=== PATIENT | male | born 1955 | race Caucasian/White ===

== ENCOUNTER 2017-12-19 17:21 | Emergency (ER) | payer OTHER, SELFPAY ==
[2017-12-19 17:22] VITALS: BP 179/98; PULSE 68; RESP 16; TEMP 36.9; O2SAT 100; BMI 30.1
--- NOTE | 2017-12-19 17:49 | ED.VISSUMM ---
- ER Visit Summary Date of Service: 12/19/17 Chief Complaint: Right index finger laceration History of Present Illness: The patient is a 62 M hand dominant. Yesterday he had his right index finger lacerated between 2 pipes. Said it was not smashed it was more sheared. This is more than 24 hours old. His tetanus is up-to-date less than 1 year ago. He denies other injuries. Physical Examination: Well-appearing male. Vital signs are stable afebrile. HEENT exam normal. Neck normal. Lungs clear to auscultation bilaterally. Heart regular rate and rhythm. Abdomen soft nontender. Extremities moving all 4. Neurovascular intact. His right index finger at the tip along the nail there is a laceration on the radial side. Oozing of blood. No gross bony deformity. He has full flexion-extension. Neurovascularly intact with normal sensation. Test Results: Patient did not want an x-ray obtained. Emergency Department Course and Treatment: Discussed with patient given his 24+ hours old we will not close it. Wound will be cleaned and dressed. Treatment Plan: Wound care. Return if any signs of infection. Disposition: Discharge Impression: Acute right index finger laceration with delayed presentation of more than 24 hours. (No repair) This note was generated with [employer] dictation software. It may contain incorrect words, spelling, and punctuation that were not noted in review of the chart prior to signing ED Disposition - Plan for ED Patient: Chief Complaint: Laceration Referrals: Angelica Fierro [Primary Care Provider] -
--- NOTE | 2017-12-19 17:52 | ED.DCSUM_ITS ---
- ER Visit Summary Date of Service: 12/19/17 Chief Complaint: Right index finger laceration History of Present Illness: The patient is a 62 M hand dominant. Yesterday he had his right index finger lacerated between 2 pipes. Said it was not smashed it was more sheared. This is more than 24 hours old. His tetanus is up-to- date less than 1 year ago. He denies other injuries. Physical Examination: Well-appearing male. Vital signs are stable afebrile. HEENT exam normal. Neck normal. Lungs clear to auscultation bilaterally. Heart regular rate and rhythm. Abdomen soft nontender. Extremities moving all 4. Neurovascular intact. His right index finger at the tip along the nail there is a laceration on the radial side. Oozing of blood. No gross bony deformity. He has full flexion-extension. Neurovascularly intact with normal sensation. Test Results: Patient did not want an x-ray obtained. Emergency Department Course and Treatment: Discussed with patient given his 24+ hours old we will not close it. Wound will be cleaned and dressed. Treatment Plan: Wound care. Return if any signs of infection. Disposition: Discharge Impression: Acute right index finger laceration with delayed presentation of more than 24 hours. (No repair) This note was generated with [employer] dictation software. It may contain incorrect words, spelling, and punctuation that were not noted in review of the chart prior to signing ED Disposition - Plan for ED Patient: Chief Complaint: Laceration Referrals: Angelica Fierro [Primary Care Provider] -
--- NOTE | 2017-12-19 17:52 | ED.DEP ---
ED Disposition - Plan for ED Patient: Disposition: Home or Assisted Living Chief Complaint: Laceration Instructions: ED Laceration Hand Referrals: Angelica Fierro [Primary Care Provider] - As Needed Additional Instructions: Keep wound clean. May wash thoroughly but dry thoroughly also. Motrin for pain and Tylenol. Watch for any signs of infection such as swelling, redness, fever, streaks or pus. If seen return.
== END 2017-12-19 18:11 | disposition home or self-care (01) ==
PROVIDERS: Emergency Provider Emergency Medicine; Family Provider Family Medicine; PCP Family Medicine
DX: S61.210A Laceration without foreign body of right index finger without damage to nail, initial encounter (principal); W23.1XXA Caught, crushed, jammed, or pinched between stationary objects, initial encounter; Y93.9 Activity, unspecified; Y92.9 Unspecified place or not applicable; Y99.9 Unspecified external cause status; I10 Essential (primary) hypertension
CPT/HCPCS: 99283

== ENCOUNTER 2020-12-15 13:34 | Inpatient (IN) | payer OTHER, BC, SELFPAY ==
[2020-12-15] VITALS (18 sets, daily range): BP systolic 110–166; BP diastolic 65–97; PULSE 65–103; RESP 13–20; TEMP 36.6–37.1; O2SAT 93–100; BMI 29.7; BMI 28.3
--- NOTE | 2020-12-15 14:06 | CT_ITS ---
STUDY: CT BRAIN WITHOUT CONTRAST REASON FOR EXAM: Male, 65 years old. Hallucinations RADIATION DOSAGE (If Supplied By Facility): CTDIvol = ( 38.43 ) mGy, DLP = ( 770.33 ) mGycm TECHNIQUE: Transaxial CT imaging of the brain was performed without administration of intravenous contrast material. Individualized dose optimization techniques were used for this CT. COMPARISON: No relevant priors. FINDINGS: Normal soft tissue structures. Normal calvarium. There is mild cerebral atrophy with widening of the extra-axial spaces and ventricular dilatation. Normal white matter tracts of the cerebral hemispheres. Normal basal ganglia and thalami. Normal brainstem. Normal cerebellum. There is no intracranial hemorrhage. There are no findings of an acute ischemic infarction. Opacification of the maxillary sinus bilaterally. Partial opacification of the ethmoid sinuses bilaterally. There is evidence of a nondisplaced transverse fracture of the base of the odontoid as seen on limited assessment of the upper cervical spine. CT/Brain/Head without Contrast IMPRESSION: Chronic involutional changes of the brain. Bilateral maxillary and ethmoid sinusitis. There is a nondisplaced transverse fracture at the base of the odontoid as seen on limited assessment of the upper cervical spine Electronically Signed: Michelet Alvarez MD at 15:03 EDT , Service support ,
--- NOTE | 2020-12-15 14:06 | EKG12_ITS ---
Test Reason : Blood Pressure : / mmHG Vent. Rate : 071 BPM Atrial Rate : 284 BPM P-R Int : 000 ms QRS Dur : 122 ms QT Int : 432 ms P-R-T Axes : 001 -50 071 degrees QTc Int : 469 ms Atrial flutter with 4:1 A-V conduction Left anterior fascicular block Left ventricular hypertrophy with QRS widening Nonspecific ST and T wave abnormality Abnormal ECG Confirmed by TERI CABRERA, ISHMAEL ([id number]), editorial clerk MELISSA HUMPHREYS ([id number]) on 12/16/2020 12:04:01 PM Referred By: MJ Confirmed By:ISHMAEL WILLIAMSON MD
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
[2020-12-15 14:43] LABS: Absolute Lymphocyte Count 0.71 X10^3/uL (0.83-4.51); Absolute Neutrophil Count 4.1 X10^3/uL (2.0-7.7); Basophil# 0.01 X10^3/uL; Basophil% 0.2 % (0-1); Eosinophil# 0.04 X10^3/uL; Eosinophils% 0.7 % (0-5); Hematocrit 34.8 % (40-54); Hemoglobin 12.4 g/dL (13.0-16.5); Lymphocyte # 0.71 X10^3/ul (0.83-4.51); Lymphocyte % 12.4 % (19-41); Mean Corp Hgb Conc 35.6 g/dL (32-36); Mean Corpuscular Hgb 27.8 pg (27.0-32.0); Mean Platelet Vol. 9.6 fl (6.2-12.0); Monocyte# 0.82 X10^3/uL; Monocyte% 14.3 % (0-10); NRBC Flagged by Analyzer 0 % (0-5); Neutrophil # 4.09 X10^3/uL (2.7-7.7); Neutrophil % 71.4 % (47-70); Platelet Count 280 K/mm3 (150-450); RBC Distribution Width CV 14.3 % (11.6-14.6); RBC Distribution Width SD 40.1 fl (35.1-43.9); Red Blood Count 4.46 M/mm3 (4.6-6.2); White Blood Count 5.7 K/mm3 (4.4-11.0)
[2020-12-15] MEDS: 0.9% Normal Saline 1,000 ML 150 ML IV (15:01)
[2020-12-15 15:02] LABS: AST(SGOT) 121 U/L (15-37); Alanine Aminotransfer ALT/SGPT 70 U/L (16-61); Albumin, Serum 3.5 g/dL (3.2-5.0); Alkaline Phosphatase 164 U/L (45-117); Anion Gap 12 (5-15); BUN 8 mg/dL (7-18); BUN/Creat Ratio 14.3 RATIO (10-20); Calcium,Total 8.2 mg/dL (8.5-10.1); Chloride 71 mmol/L (98-107); Creatinine, Serum 0.56 mg/dL (0.70-1.30); EST Glomerular Filtration Rate 156 mL/min (>60); Est Glom Filt Rate - Afr Amer 189 mL/min (>60); Estimated Creatinine Clearance 133.26 ml/min; Globulin 3.6 g/dL (2.2-4.2); Glucose 95 mg/dL (74-106); Potassium 3.4 mmol/L (3.5-5.1); Protein, Total 7.1 g/dL (6.4-8.2); Sodium Level 108 mmol/L (136-145); Troponin-I HS 22.8 pg/mL (3.0-78.5)
[2020-12-15 15:26] LABS: Bacteria 0 SEEN /hpf (None Seen); Mucous, Urine 0 SEEN /hpf (<or=2+); Red Blood Cells-Urine 0 SEEN /hpf (0-5); Squamous Epithelial Cells - UA 0 SEEN /hpf (0-5); White Blood Cells 0 SEEN /hpf (0-5)
[2020-12-15 15:29] LABS: Color, Urine Yellow (Yellow); Glucose, Dipstick Normal (Normal); Ketone-Dipstick 5 mg/dl (Negative); Leukocyte Esterase-Dipstick Negative /ul (Negative); Nitrite-Dipstick Negative (Negative); Occult Blood-Urine Negative /ul (Negative); Protein-Dipstick 15 mg/dl (Negative); Specific Gravity, Urine 1.015 (1.002-1.030); Urine Bilirubin Dipstick Negative (Negative); Urine Clarity Clear (Clear); Urine Urobilinogen Normal (Normal)
[2020-12-15 15:40] LABS: Amphetamine Urine VISTA NEGATIVE (<1000 ng/mL); Barbiturate Urine VISTA NEGATIVE (< 200 ng/mL); Benzodiazepine Urine VISTA NEGATIVE (< 200 ng/mL); Cocaine Urine VISTA NEGATIVE (< 300 ng/mL); Ecstacy Urine VISTA NEGATIVE (< 500 ng/mL); Methadone Urine VISTA NEGATIVE (< 300 ng/mL); PCP Urine VISTA NEGATIVE (< 25 ng/mL); THC Urine VISTA NEGATIVE (< 50 ng/mL); Vista UDS pH Range 7
--- NOTE | 2020-12-15 16:25 | NURSING ---
[id number] TERELETSANGEL HYPONATREMIA, HALLUCINATIONS
[2020-12-15 18:15] LABS: Thyroid Stim Hormone (TSH) 1.67 uIU/mL (0.358-3.74)
--- NOTE | 2020-12-15 18:20 | ECHOCS_ITS ---
Reason For Study: A. flutter Procedure This was a 2D Doppler, Color Flow transthoracic echocardiogram. The study was technically difficult. Patient intubated, scanned supine. Exam performed portable in ICU/CCU. Left Ventricle Normal LV size. Moderate concentric left ventricular hypertrophy. Left ventricular systolic function is normal. The estimated ejection fraction is 60 %. No regional wall motion abnormalities noted. Right Ventricle Normal RV size. Normal systolic function. Atria Normal left atrium. Normal right atrium. Mitral Valve An annuloplasty ring is noted in the mitral position. Tricuspid Valve Normal tricuspid valve. Aortic Valve Trisinus/trileaflet aortic valve. Pulmonic Valve The pulmonic valve is not well visualized. Great Vessels Normal aortic root. The pulmonary artery is normal size. Normal inferior vena cava. Pericardium/Pleural No pericardial effusion. Medication Diluted definity 2ml given slow IV push to enhance endocardial definition. MMode/2D Measurements & Calculations LVIDd: 4.0 cm IVSd: 1.5 cm Ao root diam: 3.6 cm LVIDs: 2.4 cm LVPWd: 1.4 cm RVDd: 3.2 cm FS: 40.2 % LAV(MOD-bp): 59.4 ml LVAd ap4: 33.9 cm2 SV(MOD-sp4): 67.2 ml LAV(MOD-bp) Indexed: 29.4 ml/m2 LVLd ap4: 8.2 cm LAV(MOD-sp2): 62.4 ml EDV(MOD-sp4): 113.4 ml LAV(MOD-sp4): 54.8 ml EDV(sp4-el): 119.6 ml LVAs ap4: 20.1 cm2 LVLs ap4: 7.3 cm ESV(MOD-sp4): 46.2 ml ESV(sp4-el): 47.2 ml EF(MOD-sp4): 59.3 % EF(sp4-el): 60.5 % SV(sp4-el): 72.4 ml LA A4 area: 20.0 cm2 LA dimension(2D): 4.3 cm RA A4 area: 17.1 cm2 Doppler Measurements & Calculations MV E max connor: 142.8 cm/sec MV V2 max: 140.0 cm/sec MV P1/2t max connor: 124.7 cm/sec MV max P.8 mmHg MV P1/2t: 114.3 msec MV V2 mean: 67.0 cm/sec MV dec slope: 319.7 cm/sec2 MV mean P.4 mmHg MVA(P1/2t): 1.9 cm2 MV V2 VTI: 33.6 cm Ao V2 max: 102.1 cm/sec LV V1 max: 88.6 cm/sec PA V2 max: 95.2 cm/sec Ao max P.2 mmHg LV V1 max P.1 mmHg TR max connor: 230.7 cm/sec TR max P.4 mmHg ECHO/Echo Complete W/ Contrast Interpretation Summary Normal LV size. Left ventricular systolic function is normal. The estimated ejection fraction is 60 %. Moderate concentric left ventricular hypertrophy. An annuloplasty ring is noted in the mitral position. Contrast injection was performed. Ordering Physician: Jimenez Gallo Referring Physician: Douglas Kathleen Performed By: Radha Johnson RDCS
[2020-12-15 18:21] LABS: Osmolality, Serum 221 mOsm/KG (280-301)
[2020-12-15 18:31] LABS: Urine Sodium 52 mmol/L (Not Establ.)
[2020-12-15 18:39] LABS: Osmolality, Urine 280 mOsm/KG
--- NOTE | 2020-12-15 19:07 | PCM.HP.STD ---
HPI - General General Date of Admission: 12/15/20 Date of Service: 12/15/20 Chief Complaint: Altered mental status HPI Narrative SOFÍA KOEHLER, is a 65 M who presents to the emergency room at [facility] after being brought in by his after he complained of seeing things at home which appear to be hallucinations. Patient's past medical history includes a recent fracture of C1 and C2 as well as T6 after he fell from a truck while working. This happened approximately 2 weeks ago while he was working in [place]. Patient was also briefly hospitalized at a local [facility] 6 to 8 weeks ago with low sodium, according to the , the etiology of the low sodium was never ascertained. Work-up in the emergency room today included a CT of the brain which showed no acute process, patient had labs performed which showed a low sodium at 108, patient's chloride was also low at 71, his potassium was slightly low at 3.4. Patient's AST was elevated at 121, ALT was elevated at 70, and alkaline phosphatase was elevated at 164. Patient's EKG showed atrial flutter at a 4-1 conduction. On examination, patient appeared alert and he responded appropriately to simple questions. Patient will be admitted to ICU for hyponatremia-etiology unclear and new onset atrial flutter, he will be seen in consultation by nephrology who I talked with by phone today (Dr. Crockett), critical care will be consulted. Patient will have an echocardiogram performed, patient's rate is well controlled on his home metoprolol. ON LICENSE OF [facility] Medical History (Updated 12/15/20 @ 16:[address] Kaushik Martinez, ) Burst fracture of lumbar vertebra C1 cervical fracture HTN (hypertension) Lumbar compression fracture Non-smoker Thoracic compression fracture Home Medications metoprolol tartrate 50 mg PO BID 12/19/17 [History Last Taken 12/15/20] acetaminophen [Tylenol Extra Strength] 500 mg PO Q6H PRN 12/15/20 [History Last Taken 12/14/20] hydrochlorothiazide 25 mg PO DAILY 12/15/20 [History Last Taken 12/15/20] omega-3 fatty acids [Fish Oil] 1,000 mg PO DAILY 12/15/20 [History Last Taken 12/14/20] omeprazole 20 mg PO QHS 12/15/20 [History Last Taken 12/14/20] tizanidine 4 mg PO QHS 12/15/20 [History Last Taken 12/12/20] Allergy/AdvReac Type Severity Reaction Status Date / Time Penicillins Allergy Unknown Verified 12/15/20 13:40 ciprofloxacin [From Cipro] AdvReac Nausea/Vom/ Verified 12/15/20 13:40 Diarrhea Surgical History (Updated 12/15/20 @ 13:46 by Glenys Gee) Mitral valve replaced Social History Smoking Status: Never smoker ROS Constitutional Constitutional: Denies anorexia, change in weight, chills, fatigue, fever(s), night sweats or weakness Eyes Eyes: Denies blurry vision, change in vision, discharge from eye(s) or eye pain ENT HEENT: Denies abnormal hearing or dysphagia Cardiovascular Cardiovascular: Denies chest pain, claudication, dyspnea on exertion, edema, lightheadedness or palpitations Respiratory/Chest Respiratory/Chest: Denies cough, hemoptysis, shortness of breath at rest or shortness of breath with exertion Gastrointestinal Gastrointestinal: Denies abdominal pain, constipation, diarrhea, hematemesis, hematochezia, melena, nausea or vomiting Genitourinary Genitourinary: Denies dysuria, hematuria, urinary frequency, urinary hesitancy, urinary incontinence or urinary urgency Musculoskeletal Musculoskeletal: Denies back pain, joint pain, joint stiffness, joint swelling, myalgias or neck pain Neurologic Neurologic: Reports other Details: Patient's stated the patient was having hallucinations at home, patient could not tell me exactly what these were. ; Denies abnormal gait, abnormal speech, dizziness, focal weakness, headache(s), loss of vision, numbness, other visual disturbances, paresthesias, syncope or tingling Psychiatric Psychiatric: Denies anxiety, cognitive impairment, depression, irritability, mood swings or suicidal ideation Endocrine Endocrinology: Denies change in body appearance, cold intolerance, excessive sweating, heat intolerance, polydipsia or polyuria Hematologic/Lymphatic Hematologic/Lymphatic: Denies none, anemia, easy bleeding, easy bruising or lymphadenopathy Allergic/Immunologic Allergic/Immunologic: Denies rhinitis, urticaria, eczemia or asthma Vital Signs Vital Signs Vital Signs: 12/15/20 13:35 12/15/20 14:34 12/15/20 15:31 Temperature 98.1 F Temperature Source Temporal Pulse Rate 83 81 79 Respiratory Rate 16 16 16 Blood Pressure 144/88 H 140/70 H 136/75 H Blood Pressure [BP] Blood Pressure Mean 106 93 95 Blood Pressure Mean [BP] Blood Pressure Source Blood Pressure Source [BP] Blood Pressure Position Blood Pressure Position [BP] Blood Pressure Location Blood Pressure Location [BP] Pulse Ox 93 96 97 Oxygen Delivery Method Room Air Room Air Room Air 12/15/20 16:38 12/15/20 17:10 12/15/20 17:20 Temperature 97.8 F 98 F Temperature Source Temporal Oral Pulse Rate 72 70 70 Respiratory Rate 17 15 13 Blood Pressure 110/95 H 157/86 H Blood Pressure [BP] 157/86 H Blood Pressure Mean 100 109 Blood Pressure Mean [BP] 109 Blood Pressure Source Monitor Blood Pressure Source [BP] Monitor Blood Pressure Position Semi-Fowlers Blood Pressure Position [BP] Semi-Fowlers Blood Pressure Location Left Arm Blood Pressure Location [BP] Left Arm Pulse Ox 98 100 100 Oxygen Delivery Method Room Air Room Air Room Air 12/15/20 17:25 12/15/20 17:40 12/15/20 17:55 Temperature 97.8 F Temperature Source Temporal Pulse Rate 70 70 91 Respiratory Rate 15 13 16 Blood Pressure 157/86 H 166/88 H 132/97 H Blood Pressure [BP] Blood Pressure Mean 109 114 108 Blood Pressure Mean [BP] Blood Pressure Source Monitor Monitor Monitor Blood Pressure Source [BP] Blood Pressure Position Semi-Fowlers Semi-Fowlers Semi-Fowlers Blood Pressure Position [BP] Blood Pressure Location Right Arm Right Arm Left Arm Blood Pressure Location [BP] Pulse Ox 100 98 100 Oxygen Delivery Method Room Air Room Air Room Air 12/15/20 18:00 Temperature Temperature Source Pulse Rate 103 H Respiratory Rate 13 Blood Pressure Blood Pressure [BP] 164/94 H Blood Pressure Mean Blood Pressure Mean [BP] 117 Blood Pressure Source Blood Pressure Source [BP] Monitor Blood Pressure Position Blood Pressure Position [BP] Semi-Fowlers Blood Pressure Location Blood Pressure Location [BP] Right Arm Pulse Ox 100 Oxygen Delivery Method Room Air Weight Weight: 87.09 kg Body Mass Index (BMI) 28.3 Physical Exam Narrative Patient is wearing a rigid neck brace and a thoracic brace at the time of my examination Const alert, oriented x3, no apparent distress, average body habitus and healthy appearing General Appearance: cooperative, well kempt and well developed Orientation / Consciousness: awake, oriented to person, oriented to place and oriented to time HEENT normocephalic and moist oral mucous membranes Eyes PERRL, EOMs intact bilaterally and conjunctivae normal Neck nuchal rigidity, supple, no JVD, thyroid normal and no carotid bruits General: trachea midline Resp normal respiratory effort, no retractions, no use of accessory muscles and clear to auscultation bilaterally Auscultation: Negative for rales, rhonchi or wheezes Cardio regular rate, regular rhythm, S1 normal heart sound, S2 normal heart sound, no murmurs, no rub and no gallops GI normal to inspection, nondistended, normoactive bowel sounds, soft to palpation, non-tender and non-distended Extremity no clubbing, cyanosis or edema Skin no rashes or lesions noted General Skin Exam: no breakdown Neuro oriented x3, CN's II-XII intact bilaterally, no focal motor deficits and no sensory deficits noted Sensorium / Orientation: awake and alert Speech: speech normal Psych thought process normal and affect normal Results Lab / Micro Data Result Diagrams: 12/15/20 14:30 12/15/20 19:00 Labs: Laboratory Results - last 24 hr 12/15/20 14:30: WBC 5.7, RBC 4.46 L, Hgb 12.4 L, Hct 34.8 L, MCV 78.0 L, MCH 27.8, MCHC 35.6, RDW Std Deviation 40.1, RDW Coeff of [place] 14.3, Plt Count 280, MPV 9.6, Immature Gran % (Auto) 1.000 H, Neut % (Auto) 71.4 H, Lymph % (Auto) 12.4 L, [place] % (Auto) 14.3 H, Eos % (Auto) 0.7, Baso % (Auto) 0.2, Absolute Neuts (auto) 4.1, Absolute Lymphs (auto) 0.71 L, Nucleated RBC % 0 12/15/20 14:30: Sodium 108 L*, Potassium 3.4 L, Chloride 71 L*, Carbon Dioxide 25.0, Anion Gap 12, BUN 8, Creatinine 0.56 L, Estim Creat Clear Calc 133.26, Est GFR (MDRD) Af Amer 189, Est GFR (MDRD) Non-Af 156, BUN/Creatinine Ratio 14.3, Glucose 95, Calcium 8.2 L, Total Bilirubin 1.00, AST 121 H, ALT 70 H, Alkaline Phosphatase 164 H, Troponin I High Sens 22.8, Total Protein 7.1, Albumin 3.5, Globulin 3.6, Albumin/Globulin Ratio 1.0 12/15/20 14:30: Ethyl Alcohol 5.0 12/15/20 14:30: TSH 1.67 12/15/20 14:30: Cortisol 20.50 12/15/20 15:15: Urine Color Yellow, Urine Clarity Clear, Urine pH 8.0, Ur Specific [place] 1.015, Urine Protein 15 H, Urine Glucose (UA) Normal, Urine Ketones 5 H, Urine Occult Blood Negative, Urine Nitrite Negative, Urine Bilirubin Negative, Urine Urobilinogen Normal, Ur Leukocyte Esterase Negative, Urine RBC 0 SEEN, Urine WBC 0 SEEN, Ur Squamous Epith Cells 0 SEEN, Urine Bacteria 0 SEEN, Urine Mucus 0 SEEN 12/15/20 15:15: Urine Opiates Screen NEGATIVE, Urine Methadone Screen NEGATIVE, Ur Barbiturates Screen NEGATIVE, Ur Phencyclidine Scrn NEGATIVE, Ur Amphetamines Screen NEGATIVE, U Methamphetamin-MDMA NEGATIVE, U Benzodiazepines Scrn NEGATIVE, Urine Cocaine Screen NEGATIVE, U Cannabinoids Screen NEGATIVE, Ur Drug Screen Comment 12/15/20 17:30: Serum Osmolality 221 L 12/15/20 18:10: Urine Osmolality 280, Ur Random Sodium [address] 12/15/20 14:06 IMPRESSION: Chronic involutional changes of the brain. Bilateral maxillary and ethmoid sinusitis. There is a nondisplaced transverse fracture at the base of the odontoid as seen on limited assessment of the upper cervical spine Electronically Signed: Michelet Alvarez MD at 15:03 EDT , Service support , Assessment & Plan Assessment/Plan (1) Acute hyponatremia: PLAN: 1. Severe hyponatremia-etiology unclear at this time, patient will be admitted to ICU, nephrology will see the patient in consultation, patient will be given no IV fluids yet, additional labs were obtained on admission and are pending, results will be relayed to nephrology. #2 atrial flutter-with 4-1 conduction, new onset, patient does not have a history of flutter, I will order an echocardiogram, it may be necessary for cardiology to see the patient, at this time I do not feel the patient needs immediate anticoagulation at this time #3 elevated liver enzymes-etiology unclear, CMP will be repeated in the morning #4 Hypokalemia-patient will be given oral potassium #5 recent cervical fractures of C1 and C2-rigid collar will be maintained, patient saw Dr. Chisholm recently for consultation and according to the , it was instructed that he should have the collar in place at all times. #6 recent thoracic vertebrae fracture T6-according to the patient's , he may take the thoracic brace off at times for hygiene. #7 essential hypertension #8 metabolic encephalopathy-this appears to be mild at this time, patient is able to answer simple questions to this examiner, he is alert and does not appear to be in any distress. Charges/Coding Visit Charges Inpatient E&M: 98425 Init Hosp L3
[2020-12-15 19:23] LABS: Anion Gap 10 (5-15); BUN 8 mg/dL (7-18); BUN/Creat Ratio 15.8 RATIO (10-20); Calcium,Total 8.3 mg/dL (8.5-10.1); Chloride 74 mmol/L (98-107); EST Glomerular Filtration Rate 176 mL/min (>60); Est Glom Filt Rate - Afr Amer 213 mL/min (>60); Estimated Creatinine Clearance 149.26 ml/min; Glucose 99 mg/dL (74-106); Magnesium 1.6 mg/dL (1.6-2.6); Phosphorus 2.9 mg/dL (2.5-4.9); Potassium 3.2 mmol/L (3.5-5.1); Sodium Level 108 mmol/L (136-145)
[2020-12-15] MEDS: Potassium Chloride Oral Tablet 20 MEQ 40 MEQ PO (21:20)
[2020-12-15] MEDS: Metoprolol Tartrate 50 MG Tablet PO (21:21)
[2020-12-15] MEDS: Pantoprazole Sodium 20 MG Tablet PO (21:21)
[2020-12-15] MEDS: Heparin Injection (Vial) 5,000 UNIT/ML VIAL 5000 UNIT SC (21:21)
[2020-12-15] MEDS: tiZANidine HCl 2 MG Tablet 4 MG PO (21:22)
[2020-12-15] MEDS: Acetaminophen 325 MG Tablet 650 MG PO (21:24)
[2020-12-15] MEDS: QUEtiapine 25 MG Tablet 12.5 MG PO (22:07)
[2020-12-15] MEDS: Haloperidol Lactate 5 MG/ML Vial 2 MG IV (22:07)
[2020-12-15] MEDS: Haloperidol Lactate 5 MG/ML Vial 3 MG IV (23:37)
[2020-12-16] VITALS (76 sets, daily range): BP systolic 55–200; BP diastolic 26–151; PULSE 52–131; RESP 10–24; TEMP 36.2–37.1; O2SAT 93–100
[2020-12-16 00:09] LABS: Sodium Level 109 mmol/L (136-145)
--- NOTE | 2020-12-16 00:56 | RAD_ITS ---
STUDY: X-RAY CHEST REASON FOR EXAM: Male, 65 years old. SOB TECHNIQUE: Single AP portable view of the chest. COMPARISON: None. FINDINGS: Lungs are underexpanded otherwise clear. There is no demonstrated pleural abnormality. Normal size heart. Midline sternotomy wires noted. There is evidence of valve placement surgery. Normal mediastinum and surendra. Normal visualized pulmonary arteries. There is atherosclerotic calcification of the aortic arch with tortuosity. There are degenerative changes of the visualized thoracic spine. There is degenerative osteoarthritis of the bilateral shoulders. There is no demonstrated abnormality of the visualized soft tissue structures of the upper abdomen. RAD/Chest 1 View (Portable) IMPRESSION: No acute cardiopulmonary disease. Electronically Signed: Yoanna Flores MD at 2:14 EDT , Service support ,
[2020-12-16] MEDS: Furosemide 20 MG/2 ML VIAL IV (01:12)
--- NOTE | 2020-12-16 01:20 | PN_ITS ---
Progress Note Patient evaluated 12/16/2020 at 1:20 AM Called to bedside for patient assessment by Carly KLEIN due to concerns of change in neuro status and increased agitation. Per RN report patient has become more agitated and confused and is no longer able to be redirected. Upon assessment patient is alert to self only and is unable to be reoriented. Patient is currently in bed grabbing at things in the air that are not there with garbled speech, attempting to get out of bed and pulling at catheter and IV lines. Physical Exam Const General Appearance: uncooperative Orientation / Consciousness: awake, oriented to person, confused and disoriented HEENT Head and Scalp: laceration Laceration Details: Positive for linear Laceration Size: Intact and healing, no warmth, redness or swelling noted Eyes Eyes Narrative: No corneal reflex when touched with gauze General Eye: decreased light reflex Eyelid: eyelids normal Conjunctiva: conjunctiva normal Sclera: sclera normal Cornea: cornea normal Pupil: pinpoint Positive for bilateral Neck Neck Narrative: Unable to test patient currently in c-collar for C1 and C2 fracture General: trachea midline Chest inspection of chest normal Resp Resp Narrative: Sonorous respirations despite patient being awake with garbled speech Effort and Inspection: able to speak in complete sentences, symmetric chest movement, tachypneic and labored Cardio regular rate, regular rhythm, S1 normal heart sound, S2 normal heart sound and peripheral pulses 2+ throughout Rate: tachycardic GI normal to inspection, nondistended, normoactive bowel sounds, soft to palpation and non-tender Back/Spine Back/Spine Narrative: Unable to test range of motion, patient currently in back brace due to recent fall and subsequent spinal fractures Extremity normal to inspection, full ROM, normal capillary refill and no clubbing, cyanosis or edema Skin no rashes or lesions noted and skin turgor normal Wounds: wounds noted Wound Narrative: Laceration as noted above Neuro moves all extremities, no focal motor deficits and no sensory deficits noted Speech: speech abnormal Details: Positive for garbled (Worsening) Psych Attitude: agitated Activity / Motor Behavior: hyperactive and restless Speech: incoherent, rapid, slurred and other Thought Process: incoherent, disorganized and confused Thought Content: hallucination(s) Positive for visual Assessment & Plan Assessment/Plan (1) Altered mental status: QUALIFIERS: Altered mental status type: disorientation Qualified Code(s): R41.0 - Disorientation, unspecified PLAN: Remained at patient bedside and continued evaluations through work- up from 1:20 AM until [address] was completed. Discussed case with Dr. Salinas several times including initially at which time it was decided to obtain a chest x-ray and ABG. ABG and chest x-ray unremarkable and results were discussed with Dr. Salinas. Due to patient's concerning neuro status and neuro findings during my evaluations it was then determined after further discussion with Dr. Salinas that a brain CT would be repeated along with a repeat cervical spine CT. imaging results are pending, signout was given to Dr. Salinas.
--- NOTE | 2020-12-16 01:22 | CT_ITS ---
STUDY: CT BRAIN WITHOUT CONTRAST REASON FOR EXAM: Male, 65 years old. Bleed RADIATION DOSAGE (If Supplied By Facility): CTDIvol = ( 44.99 ) mGy, DLP = ( 947.97 ) mGycm TECHNIQUE: Transaxial CT imaging of the brain was performed without administration of intravenous contrast material. Individualized dose optimization techniques were used for this CT. COMPARISON: 12/15/2020. FINDINGS: Mild scalp swelling identified at the mid posterior vertex. Normal calvarium. There is mild cerebral atrophy with widening of the extra-axial spaces and ventricular dilatation. Normal white matter tracts of the cerebral hemispheres. Normal basal ganglia and thalami. Normal brainstem. Normal cerebellum. There is no intracranial hemorrhage. There are no findings of an acute ischemic infarction. Complete opacification of the bilateral maxillary sinus with partial opacification of the bilateral ethmoids consistent with sinusitis. Incidental note is made of fracture involving the odontoid base. Additional fracture identified at the anterior arch of C1 and posterior elements of C1. CT/Brain/Head without Contrast IMPRESSION: No acute intracranial process seen. Bilateral maxillary sinusitis. Fractures of the C1 and C2, please see accompanying CT of the cervical spine report. Electronically Signed: Yoanna Flores MD at 2:49 EDT , Service support ,
--- NOTE | 2020-12-16 01:26 | CT_ITS ---
We are attempting to reach an attending provider to discuss findings. An addendum with communication details will be sent when the communication is complete. STUDY: CT CERVICAL SPINE WITHOUT CONTRAST REASON FOR EXAM: Male, 65 years old. previous injury RADIATION DOSAGE (If Supplied By Facility): CTDIvol = ( 27.25 ) mGy, DLP = ( 1125.78 ) mGycm TECHNIQUE: High resolution transaxial imaging was performed without contrast material. Sagittal and coronal images were reconstructed. Individualized dose optimization techniques were used for this CT. COMPARISON: None FINDINGS: Normal craniovertebral junction. Fracture identified at the anterior C1 and bilateral posterolateral elements of C1. There is a fracture involving the odontoid base. There is fracture involving the spinous process of C2. There is reversal of the normal cervical lordosis. Diffuse osteopenia with multilevel disc degenerative disease, more severe at C5-C6 and C6-C7. Multilevel bilateral facet hypertrophy. C2-3: Degenerative disease. The right-sided facet hypertrophy. No central canal stenosis or neuroforaminal encroachment. C3-4: Degenerative disease with bilateral apophyseal hypertrophy. Moderate to severe right-sided neural foraminal encroachment. No central canal stenosis. Minimal anterior subluxation of C3 on C4, likely degenerative related. C4-5: Degenerative disease with bilateral facet hypertrophy worse on the right compared to the left. Moderate right-sided neural foraminal encroachment. No central canal stenosis. C5-6: Disc osteophyte complex with no central canal stenosis. Mild foraminal encroachment. C6-7: Disc osteophyte complex with no central canal stenosis. Mild foraminal encroachment. C7-T1: Mild spondylosis. Normal disc height and morphology. Normal central canal and intervertebral neuroforamina. Normal visualized soft tissue structures. CT/Spine Cervical without Contras IMPRESSION: Fractures of the base of the odontoid and spinous process of the odontoid. Fracture involving the anterior arch of C1 and posterolateral elements of C1. Electronically Signed: Yoanna Mischiu, MD at 2:54 EDT , Service support ,
[2020-12-16 01:30] LABS: Base Excess -6 mmol/L (-2 to +2); Bicarbonate 18.6 mmol/L (22-26); Blood Gas Specimen Type ART; FI02 21; O2 Delivery Device Room Air; PO2 83 mmHG (75-100); SITE L Radial; SO2 97 % (95-99); Total Carbon Dioxide 19 mmol/L; pCO2 27.1 mmHg (35-45); pH 7.45 (7.35-7.45)
[2020-12-16] MEDS: LORazepam 2 MG/ML Syringe 0.5 MG IV (01:55)
--- NOTE | 2020-12-16 02:08 | NURSING ---
0120- Nay Hussein CNP at bedside assessing patient. Chest x-ray and ABG are ordered. 0130- After assessing patient and getting results a Brain/Neck CT is ordered due to change in mental status 0150- CT is ready for patient and patient is transported to CT. 0155- Ativan 0.5mg IVP is given according to order on AUG due to agitation. CT is done and transporting patient back to room. 0200- Patient is back in room and settled. Awaiting CT results and any new orders at this time. Will continue to monitor patient.
[2020-12-16 02:56] LABS: Bedside Glucose 169 mg/dL (70-110)
[2020-12-16 04:16] LABS: Absolute Neutrophil Count 9.3 X10^3/uL (2.0-7.7); Basophil# 0.02 X10^3/uL; Basophil% 0.2 % (0-1); Eosinophil# 0.01 X10^3/uL; Eosinophils% 0.1 % (0-5); Hematocrit 35.3 % (40-54); Hemoglobin 12.6 g/dL (13.0-16.5); Lymphocyte % 4.7 % (19-41); Mean Corp Hgb Conc 35.7 g/dL (32-36); Mean Corpuscular Hgb 28.1 pg (27.0-32.0); Mean Corpuscular Volume 78.6 fL (80-94); Mean Platelet Vol. 9.7 fl (6.2-12.0); Monocyte# 0.79 X10^3/uL; Monocyte% 7.4 % (0-10); NRBC Flagged by Analyzer 0 % (0-5); Neutrophil # 9.29 X10^3/uL (2.7-7.7); Neutrophil % 86.9 % (47-70); POSITIVE DIFFERENTIAL YES; POSITIVE MORPHOLOGY YES; Platelet Count 292 K/mm3 (150-450); RBC Distribution Width CV 14.1 % (11.6-14.6); RBC Distribution Width SD 40.4 fl (35.1-43.9); Red Blood Count 4.49 M/mm3 (4.6-6.2); White Blood Count 10.7 K/mm3 (4.4-11.0)
[2020-12-16 04:20] LABS: Differential Indicated SCAN CRITERIA MET
[2020-12-16 04:38] LABS: ALB/GLOB Ratio 1.1 RATIO (0.9-2.4); AST(SGOT) 102 U/L (15-37); Alanine Aminotransfer ALT/SGPT 71 U/L (16-61); Albumin, Serum 3.9 g/dL (3.2-5.0); Alkaline Phosphatase 183 U/L (45-117); Anion Gap 12 (5-15); BUN 8 mg/dL (7-18); BUN/Creat Ratio 12.2 RATIO (10-20); Calcium,Total 8.2 mg/dL (8.5-10.1); Chloride 73 mmol/L (98-107); Creatinine, Serum 0.66 mg/dL (0.70-1.30); EST Glomerular Filtration Rate 130 mL/min (>60); Est Glom Filt Rate - Afr Amer 158 mL/min (>60); Estimated Creatinine Clearance 113.07 ml/min; Globulin 3.6 g/dL (2.2-4.2); Glucose 125 mg/dL (74-106); Potassium 3.5 mmol/L (3.5-5.1); Protein, Total 7.5 g/dL (6.4-8.2); Sodium Level 111 mmol/L (136-145)
--- NOTE | 2020-12-16 05:44 | EX.PCM.CONCC ---
Assessment & Plan Assessment/Plan (1) Acute hyponatremia: PLAN: RECOMMENDATIONS: 1. Place hypertonic saline on hold, pending next sodium level check. 2. Obtain and send sputum for culture. 3. Obtain arterial blood gas in 1 hour. 4. Minimize sedating medications. Goal to maintain a RASS of -1 to 1. 5. Continue appropriate ICU prophylaxis. 6. Plan for paired spontaneous awakening and breathing trials beginning tomorrow. IMPRESSIONS: 1. Severe hyponatremia Unclear chronicity. However, the patient's did confirm decreased p.o. intake and concurrent use of diuretics, likely contributing to his hyponatremia. Nephrology is currently following to assist with management. The patient was initially started on hypertonic saline this morning with improvement in his sodium to 116. Therefore, the hypertonic saline will be placed on hold. Recommend cautious correction of his sodium level to avoid osmotic demyelination. Continue to monitor sodium levels on a serial basis. Hold diuretics accordingly. 2. Acute respiratory failure The patient did require intubation this morning over concerns for airway protection, as the patient was quite stuporous with sonorous respirations. He will be continued on assist control mode of mechanical ventilation with a goal to wean FiO2 to maintain saturations at or above 90%. Plan to initiate paired spontaneous awakening and breathing trials beginning tomorrow. 3. Encephalopathy Likely multifactorial in etiology. I do suspect that the patient's hallucinations were likely related to his Zanaflex use at home. Undoubtedly, component of his altered mentation was likely the consequence of his hyponatremia. I do anticipate improvement in his mentation with correction of the above and by withholding sedating medications as tolerated. 4. Recent fall with cervical and thoracic spine injuries Continue current precautions. 5. Hypertension/GERD Complicates care, management, recovery and prognosis. Hold home antihypertensives for now. Continue PPI therapy. CODE status: Discussed CODE status at length including difference between FULL code, DNR-CCA and DNR-CC status. Following discussions about the differences in these status, patient's requested FULL CODE STATUS. TIME: 80 minutes of critical care time, inclusive of procedures, was spent addressing the patient's severe hyponatremia, acute respiratory failure, encephalopathy, review of all data and collaboration with care team. ([id number]) HPI Consult Data Date of Consult: 12/16/20 HPI Narrative Reason for Consultation: Hyponatremia HPI Narrative: The patient is a 65-year-old male, with a history as outlined below, who presented to the emergency department on December 15 with altered mentation and visual hallucinations. History pertinent to the patient's hospitalization was obtained primarily via chart review, as the patient was far too altered to answer any questions. 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 He was admitted to a local hospital for 3 days and followed up with a local orthopedic family reunification specialist 48 hours ago. It does appear that the patient was placed on tizanidine 5 to 6 days ago. The patient does have an apparent drinking history. However, the exact amount of his daily consumption is unknown. On presentation to the emergency department, the patient was noted to be afebrile and hemodynamically stable. He was maintaining appropriate oxygen saturations on room air. Initial laboratory evaluation revealed a normal white blood cell count. Chemistry profile was notable for a sodium of 108, potassium of 3.4, chloride of 71 and creatinine of 0.56. Serum osmolality was low at 221. AST and ALT were mildly increased to 121 and 70, respectively. TSH and random cortisol levels were within normal limits. Troponin was negative. Urine analysis was unremarkable. Urine osmolality was noted to be 280 with a random urine sodium of 52. Toxicology screen was negative. Arterial blood gas obtained on room air revealed a pH of 7.45 with a corresponding PCO2 of 27 and PO2 of 83. CT head revealed chronic involutional changes of the brain along with a nondisplaced transverse fracture at the base of the odontoid. Chest x-ray was unremarkable. The patient was initially placed on normal saline and admitted to the medical intensive care unit for further management. Overnight, the patient did receive Zanaflex and Seroquel. Accordingly, the patient became more encephalopathic and hypotensive. He received a one-time 500 cc bolus of normal saline overnight. According to nursing report, the patient developed further alteration in his mental status acutely overnight, for which a repeat CT head was obtained. However, there were no acute changes noted on the head imaging study. The patient presented with a sodium of 108, which increased to 111 upon my review of the patient this morning. Given his further neurologic decompensation overnight, orders were placed for hypertonic saline. Additionally, the patient's was updated and CODE STATUS clarified to be full code. On my examination of the patient this morning he was noted to be rather obtunded with sonorous respirations. Therefore, the decision was made to intubate for airway protection. Intubation Indication: Airway protection Consent was obtained from: Patient's The patient was placed in the appropriate sniffing position. Preoxygenated sedation via [id number] was provided for a minimum of 3 minutes. The patient had continuous cardiac as well as pulse oximetry monitoring during the procedure. Procedure sedation was provided by the administration of 4 mg of Versed, 20 mg of etomidate and 150 mg of propofol. Direct laryngoscopy was then performed using a number 4 MAC blade, which revealed a grade 1 view. A 7.5 mm endotracheal tube was visualized advancing between the cords to the level of 23 cm at the lip. The stylette was then removed and discarded. Tube placement was confirmed by fogging in the tube along with equal and bilateral breath sounds. Colorimetric change was visualized on the CO2 meter. The cuff was then inflated and the tube secured using a commercially available device. A good pulse oximetry waveform was seen on the monitor throughout the procedure. A portable chest x-ray has been ordered to confirm appropriate placement. The patient tolerated the procedure well. UPDATE: I did call and speak with the patient's this morning. She indicated to me that the patient has been experiencing a loss of appetite and decreased p.o. intake over the course of the last several weeks since his accident. Despite this, he has continued to take his hydrochlorothiazide. She also reported that last month sometime the patient was hospitalized at [facility] due to hyponatremia. His sodium apparently got down as low as 120. She did confirm that prior to his accident, the patient was drinking 4-5 beers per day, but has not had any alcohol since that time. [facility] Medical History (Updated 12/16/20 @ 07:[address] Tarik Olvera MD) Burst fracture of lumbar vertebra C1 cervical fracture HTN (hypertension) Lumbar compression fracture Non-smoker Thoracic compression fracture Home Medications metoprolol tartrate 50 mg PO BID 12/19/17 [History Last Taken 12/15/20] acetaminophen [Tylenol Extra Strength] 500 mg PO Q6H PRN 12/15/20 [History Last Taken 12/14/20] hydrochlorothiazide 25 mg PO DAILY 12/15/20 [History Last Taken 12/15/20] omega-3 fatty acids [Fish Oil] 1,000 mg PO DAILY 12/15/20 [History Last Taken 12/14/20] omeprazole 20 mg PO QHS 12/15/20 [History Last Taken 12/14/20] tizanidine 4 mg PO QHS 12/15/20 [History Last Taken 12/12/20] Allergy/AdvReac Type Severity Reaction Status Date / Time Penicillins Allergy Unknown Verified 12/15/20 13:40 ciprofloxacin [From Cipro] AdvReac Nausea/Vom/ Verified 12/15/20 13:40 Diarrhea Surgical History (Updated 12/15/20 @ 13:46 by Glenys Gee) Mitral valve replaced Social History Smoking Status: Never smoker ROS Review of Systems ROS Unobtainable: due to endotracheal tube and due to mental status Physical Exam Const Constitutional Narrative: Sonorous respirations noted. Orientation / Consciousness: obtunded HEENT normocephalic and head/scalp atraumatic Mouth: dry mucous membranes Eyes PERRL and conjunctivae normal Neck supple General: trachea midline Resp Effort and Inspection: tachypneic and grunting Cardio S1 normal heart sound and S2 normal heart sound Rate: tachycardic GI normal to inspection, nondistended, normoactive bowel sounds Extremity no clubbing, cyanosis or edema Skin no rashes or lesions noted Neuro moves all extremities Sensorium / Orientation: orientation impaired and obtunded Psych Activity / Motor Behavior: restless Lab / Micro Data Result Diagrams: 12/16/20 04:05 12/16/20 11:59 Labs: Laboratory Results - last 24 hr 12/15/20 14:30: WBC 5.7, RBC 4.46 L, Hgb 12.4 L, Hct 34.8 L, MCV 78.0 L, MCH 27.8, MCHC 35.6, RDW Std Deviation 40.1, RDW Coeff of Mejia 14.3, Plt Count 280, MPV 9.6, Immature Gran % (Auto) 1.000 H, Neut % (Auto) 71.4 H, Lymph % (Auto) 12.4 L, [place] % (Auto) 14.3 H, Eos % (Auto) 0.7, Baso % (Auto) 0.2, Absolute Neuts (auto) 4.1, Absolute Lymphs (auto) 0.71 L, Nucleated RBC % 0 12/15/20 14:30: Sodium 108 L*, Potassium 3.4 L, Chloride 71 L*, Carbon Dioxide 25.0, Anion Gap 12, BUN 8, Creatinine 0.56 L, Estim Creat Clear Calc 133.26, Est GFR (MDRD) Af Amer 189, Est GFR (MDRD) Non-Af 156, BUN/Creatinine Ratio 14.3, Glucose 95, Calcium 8.2 L, Total Bilirubin 1.00, AST 121 H, ALT 70 H, Alkaline Phosphatase 164 H, Troponin I High Sens 22.8, Total Protein 7.1, Albumin 3.5, Globulin 3.6, Albumin/Globulin Ratio 1.0 12/15/20 14:30: Ethyl Alcohol 5.0 12/15/20 14:30: TSH 1.67 12/15/20 14:30: Cortisol 20.50 12/15/20 15:15: Urine Color Yellow, Urine Clarity Clear, Urine pH 8.0, Ur Specific [place] 1.015, Urine Protein 15 H, Urine Glucose (UA) Normal, Urine Ketones 5 H, Urine Occult Blood Negative, Urine Nitrite Negative, Urine Bilirubin Negative, Urine Urobilinogen Normal, Ur Leukocyte Esterase Negative, Urine RBC 0 SEEN, Urine WBC 0 SEEN, Ur Squamous Epith Cells 0 SEEN, Urine Bacteria 0 SEEN, Urine Mucus 0 SEEN 12/15/20 15:15: Urine Opiates Screen NEGATIVE, Urine Methadone Screen NEGATIVE, Ur Barbiturates Screen NEGATIVE, Ur Phencyclidine Scrn NEGATIVE, Ur Amphetamines Screen NEGATIVE, U Methamphetamin-MDMA NEGATIVE, U Benzodiazepines Scrn NEGATIVE, Urine Cocaine Screen NEGATIVE, U Cannabinoids Screen NEGATIVE, Ur Drug Screen Comment 12/15/20 17:30: Serum Osmolality 221 L 12/15/20 18:10: Urine Osmolality 280, Ur Random Sodium 52 12/15/20 19:00: Sodium 108 L*, Potassium 3.2 L, Chloride 74 L*, Carbon Dioxide 24.0, Anion Gap 10, BUN 8, Creatinine 0.50 L, Estim Creat Clear Calc 149.26, Est GFR (MDRD) Af Amer 213, Est GFR (MDRD) Non-Af 176, BUN/Creatinine Ratio 15.8, Glucose 99, Calcium 8.3 L, Phosphorus 2.9, Magnesium 1.6 12/15/20 23:45: Sodium 109 L* 12/16/20 02:48: POC Glucose 169 H 12/16/20 04:05: Sodium 111 L*, Potassium 3.5, Chloride 73 L*, Carbon Dioxide 26.0, Anion Gap 12, BUN 8, Creatinine 0.66 L, Estim Creat Clear Calc 113.07, Est GFR (MDRD) Af Amer 158, Est GFR (MDRD) Non-Af 130, BUN/Creatinine Ratio 12.2, Glucose 125 H, Calcium 8.2 L, Total Bilirubin 1.10 H, AST 102 H, ALT 71 H, Alkaline Phosphatase 183 H, Total Protein 7.5, Albumin 3.9, Globulin 3.6, Albumin/Globulin Ratio 1.1 12/16/20 04:05: WBC 10.7, RBC 4.49 L, Hgb 12.6 L, Hct 35.3 L, MCV 78.6 L, MCH 28.1, MCHC 35.7, RDW Std Deviation 40.4, RDW Coeff of [place] 14.1, Plt Count 292, MPV 9.7, Immature Gran % (Auto) 0.700, Neut % (Auto) 86.9 H, Lymph % (Auto) 4.7 L, [place] % (Auto) 7.4, Eos % (Auto) 0.1, Baso % (Auto) 0.2, Absolute Neuts (auto) 9.3 H, Absolute Lymphs (auto) 0.50 L, Nucleated RBC % 0 ABG Data ABG results: ABG 12/16/20 01:23 Specimen Type ART Sample Site L Radial pH 7.45 Bicarbonate Actual 18.6 L Total CO2 19 Base Excess -6 L O2 Saturation 97 O2 % 21 ABG pCO2 27.1 L ABG pO2 83 Pasha Test N/A O2 Delivery Device Room Air Radiology Impression Brain CT 12/15/20 14:06 IMPRESSION: Chronic involutional changes of the brain. Bilateral maxillary and ethmoid sinusitis. There is a nondisplaced transverse fracture at the base of the odontoid as seen on limited assessment of the upper cervical spine Electronically Signed: Michelet Alvarez MD at 15:03 EDT , Service support , Chest X-Ray 12/16/20 00:56 IMPRESSION: No acute cardiopulmonary disease. Electronically Signed: Yoanna Flores MD at 2:14 EDT , Service support , Brain CT 12/16/20 01:22 IMPRESSION: No acute intracranial process seen. Bilateral maxillary sinusitis. Fractures of the C1 and C2, please see accompanying CT of the cervical spine report. Electronically Signed: Yoanna Flores MD at 2:49 EDT , Service support , Cervical Spine CT 12/16/20 01:26 IMPRESSION: Fractures of the base of the odontoid and spinous process of the odontoid. Fracture involving the anterior arch of C1 and posterolateral elements of C1. Electronically Signed: Yoanna Flores MD at 2:54 EDT , Service support , ADDENDUM: 12/16/20 0321 IMPRESSION: Fractures of the base of the odontoid and spinous process of the odontoid. Fracture involving the anterior arch of C1 and posterolateral elements of C1. N.B. : The above Results were Read Back by MD paul Valadez , AA, and understanding confirmed on 12/16/2020 03:14:28 (ET). Electronically Signed: Yoanna Flores MD at 2:54 EDT , Service support , ADDENDUM: 12/16/20 0348 IMPRESSION: Fractures of the base of the odontoid and spinous process of the odontoid. Fracture involving the anterior arch of C1 and posterolateral elements of C1. N.B. : The above Results were Read Back by Yoanna Flores MD to BOYD Bhatia, and understanding confirmed on 12/16/2020 03:41:37 (ET). Electronically Signed: Yoanna Flores MD at 2:54 EDT , Service support , Charges/Coding Procedures Hospitalists Procedures: 96986 Critial Care 1st Hr Multi [facility] Codes Hospitalists' Procedures Procedures: 59392 Critial Care Addl 30 Min
--- NOTE | 2020-12-16 06:45 | NURSING ---
0645- Spoke with patient's Susan in regards to patient's code status. No code status was on file for patient on admission. I spoke with Susan that the patient's mental status and respiratory status was at a decline and updated her about the events overnight. She stated that she absolutely wanted everything done. I clarified with her about the life support, ventilator, CPR, and ACLS meds. She stated yes she wants us to do everything for her . Dr. Rodriguez was updated on this conversation and is placing an order for patient to be FULL CODE.
--- NOTE | 2020-12-16 06:48 | PN.RENAL_ITS ---
Subjective Subjective The patient is a 65-year-old man with past history of hypertension, vertebral compression fractures, and recent cervical fracture after fall approximately 2 weeks ago. The patient presented to the emergency department yesterday with hallucination and serum sodium of 108 mmol/L. Baseline serum sodium is unknown as there is no prior laboratory data in [facility]. Work-up thus far revealed TSH and cortisol level. Urine sodium was 52 and urine osmolality was 280. The patient was initially answering questions appropriately on admission with stable hemodynamics. There was no headaches, nausea, or vomiting. He also has some risk factors for osmotic demyelination such as low presenting serum sodium as well as hypokalemia. Therefore, we elected to let the serum sodium rise on his own with fluid restriction and low-dose furosemide. However, the patient has become hypotensive this morning with further alteration in mental status change. The patient may need to be intubated per my discussion with Dr. Rodriguez. Objective Data Objective Data Vital Signs: Vital Signs Temp Pulse Resp BP Pulse Ox 97.5 F L 107 H 20 H 94/75 93 12/16/20 04:00 12/16/20 06:00 12/16/20 06:00 12/16/20 06:00 12/16/20 06:00 Oxygen Delivery Method Room Air Weight: 85.9 kg Body Mass Index (BMI) 28.3 Intake & Output: Intake and Output for Last 24 Hours 12/14/20 12/15/20 12/16/20 23:59 23:59 23:59 Intake Total 435 / 435 500 / 500 Output Total 200 / 450 2049 / 2049 Balance 235 / -15 -1550 / -1550 Lab / Micro Data Result Diagrams: 12/16/20 04:05 12/16/20 04:05 Labs: Laboratory Results - last 24 hr 12/15/20 14:30: WBC 5.7, RBC 4.46 L, Hgb 12.4 L, Hct 34.8 L, MCV 78.0 L, MCH 27.8, MCHC 35.6, RDW Std Deviation 40.1, RDW Coeff of Mej[place] 14.3, Plt Count 280, MPV 9.6, Immature Gran % (Auto) 1.000 H, Neut % (Auto) 71.4 H, Lymph % (Auto) 12.4 L, [place] % (Auto) 14.3 H, Eos % (Auto) 0.7, Baso % (Auto) 0.2, Absolute Neuts (auto) 4.1, Absolute Lymphs (auto) 0.71 L, Nucleated RBC % 0 12/15/20 14:30: Sodium 108 L*, Potassium 3.4 L, Chloride 71 L*, Carbon Dioxide 25.0, Anion Gap 12, BUN 8, Creatinine 0.56 L, Estim Creat Clear Calc 133.26, Est GFR (MDRD) Af Amer 189, Est GFR (MDRD) Non-Af 156, BUN/Creatinine Ratio 14.3, Glucose 95, Calcium 8.2 L, Total Bilirubin 1.00, AST 121 H, ALT 70 H, Alkaline Phosphatase 164 H, Troponin I High Sens 22.8, Total Protein 7.1, Albumin 3.5, Globulin 3.6, Albumin/Globulin Ratio 1.0 12/15/20 14:30: Ethyl Alcohol 5.0 12/15/20 14:30: TSH 1.67 12/15/20 14:30: Cortisol 20.50 12/15/20 15:15: Urine Color Yellow, Urine Clarity Clear, Urine pH 8.0, Ur Specific [place] 1.015, Urine Protein 15 H, Urine Glucose (UA) Normal, Urine Ketones 5 H, Urine Occult Blood Negative, Urine Nitrite Negative, Urine Bilirubin Negative, Urine Urobilinogen Normal, Ur Leukocyte Esterase Negative, Urine RBC 0 SEEN, Urine WBC 0 SEEN, Ur Squamous Epith Cells 0 SEEN, Urine Bacteria 0 SEEN, Urine Mucus 0 SEEN 12/15/20 15:15: Urine Opiates Screen NEGATIVE, Urine Methadone Screen NEGATIVE, Ur Barbiturates Screen NEGATIVE, Ur Phencyclidine Scrn NEGATIVE, Ur Amphetamines Screen NEGATIVE, U Methamphetamin-MDMA NEGATIVE, U Benzodiazepines Scrn NEGATIVE, Urine Cocaine Screen NEGATIVE, U Cannabinoids Screen NEGATIVE, Ur Drug Screen Comment 12/15/20 17:30: Serum Osmolality 221 L 12/15/20 18:10: Urine Osmolality 280, Ur Random Sodium 52 12/15/20 19:00: Sodium 108 L*, Potassium 3.2 L, Chloride 74 L*, Carbon Dioxide 24.0, Anion Gap 10, BUN 8, Creatinine 0.50 L, Estim Creat Clear Calc 149.26, Est GFR (MDRD) Af Amer 213, Est GFR (MDRD) Non-Af 176, BUN/Creatinine Ratio 15.8, Glucose 99, Calcium 8.3 L, Phosphorus 2.9, Magnesium 1.6 12/15/20 23:45: Sodium 109 L* 12/16/20 02:48: POC Glucose 169 H 12/16/20 04:05: Sodium 111 L*, Potassium 3.5, Chloride 73 L*, Carbon Dioxide 26.0, Anion Gap 12, BUN 8, Creatinine 0.66 L, Estim Creat Clear Calc 113.07, Est GFR (MDRD) Af Amer 158, Est GFR (MDRD) Non-Af 130, BUN/Creatinine Ratio 12.2, Glucose 125 H, Calcium 8.2 L, Total Bilirubin 1.10 H, AST 102 H, ALT 71 H, Alk ankit Phosphatase 183 H, Total Protein 7.5, Albumin 3.9, Globulin 3.6, Albumin/Globulin Ratio 1.1 12/16/20 04:05: WBC 10.7, RBC 4.49 L, Hgb 12.6 L, Hct 35.3 L, MCV 78.6 L, MCH 28.1, MCHC 35.7, RDW Std Deviation 40.4, RDW Coeff of [place] 14.1, Plt Count 292, MPV 9.7, Immature Gran % (Auto) 0.700, Neut % (Auto) 86.9 H, Lymph % (Auto) 4.7 L, [place] % (Auto) 7.4, Eos % (Auto) 0.1, Baso % (Auto) 0.2, Absolute Neuts (auto) 9.3 H, Absolute Lymphs (auto) 0.50 L, Nucleated RBC % 0 ABG Data ABG results: ABG 12/16/20 01:23 Specimen Type ART Sample Site L Radial pH 7.45 Bicarbonate Actual 18.6 L Total CO2 19 Base Excess -6 L O2 Saturation 97 O2 % 21 ABG pCO2 27.1 L ABG pO2 83 Pasha Test N/A O2 Delivery Device Room Air Radiography Diagnostic Testing: Radiology Impression Brain CT 12/15/20 14:06 IMPRESSION: Chronic involutional changes of the brain. Bilateral maxillary and ethmoid sinusitis. There is a nondisplaced transverse fracture at the base of the odontoid as seen on limited assessment of the upper cervical spine Electronically Signed: Michelet Alvarez MD at 15:03 EDT , Service support , Chest X-Ray 12/16/20 00:56 IMPRESSION: No acute cardiopulmonary disease. Electronically Signed: Yoanna Flores MD at 2:14 EDT , Service support , Brain CT 12/16/20 01:22 IMPRESSION: No acute intracranial process seen. Bilateral maxillary sinusitis. Fractures of the C1 and C2, please see accompanying CT of the cervical spine report. Electronically Signed: Yoanna Flores MD at 2:49 EDT , Service support , Cervical Spine CT 12/16/20 01:26 IMPRESSION: Fractures of the base of the odontoid and spinous process of the odontoid. Fracture involving the anterior arch of C1 and posterolateral elements of C1. Electronically Signed: Yoanna Flores MD at 2:54 EDT , Service support , ADDENDUM: 12/16/20 0321 IMPRESSION: Fractures of the base of the odontoid and spinous process of the odontoid. Fracture involving the anterior arch of C1 and posterolateral elements of C1. N.B. : The above Results were Read Back by Yoanna Flores MD to , AA, and understanding confirmed on 12/16/2020 03:14:28 (ET). Electronically Signed: Yoanna Flores MD at 2:54 EDT , Service support , ADDENDUM: 12/16/20 0348 IMPRESSION: Fractures of the base of the odontoid and spinous process of the odontoid. Fracture involving the anterior arch of C1 and posterolateral elements of C1. N.B. : The above Results were Read Back by Yoanna Flores MD to BOYD Bhatia, and understanding confirmed on 12/16/2020 03:41:37 (ET). Electronically Signed: Yoanna Flores MD at 2:54 EDT , Service support , Assessment & Plan Assessment/Plan (1) Hyponatremia: PLAN: The patient has normal TSH and cortisol level. Urine studies r evealed urine sodium of 52 and urine osmolality of 280. The patient does not appear to be volume overloaded or in heart failure. He does not appear to be volume depleted either. 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 We will try to obtain recent serum sodium from the hospital in [place] where he was initially treated for cervical fracture. Another possible cause of hyponatremia would be from chronic use of hydrochlorothiazide which has been stopped. Given the acute change in mental status this morning and hypotension, I agree with starting hypertonic saline. We will have to be careful with overcorrection in this patient because of some risk factor for osmotic demyelination (low presenting serum sodium and hypokalemia). I would recommend increasing sodium no more than 8 mmol/L/day. While the patient is on hypertonic saline, we should check serum sodium frequently (every 2 hours) to monitor for overly rapid correction. (2) Hypokalemia: PLAN: Prior hypokalemia may be secondary to diuretic which the patient was taking for hypertension prior to admission. Magnesium level was acceptable at 1.6 mg/dL. Potassium has been corrected. However, potassium correction could also contribute to increasing serum sodium. Therefore, we will monitor serum sodium closely as mentioned above. (3) HTN (hypertension): PLAN: BP was initially high. The patient has been appropriately taken off of hydrochlorothiazide due to hyponatremia. He is on metoprolol. However, blood pressures morning has declined. The patient's blood pressure will be monitored again the ICU closely.
[2020-12-16] MEDS: Sodium Chloride 3% 500 ML 50 ML IV (06:49)
--- NOTE | 2020-12-16 07:24 | NURSING ---
0720 Dr. Rodriguez present pt room, pt w/snoring respers. awaiting meds from pharmacy 0725 HR 126 R 20 BP 179/81 SpO2 91 RA 0728 versed 4mg IV push, 20mg Etomidate IV push per Dr Medina order pt being bagged per RT 0731 80mg propofol IV push per Dr. Rodriguez order HR 110, BP 200/151 0733 50mg Propofol IV push per order 0735 #7.5 OET 23cm center lip with good color change. 0736 PEEP valve added. SpO2 100 w/bagging 0738 fentanyl 100mcq/hr begun 0745 OG placed, to LIS draining green.
[2020-12-16] MEDS: Etomidate 20 MG/10 ML Vial IV (07:28)
[2020-12-16] MEDS: Propofol 200 MG/20 ML Vial 80 MG IV BOLUS (07:32)
[2020-12-16] MEDS: Propofol 200 MG/20 ML Vial 20 MG IV BOLUS (07:33)
[2020-12-16] MEDS: Propofol 200 MG/20 ML Vial 50 MG IV BOLUS ×2 (07:35→07:43)
[2020-12-16 07:39] LABS: Sodium Level 116 mmol/L (136-145)
--- NOTE | 2020-12-16 07:46 | RAD_ITS ---
HISTORY: ETT , OG tube placement. TECHNIQUE: XR Chest 1 View. EXAM TIME: 2020-12-16 07:44. # of images incl. paperwork: 2. COMPARISON:00:56. FINDINGS: LINES/DEVICES: Endotracheal tube tip at the level of the clavicular heads. Orogastric tube tip in the left upper quadrant in the region of the stomach. CARDIOMEDIASTINAL BORDERS: Stable with midline sternotomy and valve prosthesis. LUNGS: Low lung volumes with mild left basilar opacity. PLEURA: Trace left pleural effusion. RAD/Chest 1 View (Portable) IMPRESSION: Trace left pleural effusion with left basilar atelectasis or pneumonia. Endotracheal and orogastric tubes as above. at 0832 Reported and signed by: Isabella Del Valle MD Electronically Signed: Isabella Del Valle MD at 8:31 EDT Tel , Service support ,
[2020-12-16] MEDS: Phenylephrine 1 MG/10 ML SYRINGE 0.5 MG IV ×3 (07:51→08:10)
[2020-12-16] MEDS: 0.9% Saline Lock 10 ML Syringe IV ×14 (08:00→18:08)
[2020-12-16] MEDS: 0.9% Normal Saline 1,000 ML 125 ML IV (08:15)
[2020-12-16] MEDS: Midazolam 2 MG/2 ML Syringe 4 MG IV (08:24)
[2020-12-16 09:01] LABS: Allen Test Positive; Base Excess -6 mmol/L (-2 to +2); Blood Gas Specimen Type ART; FI02 40; Mode AC; O2 Delivery Device Adult Vent; PEEP 5; PO2 165 mmHG (75-100); RR 14; SITE L Radial; SO2 100 % (95-99); Total Carbon Dioxide 19 mmol/L; Vt 450; pCO2 27.7 mmHg (35-45); pH 7.42 (7.35-7.45)
[2020-12-16 09:45] LABS: Anion Gap 12 (5-15); BUN 10 mg/dL (7-18); BUN/Creat Ratio 13.5 RATIO (10-20); Calcium,Total 7.2 mg/dL (8.5-10.1); Chloride 82 mmol/L (98-107); Creatinine, Serum 0.74 mg/dL (0.70-1.30); EST Glomerular Filtration Rate 113 mL/min (>60); Est Glom Filt Rate - Afr Amer 137 mL/min (>60); Estimated Creatinine Clearance 100.85 ml/min; Glucose 123 mg/dL (74-106); Potassium 4.2 mmol/L (3.5-5.1); Sodium Level 115 mmol/L (136-145)
--- NOTE | 2020-12-16 10:15 | PCM.CONS.R ---
Assessment & Plan Assessment/Plan (1) Hyponatremia: PLAN: The patient has normal TSH and cortisol level. Urine studies revealed urine sodium of 52 and urine osmolality of 280. The patient does not appear to be volume overloaded or in heart failure. He does not appear to be volume depleted either. 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 Na 115 start D5W 75 ml/hr.DC IV NS. We will have to be careful with overcorrection in this patient because of some risk factor for osmotic demyelination (low presenting serum sodium and hypokalemia). I would recommend increasing sodium no more than 8 mmol/L/day. We should check serum sodium frequently (every 4 hours) to monitor for overly rapid correction. (2) Hypokalemia: PLAN: Prior hypokalemia may be secondary to diuretic which the patient was taking for hypertension prior to admission. Magnesium level was acceptable at 1.6 mg/dL. Potassium has been corrected. However, potassium correction could also contribute to increasing serum sodium. Therefore, we will monitor serum sodium closely as mentioned above. (3) HTN (hypertension): PLAN: BP was initially high. The patient has been appropriately taken off of hydrochlorothiazide due to hyponatremia. He is on metoprolol. However, blood pressures morning has declined. The patient's blood pressure will be monitored again the ICU closely. HPI Consult Data Date of Consult: 12/16/20 HPI Narrative HPI Narrative: SOFÍA KOEHLER, is a 65 M who has history of hyponatremia baseline 120-121 due to low osmolar secretion due to alcohol intake presented to the emergency department on December 15 with altered mentation and visual hallucinations with Na 108. antwon recently fell 2 weeks ago while in [place] and sustained cervical and thoracic spine injuries. He was admitted to a local hospital for 3 days and followed up with a local orthopedic production control specialist 48 hours ago. It does appear that the patient was placed on tizanidine 5 to 6 days ago. The patient does have an apparent drinking history. However, the exact amount of his daily consumption is unknown.he was given hypertonic saline Na 111 with peaked 116 and then became more encephalopathic and hypotensive. He received multiple bolus of normal saline overnight now intubated running NS 125ml/hr [facility] Medical History (Updated 12/16/20 @ 07:[address] Tarik Olvera MD) Burst fracture of lumbar vertebra C1 cervical fracture HTN (hypertension) Lumbar compression fracture Non-smoker Thoracic compression fracture Home Medications metoprolol tartrate 50 mg PO BID 12/19/17 [History Last Taken 12/15/20] acetaminophen [Tylenol Extra Strength] 500 mg PO Q6H PRN 12/15/20 [History Last Taken 12/14/20] hydrochlorothiazide 25 mg PO DAILY 12/15/20 [History Last Taken 12/15/20] omega-3 fatty acids [Fish Oil] 1,000 mg PO DAILY 12/15/20 [History Last Taken 12/14/20] omeprazole 20 mg PO QHS 12/15/20 [History Last Taken 12/14/20] tizanidine 4 mg PO QHS 12/15/20 [History Last Taken 12/12/20] Allergy/AdvReac Type Severity Reaction Status Date / Time Penicillins Allergy Unknown Verified 12/15/20 13:40 ciprofloxacin [From Cipro] AdvReac Nausea/Vom/ Verified 12/15/20 13:40 Diarrhea Surgical History (Updated 12/15/20 @ 13:46 by Glenys Gee) Mitral valve replaced Social History Smoking Status: Never smoker ROS Review of Systems ROS Unobtainable: due to endotracheal tube and due to mental status Constitutional Constitutional: Reports systems reviewed and no addt'l complaints, except as documented; Denies anorexia, body ache(s), change in weight, chills, fatigue, fever(s), night sweats or weakness Eyes Eyes: Denies acute decrease in peripheral vision, blurry vision, change in vision, discharge from eye(s), double vision, eye pain or loss of vision ENT HEENT: Reports none; Denies abnormal hearing, dysphagia, ear pain, lip swelling, loss taste/smell, neck pain, otalgia or sore throat Cardiovascular Cardiovascular: Reports none; Denies abdominal pain, chest pain, chest pain with activity, claudication, dyspnea on exertion, edema, leg edema, lightheadedness, palpitations, rapid heart rate or syncope Respiratory/Chest Respiratory/Chest: Reports none; Denies change in mental status, cough, dry cough, dyspnea, hemoptysis, shortness of breath at rest or shortness of breath with exertion Gastrointestinal Gastrointestinal: Reports none; Denies abdominal pain, change in stool character, constipation, diarrhea, hematemesis, hematochezia, melena, nausea, rectal bleeding or vomiting Genitourinary Genitourinary: Reports none; Denies abdominal discomfort, anuria, dysuria, genital pain, hematuria, polyuria, urinary frequency, urinary hesitancy, urinary incontinence or urinary urgency Musculoskeletal Musculoskeletal: Reports none; Denies arthralgias, back pain, difficulty walking, extremity pain, joint pain, joint stiffness, joint swelling, muscle weakness, myalgias or neck pain Integumentary Integumentary: Reports none; Denies rash Neurologic Neurologic: Reports none and other Details: Patient's stated the patient was having hallucinations at home, patient could not tell me exactly what these were. ; Denies abnormal gait, abnormal speech, confusion, dizziness, focal weakness, frequent falls, headache(s), loss of vision, numbness, other visual disturbances, paresthesias, radicular pain, syncope, tingling, vertigo or weakness Psychiatric Psychiatric: Reports systems reviewed and no addt'l complaints, except as documented and none; Denies anxiety, behavioral changes, cognitive impairment, confusion, depression, difficulty concentrating, hallucinations, irritability, mood swings, suicidal ideation, tactile hallucinations or visual hallucinations Endocrine Endocrinology: Denies none, change in body appearance, cold intolerance, excessive sweating, fatigue, heat intolerance, polydipsia or polyuria Hematologic/Lymphatic Hematologic/Lymphatic: Denies none, anemia, easy bleeding, easy bruising or lymphadenopathy Allergic/Immunologic Allergic/Immunologic: Denies as per HPI, none, lip swelling, rhinitis, throat swelling, tongue swelling, hives, urticaria, eczemia or asthma Lab / Micro Data Result Diagrams: 12/16/20 04:05 12/16/20 09:00 Labs: Laboratory Results - last 24 hr 12/15/20 14:30: WBC 5.7, RBC 4.46 L, Hgb 12.4 L, Hct 34.8 L, MCV 78.0 L, MCH 27.8, MCHC 35.6, RDW Std Deviation 40.1, RDW Coeff of Mejia 14.3, Plt Count 280, MPV 9.6, Immature Gran % (Auto) 1.000 H, Neut % (Auto) 71.4 H, Lymph % (Auto) 12.4 L, [place] % (Auto) 14.3 H, Eos % (Auto) 0.7, Baso % (Auto) 0.2, Absolute Neuts (auto) 4.1, Absolute Lymphs (auto) 0.71 L, Nucleated RBC % 0 12/15/20 14:30: Sodium 108 L*, Potassium 3.4 L, Chloride 71 L*, Carbon Dioxide 25.0, Anion Gap 12, BUN 8, Creatinine 0.56 L, Estim Creat Clear Calc 133.26, Est GFR (MDRD) Af Amer 189, Est GFR (MDRD) Non-Af 156, BUN/Creatinine Ratio 14.3, Glucose 95, Calcium 8.2 L, Total Bilirubin 1.00, AST 121 H, ALT 70 H, Alkaline Phosphatase 164 H, Troponin I High Sens 22.8, Total Protein 7.1, Albumin 3.5, Globulin 3.6, Albumin/Globulin Ratio 1.0 12/15/20 14:30: Ethyl Alcohol 5.0 12/15/20 14:30: TSH 1.67 12/15/20 14:30: Cortisol 20.50 12/15/20 15:15: Urine Color Yellow, Urine Clarity Clear, Urine pH 8.0, Ur Specific [place] 1.015, Urine Protein 15 H, Urine Glucose (UA) Normal, Urine Ketones 5 H, Urine Occult Blood Negative, Urine Nitrite Negative, Urine Bilirubin Negative, Urine Urobilinogen Normal, Ur Leukocyte Esterase Negative, Urine RBC 0 SEEN, Urine WBC 0 SEEN, Ur Squamous Epith Cells 0 SEEN, Urine Bacteria 0 SEEN, Urine Mucus 0 SEEN 12/15/20 15:15: Urine Opiates Screen NEGATIVE, Urine Methadone Screen NEGATIVE, Ur Barbiturates Screen NEGATIVE, Ur Phencyclidine Scrn NEGATIVE, Ur Amphetamines Screen NEGATIVE, U Methamphetamin-MDMA NEGATIVE, U Benzodiazepines Scrn NEGATIVE, Urine Cocaine Screen NEGATIVE, U Cannabinoids Screen NEGATIVE, Ur Drug Screen Comment 12/15/20 17:30: Serum Osmolality 221 L 12/15/20 18:10: Urine Osmolality 280, Ur Random Sodium 52 12/15/20 19:00: Sodium 108 L*, Potassium 3.2 L, Chloride 74 L*, Carbon Dioxide 24.0, Anion Gap 10, BUN 8, Creatinine 0.50 L, Estim Creat Clear Calc 149.26, Est GFR (MDRD) Af Amer 213, Est GFR (MDRD) Non-Af 176, BUN/Creatinine Ratio 15.8, Glucose 99, Calcium 8.3 L, Phosphorus 2.9, Magnesium 1.6 12/15/20 23:45: Sodium 109 L* 12/16/20 02:48: POC Glucose 169 H 12/16/20 04:05: Sodium 111 L*, Potassium 3.5, Chloride 73 L*, Carbon Dioxide 26.0, Anion Gap 12, BUN 8, Creatinine 0.66 L, Estim Creat Clear Calc 113.07, Est GFR (MDRD) Af Amer 158, Est GFR (MDRD) Non-Af 130, BUN/Creatinine Ratio 12.2, Glucose 125 H, Calcium 8.2 L, Total Bilirubin 1.10 H, AST 102 H, ALT 71 H, Alkaline Phosphatase 183 H, Total Protein 7.5, Albumin 3.9, Globulin 3.6, Albumin/Globulin Ratio 1.1 12/16/20 04:05: WBC 10.7, RBC 4.49 L, Hgb 12.6 L, Hct 35.3 L, MCV 78.6 L, MCH 28.1, MCHC 35.7, RDW Std Deviation 40.4, RDW Coeff of Mejia 14.1, Plt Count 292, MPV 9.7, Immature Gran % (Auto) 0.700, Neut % (Auto) 86.9 H, Lymph % (Auto) 4.7 L, [place] % (Auto) 7.4, Eos % (Auto) 0.1, Baso % (Auto) 0.2, Absolute Neuts (auto) 9.3 H, Absolute Lymphs (auto) 0.50 L, Nucleated RBC % 0 12/16/20 07:20: Sodium 116 L* 12/16/20 09:00: Sodium Cancelled 12/16/20 09:00: Sodium 115 L*, Potassium 4.2, Chloride 82 L, Carbon Dioxide 21.0, Anion Gap 12, BUN 10, Creatinine 0.74, Estim Creat Clear Calc 100.85, Est GFR (MDRD) Af Amer 137, Est GFR (MDRD) Non-Af 113, BUN/Creatinine Ratio 13.5, Glucose 123 H, Calcium 7.2 L ABG Data ABG results: ABG 12/16/20 12/16/20 01:23 08:53 Specimen Type ART ART Sample Site L Radial L Radial pH 7.45 7.42 Bicarbonate Actual 18.6 L 18.0 L Total CO2 19 19 Base Excess -6 L -6 L O2 Saturation 97 100 H O2 % 21 40 ABG pCO2 27.1 L 27.7 L ABG pO2 83 165 H Pasha Test N/A Positive Respiration Rate 14 O2 Delivery Device Room Air Adult Vent Vent Mode AC Tidal Volume 450 POC PEEP [address] 12/15/20 14:06 IMPRESSION: Chronic involutional changes of the brain. Bilateral maxillary and ethmoid sinusitis. There is a nondisplaced transverse fracture at the base of the odontoid as seen on limited assessment of the upper cervical spine Electronically Signed: Michelet Alvarez MD at 15:03 EDT , Service support , Chest X-Ray 12/16/20 00:56 IMPRESSION: No acute cardiopulmonary disease. Electronically Signed: Yoanna Flores MD at 2:14 EDT , Service support , Brain CT 12/16/20 01:22 IMPRESSION: No acute intracranial process seen. Bilateral maxillary sinusitis. Fractures of the C1 and C2, please see accompanying CT of the cervical spine report. Electronically Signed: Yoanna Flores MD at 2:49 EDT , Service support , Cervical Spine CT 12/16/20 01:26 IMPRESSION: Fractures of the base of the odontoid and spinous process of the odontoid. Fracture involving the anterior arch of C1 and posterolateral elements of C1. Electronically Signed: Yoanna Flores MD at 2:54 EDT , Service support , ADDENDUM: 12/16/20 0321 IMPRESSION: Fractures of the base of the odontoid and spinous process of the odontoid. Fracture involving the anterior arch of C1 and posterolateral elements of C1. N.B. : The above Results were Read Back by Yoanna Flores MD to , AA, and understanding confirmed on 12/16/2020 03:14:28 (ET). Electronically Signed: Yoanna Flores MD at 2:54 EDT , Service support , ADDENDUM: 12/16/20 0348 IMPRESSION: Fractures of the base of the odontoid and spinous process of the odontoid. Fracture involving the anterior arch of C1 and posterolateral elements of C1. N.B. : The above Results were Read Back by Yoanna Flores MD to BOYD Bhatia, and understanding confirmed on 12/16/2020 03:41:37 (ET). Electronically Signed: Yoanna Flores MD at 2:54 EDT , Service support , Chest X-Ray 12/16/20 07:46 IMPRESSION: Trace left pleural effusion with left basilar atelectasis or pneumonia. Endotracheal and orogastric tubes as above. at 0832 Reported and signed by: Isabella Del Valle MD Electronically Signed: Isabella Del Valle MD at 8:31 EDT Tel , Service support ,
--- NOTE | 2020-12-16 11:10 | RAD_ITS ---
STUDY: X-RAY CHEST REASON FOR EXAM: Male, 65 years old. PICC placement TECHNIQUE: Single AP portable view of the chest. COMPARISON: Comparison is made with prior examination done earlier today. FINDINGS: A right-sided PICC line catheter has been placed. The tip is at the junction of the superior vena cava and right atrium. The remainder of the examination is unchanged. RAD/CXR for Line Placement IMPRESSION: Status post right PICC line placement. The tip is at the junction of the superior vena cava and right atrium. Electronically Signed: Michelet Alvarez MD at 11:32 EDT , Service support ,
[2020-12-16 12:21] LABS: Sodium Level 113 mmol/L (136-145)
[2020-12-16] MEDS: Heparin Injection (Vial) 5,000 UNIT/ML VIAL 5000 UNIT SC ×2 (12:27→21:27)
--- NOTE | 2020-12-16 14:15 | CASEMGMT ---
RN CM Face to Face with patient's , Susan, for initial transition planning/care coordination assessment. Patient is currently intubated with Fio2 at 21%.RN CM introduced self and role at [facility]. Susan willing to participate in assessment and is able to answer all questions appropriately. Care providers, pharmacy, and demographics verified. Susan wishes for patient to discharge home will monitor for needs as patient progress with course of treatment and therapy. Susan states she has no further needs or concerns at this time. CM to follow for discharge planning needs that may arise. PCP: Frannie Specialists: none [facility]: yes Living Will/HPOA: none LNOK: Living Arrangements: Patient lives with in a 2 story home with bed and bath on first floor. 2 steps and railing to enter the home. Patient was independent at home. Transportation: Self/ DME/HHC: states they have shower chair at home. No previous HHC or SNF. Per up until 2 months ago patient was drinking 10-20 beers per week but has cut back and now drinking about 1 beer daily. denies smoking and other drug use. Disposition Plan: Patient to discharge home with family support and follow-up plans in place. Will monitor for needs at discharge. Jodi MOULTON, RN, CM
[2020-12-16] MEDS: TITRATION PARAMETER CHANGE 1 EACH IV ×2 (14:55→20:32)
--- NOTE | 2020-12-16 15:56 | CHAPLAIN ---
Type of Pastoral Visit ___ Initial Visit ___ Follow-up Visit ___ On-call Visit _x__ General Patient Visit ___ Spiritual Assessment ___ Family Conference ___ Bereavement ___ Rapid Response ___ Code Blue ___ Other (describe below) Pastoral Care Referral From ___ Patient ___ Family ___ Nurse ___ Physician ___ Lean Leader ___ Pilates Coordinator _x__ Other (describe below) Sacrament/Intervention ___ Active listening ___ Anointing ___ Taoist ___ Bereavement ___ Communion ___ [place] exploration ___ ___ Life review ___ Prayer ___ Reconciliation ___ Sacrament of Sick __x_ Supportive presence ___ Wedding ___ Other (describe below) Pastoral Comments patient was intubated this morning; unaware of who made referral to spiritual care; RN asks for availability of this policewoman for when spouse comes to hospital to see the patient; due to pt condition the RN believes spouse may need extra support; at the first visit policewoman enters room and offers brief silent prayer for patient; on second visit discovered no charge and that spouse had been in to see pt already and has left hospital
[2020-12-16 16:31] LABS: Sodium Level 114 mmol/L (136-145)
[2020-12-16] MEDS: Propofol 10MG/Ml 1,000 MG/100 ML Bottle 5.2 MG CONT INF (18:00)
--- NOTE | 2020-12-16 18:20 | NURSING ---
Precedex titration 1415 1.3mcq/kg/hr RASS -1 1430 1.3 RASS-1 1500 1.2 RASS-1 decreased for bradycardia 1515 1.2 RASS -1 1530 1.2 RASS -1 1545 1.2 RASS -1 1600 1.2 RASS -1 1645 1.1 RASS -1 decreased for bradycardia 1700 1.0 RASS -1 decreased for bradycardia 1745 0.9 RASS -1 decreased for bradycardia 1800 precedex DC
--- NOTE | 2020-12-16 18:23 | PCM.PN.HOSP ---
Subjective Subjective Patient was seen and examined today, earlier this morning he had to be intubated for airway protection, at the time of my examination, he is sedated and on the ventilator. Patient's sodium this afternoon was 114. Objective Data Objective Data Vital Signs: Vital Signs Temp Pulse Resp BP Pulse Ox 98.0 F 56 L 15 131/68 H 97 12/16/20 12:00 12/16/20 17:32 12/16/20 17:32 12/16/20 16:30 12/16/20 17:32 Oxygen Delivery Method Mechanical Ventilator Weight: 85.9 kg Body Mass Index (BMI) 28.3 Intake & Output: Intake and Output for Last 24 Hours 12/14/20 12/15/20 12/16/20 23:59 23:59 23:59 Intake Total 435 / 435 1456.29 / 1456.29 Output Total 200 / 450 3425 / 3425 Balance 235 / -15 -1967.71 / -1967.71 Lab / Micro Data Result Diagrams: 12/16/20 04:05 12/16/20 16:00 Labs: Laboratory Results - last 24 hr 12/15/20 18:10: Urine Osmolality 280, Ur Random Sodium 52 12/15/20 19:00: Sodium 108 L*, Potassium 3.2 L, Chloride 74 L*, Carbon Dioxide 24.0, Anion Gap 10, BUN 8, Creatinine 0.50 L, Estim Creat Clear Calc 149.26, Est GFR (MDRD) Af Amer 213, Est GFR (MDRD) Non-Af 176, BUN/Creatinine Ratio 15.8, Glucose 99, Calcium 8.3 L, Phosphorus 2.9, Magnesium 1.6 12/15/20 23:45: Sodium 109 L* 12/16/20 02:48: POC Glucose 169 H 12/16/20 04:05: Sodium 111 L*, Potassium 3.5, Chloride 73 L*, Carbon Dioxide 26.0, Anion Gap 12, BUN 8, Creatinine 0.66 L, Estim Creat Clear Calc 113.07, Est GFR (MDRD) Af Amer 158, Est GFR (MDRD) Non-Af 130, BUN/Creatinine Ratio 12.2, Glucose 125 H, Calcium 8.2 L, Total Bilirubin 1.10 H, AST 102 H, ALT 71 H, Alkaline Phosphatase 183 H, Total Protein 7.5, Albumin 3.9, Globulin 3.6, Albumin/Globulin Ratio 1.1 12/16/20 04:05: WBC 10.7, RBC 4.49 L, Hgb 12.6 L, Hct 35.3 L, MCV 78.6 L, MCH 28.1, MCHC 35.7, RDW Std Deviation 40.4, RDW Coeff of Mejia 14.1, Plt Count 292, MPV 9.7, Immature Gran % (Auto) 0.700, Neut % (Auto) 86.9 H, Lymph % (Auto) 4.7 L, [place] % (Auto) 7.4, Eos % (Auto) 0.1, Baso % (Auto) 0.2, Absolute Neuts (auto) 9.3 H, Absolute Lymphs (auto) 0.50 L, Nucleated RBC % 0 12/16/20 07:20: Sodium 116 L* 12/16/20 09:00: Sodium Cancelled 12/16/20 09:00: Sodium 115 L*, Potassium 4.2, Chloride 82 L, Carbon Dioxide 21.0, Anion Gap 12, BUN 10, Creatinine 0.74, Estim Creat Clear Calc 100.85, Est GFR (MDRD) Af Amer 137, Est GFR (MDRD) Non-Af 113, BUN/Creatinine Ratio 13.5, Glucose 123 H, Calcium 7.2 L 12/16/20 11:59: Sodium 113 L* 12/16/20 16:00: Sodium 114 L* Micro: Microbiology 12/16/20 07:50 Sputum, Expectorated/Coughed Gram Stain - Final ABG Data ABG results: ABG 12/16/20 12/16/20 01:23 08:53 Specimen Type ART ART Sample Site L Radial L Radial pH 7.45 7.42 Bicarbonate Actual 18.6 L 18.0 L Total CO2 19 19 Base Excess -6 L -6 L O2 Saturation 97 100 H O2 % 21 40 ABG pCO2 27.1 L 27.7 L ABG pO2 83 165 H Pasha Test N/A Positive Respiration Rate 14 O2 Delivery Device Room Air Adult Vent Vent Mode AC Tidal Volume 450 POC PEEP 5 Radiography Diagnostic Testing: Radiology Impression Echocardiogram 12/15/20 18:20 Interpretation Summary Normal LV size. Left ventricular systolic function is normal. The estimated ejection fraction is 60 %. Moderate concentric left ventricular hypertrophy. An annuloplasty ring is noted in the mitral position. Contrast injection was performed. Ordering Physician: Jimenez aGllo Referring Physician: Douglas Kathleen Performed By: Radha Johnson, RDISABEL Chest X-Ray 12/16/20 00:56 IMPRESSION: No acute cardiopulmonary disease. Electronically Signed: Yoanna Flores MD at 2:14 EDT , Service support , Brain CT 12/16/20 01:22 IMPRESSION: No acute intracranial process seen. Bilateral maxillary sinusitis. Fractures of the C1 and C2, please see accompanying CT of the cervical spine report. Electronically Signed: Yoanna Flores MD at 2:49 EDT , Service support , Cervical Spine CT 12/16/20 01:26 IMPRESSION: Fractures of the base of the odontoid and spinous process of the odontoid. Fracture involving the anterior arch of C1 and posterolateral elements of C1. Electronically Signed: Yoanna Flores MD at 2:54 EDT , Service support , ADDENDUM: 12/16/20 0321 IMPRESSION: Fractures of the base of the odontoid and spinous process of the odontoid. Fracture involving the anterior arch of C1 and posterolateral elements of C1. N.B. : The above Results were Read Back by Yoanna Flores MD to , AA, and understanding confirmed on 12/16/2020 03:14:28 (ET). Electronically Signed: Yoanna Flores MD at 2:54 EDT , Service support , ADDENDUM: 12/16/20 0348 IMPRESSION: Fractures of the base of the odontoid and spinous process of the odontoid. Fracture involving the anterior arch of C1 and posterolateral elements of C1. N.B. : The above Results were Read Back by Yoanna Flores MD to BOYD Bhatia, and understanding confirmed on 12/16/2020 03:41:37 (ET). Electronically Signed: Yoanna Flores MD at 2:54 EDT , Service support , Chest X-Ray 12/16/20 07:46 IMPRESSION: Trace left pleural effusion with left basilar atelectasis or pneumonia. Endotracheal and orogastric tubes as above. at 0832 Reported and signed by: Isabella Del Valle MD Electronically Signed: Isabella Del Valle MD at 8:31 EDT Tel , Service support , Chest X-Ray 12/16/20 11:10 IMPRESSION: Status post right PICC line placement. The tip is at the junction of the superior vena cava and right atrium. Electronically Signed: Michelet Alvarez MD at 11:32 EDT , Service support , Physical Exam Narrative On examination he was sedated and on the ventilator. Vital signs as documented. Skin warm and dry and without overt rashes. Neck without JVD, trachea midline, thyroid was normal. Lungs clear bilaterally, normal air movement was noted. Heart exam notable for regular rhythm-patient is in atrial flutter, normal sounds and absence of murmurs, rubs or gallops. Abdomen unremarkable and without evidence of organomegaly, masses, or abdominal aortic enlargement. Bowel sounds are present, abdomen is not distended. Extremities nonedematous, no cyanosis was noted, no clubbing was noted. Neuro: Patient is sedated and on the ventilator at this time. Psych: Patient is sedated on the ventilator at this time Assessment & Plan Assessment/Plan (1) Acute hyponatremia: PLAN: 1. Severe hyponatremia-etiology unclear at this time-nephrology is participating in his care #2 atrial flutter-with 4-1 conduction, new onset, patient does not have a history of flutter, I will order an echocardiogram, it may be necessary for cardiology to see the patient, at this time I do not feel the patient needs immediate anticoagulation at this time #3 elevated liver enzymes-etiology unclear, liver profile will be repeated tomorrow #4 acute respiratory failure-secondary to encephalopathy, probably metabolic in nature-critical care is managing ventilator #5 recent cervical fractures of C1 and C2-rigid collar will be maintained, patient saw Dr. Chisholm recently for consultation and according to the , it was instructed that he should have the collar in place at all times. #6 recent thoracic vertebrae fracture T6-according to the patient's , he may take the thoracic brace off at times for hygiene. #7 essential hypertension #8 metabolic encephalopathy-patient is currently sedated on the ventilator, the patient's encephalopathy may be multifactorial but may be in part due to his hyponatremia. Other reasons for the patient's encephalopathy include medication. Charges/Coding Visit Charges Inpatient E&M: 52188 Subs Hosp L2
--- NOTE | 2020-12-16 18:29 | NURSING ---
Addendum entered by Cara Wilson 12/16/20 19:34: 1845 increased to 22.5mcq/min MAP 61 1900 22.5 MAP 80 Original Note: levophed titration 1500 17.5 mcq/min MAP 87 1515 17.5 MAP 84 1530 17.5 MAP 89 1545 17.5 MAP 89 1600 17.5 MAP 88 1700 17.5 MAP 90 1800 17.5 MAP 75 1830 increased to 20mcq/min MAP 54
--- NOTE | 2020-12-16 19:06 | NURSING ---
ed re chronic illness deferred till acute illness resolving
--- NOTE | 2020-12-16 19:37 | NURSING ---
propofol titration 1800 10 mcq/kg/min RASS-1 1815 10 RASS -1 1830 10 RASS -1 1845 10 RASS -1 1900 10 RASS 0
[2020-12-16 20:09] LABS: CPK Total, Creatine Kinase 674 U/L (39-308)
[2020-12-16 20:34] LABS: Sodium Level 114 mmol/L (136-145); Triglycerides 83 mg/dL
[2020-12-16] MEDS: Chlorhexidine 15 ML PO (21:28)
[2020-12-17] VITALS (54 sets, daily range): BP systolic 82–173; BP diastolic 49–100; PULSE 79–152; RESP 13–25; TEMP 36.4–37.1; O2SAT 14–100
[2020-12-17 00:31] LABS: Sodium Level 115 mmol/L (136-145)
[2020-12-17 04:11] LABS: Absolute Lymphocyte Count 0.73 X10^3/uL (0.83-4.51); Absolute Neutrophil Count 8.5 X10^3/uL (2.0-7.7); Basophil# 0.01 X10^3/uL; Basophil% 0.1 % (0-1); Differential Indicated SCAN CRITERIA MET; Eosinophil# 0.01 X10^3/uL; Eosinophils% 0.1 % (0-5); Hematocrit 32.7 % (40-54); Hemoglobin 11.4 g/dL (13.0-16.5); Lymphocyte # 0.73 X10^3/ul (0.83-4.51); Lymphocyte % 7.1 % (19-41); Mean Corp Hgb Conc 34.9 g/dL (32-36); Mean Corpuscular Hgb 28.1 pg (27.0-32.0); Mean Corpuscular Volume 80.5 fL (80-94); Mean Platelet Vol. 9.6 fl (6.2-12.0); Monocyte% 8.8 % (0-10); NRBC Flagged by Analyzer 0 % (0-5); Neutrophil # 8.48 X10^3/uL (2.7-7.7); Neutrophil % 83.1 % (47-70); POSITIVE COUNT YES; RBC Distribution Width CV 14.6 % (11.6-14.6); Red Blood Count 4.06 M/mm3 (4.6-6.2); White Blood Count 10.2 K/mm3 (4.4-11.0)
[2020-12-17 04:34] LABS: Platelet Estimate ADEQUATE (ADEQ)
[2020-12-17 04:50] LABS: ALB/GLOB Ratio 0.9 RATIO (0.9-2.4); AST(SGOT) 42 U/L (15-37); Alanine Aminotransfer ALT/SGPT 46 U/L (16-61); Alkaline Phosphatase 155 U/L (45-117); Anion Gap 13 (5-15); BUN 15 mg/dL (7-18); Calcium,Total 8.1 mg/dL (8.5-10.1); Chloride 81 mmol/L (98-107); EST Glomerular Filtration Rate 80 mL/min (>60); Est Glom Filt Rate - Afr Amer 97 mL/min (>60); Estimated Creatinine Clearance 74.63 ml/min; Globulin 3.4 g/dL (2.2-4.2); Glucose 125 mg/dL (74-106); Potassium 2.9 mmol/L (3.5-5.1); Protein, Total 6.4 g/dL (6.4-8.2); Sodium Level 117 mmol/L (136-145)
--- NOTE | 2020-12-17 05:45 | PN.CC_ITS ---
Assessment & Plan Assessment/Plan (1) Acute hyponatremia: PLAN: RECOMMENDATIONS: 1. Proceed with a trial of extubation this morning. 2. Once extubated, wean supplemental oxygen to maintain saturations at or above 90%. 3. Perform swallow evaluation and advance diet accordingly. 4. Ongoing sodium correction per nephrology recommendations. 5. Continue to hold all sedating medications. 6. Start amiodarone infusion. 7. Potassium repletion as ordered. Check magnesium level as well. IMPRESSIONS: 1. Severe hyponatremia Unclear chronicity. However, the patient's did confirm decreased p.o. intake and concurrent use of diuretics, likely contributing to his hyponatremia. Nephrology is currently following to assist with management. Continue to monitor sodium levels on a serial basis. Hold diuretics accordingly. 2. Acute respiratory failure Although the patient was initially intubated for airway protection as he was noted to be stuporous with sonorous respirations, he has passed his spontaneous breathing trial this morning and is more alert and appropriately interactive. Therefore, we will proceed with a trial of extubation. Once extubated, wean supplemental oxygen to maintain saturations at or above 90%. 3. Encephalopathy Likely multifactorial in etiology. I do suspect that the patient's hallucinations were likely related to his Zanaflex use at home. Undoubtedly, a component of his altered mentation was likely the consequence of his hyponatremia. I do anticipate improvement in his mentation with correction of the above and by withholding sedating medications as tolerated. 4. Atrial fibrillation with RVR The patient did develop what appeared to be atrial fibrillation this morning with a rapid ventricular rate. This will be managed medically with amiodarone as ordered. Continue to monitor clinically. 5. Hypokalemia Electrolyte repletion as ordered. Check magnesium level and replete as needed. 6. Recent fall with cervical and thoracic spine injuries Continue current precautions. 7. Hypertension/GERD Complicates care, management, recovery and prognosis. Hold home antihypertensives for now. Continue PPI therapy. CODE status: Discussed CODE status at length including difference between FULL code, DNR-CCA and DNR-CC status. Following discussions about the differences in these status, patient's requested FULL CODE STATUS. TIME: 38 minutes of critical care time, independent of procedures, was spent addressing the patient's severe hyponatremia, acute respiratory failure, encephalopathy, atrial fibrillation, hypokalemia, review of all data and collaboration with care team. ([id number]) Subjective Subjective The patient was seen and examined at the bedside this morning. Events from the last 24 hours have been reviewed. The patient is currently afebrile, hemodynamically stable and maintaining appropriate oxygen saturations on assist control mode of mechanical ventilation with an FiO2 requirement of 21%. The patient is currently documented to be overall net -1.4 L for the hospital admission. Sodium has improved this morning to 117 with a potassium of 2.9 and chloride of 81. The patient was able to be weaned off of Levophed completely this morning. He did pass his spontaneous breathing trial and appears to be more alert and appropriately interactive. The patient is not currently on any maintenance fluids. Nephrology is following to assist with medical management of his hyponatremia. Objective Data Objective Data The patient's most recent lab work, culture data and imaging studies have all been personally reviewed. Sputum culture is pending. Vital Signs: Vital Signs Temp Pulse Resp BP Pulse Ox 97.5 F L 98 19 H 135/68 H 96 12/17/20 04:30 12/17/20 05:15 12/17/20 05:15 12/17/20 05:15 12/17/20 05:15 Oxygen Flow Rate (L/min) 21 Oxygen Delivery Method Mechanical Ventilator Weight: 186 lb 11.2 oz Body Mass Index (BMI) 28.3 Intake & Output: Intake and Output for Last 24 Hours 12/15/20 12/16/20 12/17/20 23:59 23:59 23:59 Intake Total 435 / 435 2024.34 / 2042.04 240.85 / 240.85 Output Total 200 / 450 3725 / 3725 200 / 200 Balance 235 / -15 -1700.66 / -1682.96 40.85 / 40.85 Lab / Micro Data Attestation: I reviewed the patient's lab results. Result Diagrams: 12/17/20 04:00 12/17/20 04:00 Labs: Laboratory Results - last 24 hr 12/16/20 07:20: Sodium 116 L* 12/16/20 09:00: Sodium Cancelled 12/16/20 09:00: Sodium 115 L*, Potassium 4.2, Chloride 82 L, Carbon Dioxide 21.0, Anion Gap 12, BUN 10, Creatinine 0.74, Estim Creat Clear Calc 100.85, Est GFR (MDRD) Af Amer 137, Est GFR (MDRD) Non-Af 113, BUN/Creatinine Ratio 13.5, Glucose 123 H, Calcium 7.2 L 12/16/20 09:00: Total Creatine Kinase 674 H 12/16/20 11:59: Sodium 113 L* 12/16/20 16:00: Sodium 114 L* 12/16/20 19:45: Sodium 114 L*, Triglycerides 83 12/16/20 23:50: Sodium 115 L* 12/17/20 04:00: WBC 10.2, RBC 4.06 L, Hgb 11.4 L, Hct 32.7 L, MCV 80.5, MCH 28.1, MCHC 34.9, RDW Std Deviation 43.0, RDW Coeff of Mejia 14.6, Plt Count TNP, MPV 9.6, Immature Gran % (Auto) 0.800, Neut % (Auto) 83.1 H, Lymph % (Auto) 7.1 L, [place] % (Auto) 8.8, Eos % (Auto) 0.1, Baso % (Auto) 0.1, Absolute Neuts (auto) 8.5 H, Absolute Lymphs (auto) 0.73 L, Nucleated RBC % 0, Platelet Estimate ADEQUATE 12/17/20 04:00: Sodium 117 L*, Potassium 2.9 L, Chloride 81 L, Carbon Dioxide 23.0, Anion Gap 13, BUN 15, Creatinine 1.00, Estim Creat Clear Calc 74.63, Est GFR (MDRD) Af Amer 97, Est GFR (MDRD) Non-Af 80, BUN/Creatinine Ratio 15.0, Glucose 125 H, Calcium 8.1 L, Total Bilirubin 0.80, AST 42 H, ALT 46, Alkaline Phosphatase 155 H, Total Protein 6.4, Albumin 3.0 L, Globulin 3.4, Albumin/Globulin Ratio 0.9 Micro: Microbiology 12/16/20 07:50 Sputum, Expectorated/Coughed Gram Stain - Final ABG Data ABG results: ABG 12/16/20 08:53 Specimen Type ART Sample Site L Radial pH 7.42 Bicarbonate Actual 18.0 L Total CO2 19 Base Excess -6 L O2 Saturation 100 H O2 % 40 ABG pCO2 27.7 L ABG pO2 165 H Pasha Test Positive Respiration Rate 14 O2 Delivery Device Adult Vent Vent Mode AC Tidal Volume 450 POC PEEP 5 Radiography Diagnostic Testing: Radiology Impression Echocardiogram 12/15/20 18:20 Interpretation Summary Normal LV size. Left ventricular systolic function is normal. The estimated ejection fraction is 60 %. Moderate concentric left ventricular hypertrophy. An annuloplasty ring is noted in the mitral position. Contrast injection was performed. Ordering Physician: Jimenez Gallo Referring Physician: Douglas Kathleen Performed By: Radha Johnson, SANDIP Chest X-Ray 12/16/20 07:46 IMPRESSION: Trace left pleural effusion with left basilar atelectasis or pneumonia. Endotracheal and orogastric tubes as above. at 0832 Reported and signed by: Isabella Del Valle MD Electronically Signed: Isabella Del Valle MD at 8:31 EDT Tel , Service support , Chest X-Ray 12/16/20 11:10 IMPRESSION: Status post right PICC line placement. The tip is at the junction of the superior vena cava and right atrium. Electronically Signed: Michelet Alvarez MD at 11:32 EDT , Service support , Physical Exam Const alert and no apparent distress General Appearance: intubated and patient mechanically ventilated HEENT normocephalic and head/scalp atraumatic Mouth: endotracheal tube in place and OG tube in place Eyes PERRL, EOMs intact bilaterally and conjunctivae normal Neck supple General: trachea midline Resp normal respiratory effort Auscultation: Negative for rales, rhonchi or wheezes Cardio S1 normal heart sound and S2 normal heart sound Rate: tachycardic Heart Sounds: Negative for murmur GI normal to inspection, nondistended, normoactive bowel sounds Extremity no clubbing, cyanosis or edema Skin no rashes or lesions noted Neuro no focal motor deficits Charges/Coding Procedures Hospitalists Procedures: 38579 Critial Care 1st Hr
[2020-12-17] MEDS: Metoprolol Tartrate 5 MG/5 ML Vial IV (07:30)
--- NOTE | 2020-12-17 07:31 | EKG12_ITS ---
Test Reason : ARRTHYMIA Blood Pressure : / mmHG Vent. Rate : 103 BPM Atrial Rate : 082 BPM P-R Int : 000 ms QRS Dur : 110 ms QT Int : 354 ms P-R-T Axes : 000 -50 019 degrees QTc Int : 463 ms Atrial fibrillation Left anterior fascicular block Abnormal ECG When compared with ECG of 15-DEC-2020 14:25, Atrial fibrillation has replaced Atrial flutter Nonspecific T wave abnormality no longer evident in Lateral leads Confirmed by ALEKSEY CABRERA, ALEXANDER ([id number]), publication editor MELISSA HUMPHREYS ([id number]) on 12/18/2020 9:34:13 AM Referred By: Eva ABERNATHY Confirmed By:VIKA RYDER MD
[2020-12-17] MEDS: Amiodarone 360 MG in Dextrose 5% Viaflo Bag 192.8 ML 33.3 MG CONT INF (09:38)
[2020-12-17] MEDS: levoFLOXacin IV 500 MG/100 ML BAG 100 MG IV (11:02)
[2020-12-17 11:16] LABS: Magnesium 1.8 mg/dL (1.6-2.6)
[2020-12-17] MEDS: Chlorhexidine 15 ML PO (12:19)
[2020-12-17] MEDS: Heparin Injection (Vial) 5,000 UNIT/ML VIAL 5000 UNIT SC ×2 (12:24→21:27)
--- NOTE | 2020-12-17 15:42 | CHAPLAIN ---
Type of Pastoral Visit _x__ Initial Visit ___ Follow-up Visit ___ On-call Visit ___ General Patient Visit ___ Spiritual Assessment ___ Family Conference ___ Bereavement ___ Rapid Response ___ Code Blue ___ Other (describe below) Pastoral Care Referral From _x__ Patient ___ Family ___ Nurse ___ Physician ___ Multimedia Programmer ___ Yardage Caller ___ Other (describe below) Sacrament/Intervention _x__ Active listening ___ Anointing ___ Confucianist ___ Bereavement ___ Communion ___ [place] exploration ___ ___ Life review _x__ Prayer ___ Reconciliation ___ Sacrament of Sick _x__ Supportive presence ___ Wedding ___ Other (describe below) Pastoral Comments found patient to be alert and oriented; pt is aware that he had difficult couple of days; pt describes his head injury of last month; pt concern is for his who has to handle everything right now and is doing a great job; pt accepts a prayer and expresses appreciation for the visit; pt goal is to get home soon
[2020-12-17] MEDS: Amiodarone 360 MG in Dextrose 5% Viaflo Bag 192.8 ML 16.7 MG CONT INF (16:17)
--- NOTE | 2020-12-17 19:06 | PCM.PN.HOSP ---
Subjective Subjective Patient was seen and examined today, he was extubated earlier this morning and is currently on nasal cannula oxygen. Patient does not appear to be in respiratory distress, I talked briefly with nephrology about his care, his sodium is improved however yesterday. Objective Data Objective Data Vital Signs: Vital Signs Temp Pulse Resp BP Pulse Ox 98.3 F 104 H 24 H 128/68 H 100 12/17/20 12:00 12/17/20 18:00 12/17/20 18:00 12/17/20 18:00 12/17/20 18:00 Oxygen Flow Rate (L/min) 4 Oxygen Delivery Method Nasal Cannula Weight: 84.686 kg Body Mass Index (BMI) 28.3 Intake & Output: Intake and Output for Last 24 Hours 12/15/20 12/16/20 12/17/20 23:59 23:59 23:59 Intake Total 435 / 435 2024.34 / 2042.04 998.81 / 998.81 Output Total 200 / 450 3725 / 3725 1660 / 1660 Balance 235 / -15 -1700.66 / -1682.96 -661.19 / -661.19 Lab / Micro Data Result Diagrams: 12/17/20 04:00 12/17/20 04:00 Labs: Laboratory Results - last 24 hr 12/16/20 09:00: Total Creatine Kinase 674 H 12/16/20 19:45: Sodium 114 L*, Triglycerides 83 12/16/20 23:50: Sodium 115 L* 12/17/20 04:00: WBC 10.2, RBC 4.06 L, Hgb 11.4 L, Hct 32.7 L, MCV 80.5, MCH 28.1, MCHC 34.9, RDW Std Deviation 43.0, RDW Coeff of Mejia 14.6, Plt Count TNP, MPV 9.6, Immature Gran % (Auto) 0.800, Neut % (Auto) 83.1 H, Lymph % (Auto) 7.1 L, [place] % (Auto) 8.8, Eos % (Auto) 0.1, Baso % (Auto) 0.1, Absolute Neuts (auto) 8.5 H, Absolute Lymphs (auto) 0.73 L, Nucleated RBC % 0, Platelet Estimate ADEQUATE 12/17/20 04:00: Sodium 117 L*, Potassium 2.9 L, Chloride 81 L, Carbon Dioxide 23.0, Anion Gap 13, BUN 15, Creatinine 1.00, Estim Creat Clear Calc 74.63, Est GFR (MDRD) Af Amer 97, Est GFR (MDRD) Non-Af 80, BUN/Creatinine Ratio 15.0, Glucose 125 H, Calcium 8.1 L, Total Bilirubin 0.80, AST 42 H, ALT 46, Alkaline Phosphatase 155 H, Total Protein 6.4, Albumin 3.0 L, Globulin 3.4, Albumin/Globulin Ratio 0.9 12/17/20 04:00: Magnesium 1.8 Micro: Microbiology 12/16/20 07:50 Sputum, Expectorated/Coughed Gram Stain - Final Physical Exam Const alert, oriented x3 and well nourished Constitutional Narrative: Patient exhibits mild confusion HEENT head/scalp atraumatic Head and Scalp: normocephalic Eyes PERRL, EOMs intact bilaterally and conjunctivae normal Resp normal respiratory effort, no retractions, no use of accessory muscles and clear to auscultation bilaterally Cardio Cardio Narrative: Heart rate and rhythm is irregular GI normal to inspection, nondistended, normoactive bowel sounds, soft to palpation and non-tender Extremity normal to inspection and no clubbing, cyanosis or edema Skin no rashes or lesions noted Neuro CN's II-XII intact bilaterally and no focal motor deficits Sensorium / Orientation: awake and alert Psych Psych Narrative: Patient exhibits mild confusion Assessment & Plan Assessment/Plan (1) Hyponatremia: PLAN: (1) Acute hyponatremia: PLAN: 1. Severe hyponatremia-etiology unclear at this time-nephrology is participating in his care #2 atrial flutter/fibrillation-patient's echocardiogram shows a normal LV function with evidence of annuloplasty ring noted in the mitral position, critical care placed the patient on amiodarone today #3 elevated liver enzymes-etiology unclear, liver enzymes are trending downward #4 acute respiratory failure-secondary to encephalopathy, probably metabolic in nature, patient was extubated this morning and is currently on nasal cannula O2 #5 recent cervical fractures of C1 and C2-rigid collar will be maintained, patient saw Dr. Chisholm recently for consultation and according to the , it was instructed that he should have the collar in place at all times. #6 recent thoracic vertebrae burst fracture T6-according to the patient's , he may take the thoracic brace off at times for hygiene. #7 essential hypertension Charges/Coding Visit Charges Inpatient E&M: 63655 Subs Hosp L2
--- NOTE | 2020-12-17 21:14 | PN.RENAL_ITS ---
Subjective Subjective Following for hyponatremia. Pt is extubated. Alert. No headache or nausea. Still with some confusion but re directable. Objective Data Objective Data Vital Signs: Vital Signs Temp Pulse Resp BP Pulse Ox 98.3 F 104 H 24 H 128/68 H 100 12/17/20 12:00 12/17/20 18:00 12/17/20 18:00 12/17/20 18:00 12/17/20 18:00 Oxygen Flow Rate (L/min) 4 Oxygen Delivery Method Nasal Cannula Weight: 84.686 kg Body Mass Index (BMI) 28.3 Intake & Output: Intake and Output for Last 24 Hours 12/15/20 12/16/20 12/17/20 23:59 23:59 23:59 Intake Total 435 / 435 2024.34 / 2042.04 998.81 / 998.81 Output Total 200 / 450 3725 / 3725 1660 / 1660 Balance 235 / -15 -1700.66 / -1682.96 -661.19 / -661.19 Lab / Micro Data Result Diagrams: 12/17/20 04:00 12/17/20 04:00 Labs: Laboratory Results - last 24 hr 12/16/20 23:50: Sodium 115 L* 12/17/20 04:00: WBC 10.2, RBC 4.06 L, Hgb 11.4 L, Hct 32.7 L, MCV 80.5, MCH 28.1, MCHC 34.9, RDW Std Deviation 43.0, RDW Coeff of Mejia 14.6, Plt Count TNP, MPV 9.6, Immature Gran % (Auto) 0.800, Neut % (Auto) 83.1 H, Lymph % (Auto) 7.1 L, [place] % (Auto) 8.8, Eos % (Auto) 0.1, Baso % (Auto) 0.1, Absolute Neuts (auto) 8.5 H, Absolute Lymphs (auto) 0.73 L, Nucleated RBC % 0, Platelet Estimate ADEQUATE 12/17/20 04:00: Sodium 117 L*, Potassium 2.9 L, Chloride 81 L, Carbon Dioxide 23.0, Anion Gap 13, BUN 15, Creatinine 1.00, Estim Creat Clear Calc 74.63, Est GFR (MDRD) Af Amer 97, Est GFR (MDRD) Non-Af 80, BUN/Creatinine Ratio 15.0, Glucose 125 H, Calcium 8.1 L, Total Bilirubin 0.80, AST 42 H, ALT 46, Alkaline Phosphatase 155 H, Total Protein 6.4, Albumin 3.0 L, Globulin 3.4, Albumin/Globulin Ratio 0.9 12/17/20 04:00: Magnesium 1.8 Micro: Microbiology 12/16/20 07:50 Sputum, Expectorated/Coughed Gram Stain - Final Physical Exam Narrative General: Alert, oriented x3 HEENT: Normocephalic, atraumatic. Mucous membranes moist. Heart: Normal S1, S2. No rubs or murmurs. Lungs: Clear to auscultation anteriorly. Abdomen: Normal bowel sound, soft, nontender, no guarding or rebound. Extremity: No edema. 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 Another possible cause of hyponatremia would be from use of hydrochlorothiazide which has been stopped. The patient does have risk factor for osmotic demyelination (low presenting serum sodium and hypokalemia). Therefore, serum sodium was relowered yesterday by D5W. Sodium level has increased in the last 24 hours at a safe rate. Therefore, D5W was stopped. I will check serum sodium again later tonight. Aim for serum sodium around 123 to 125 mmol/L tonight. (2) Hypokalemia: PLAN: Hypokalemia was initially secondary to diuretic which the patient was taking for hypertension prior to admission. Persistent hypokalemia today is due to polyuria (patient made more than 3 L of urine in the last 24 hours). Magnesium level is acceptable at 1.8 mg/dL today. Potassium has been repleted today. We will recheck potassium level again tonight. As mentioned before, potassium correction could also contribute to increasing serum sodium. Therefore, we will monitor serum sodium closely as mentioned above. (3) HTN (hypertension): PLAN: BP was initially high. The patient has been appropriately taken off of hydrochlorothiazide due to hyponatremia. He is on metoprolol. Blood pressure is currently acceptable. The patient's blood pressure will be monitored again the ICU closely.
[2020-12-17] MEDS: 0.9% Saline Lock 10 ML Syringe IV (21:32)
[2020-12-17] MEDS: Metoprolol Tartrate 50 MG Tablet GT (21:32)
[2020-12-17 21:57] LABS: Anion Gap 10 (5-15); BUN 19 mg/dL (7-18); BUN/Creat Ratio 24.9 RATIO (10-20); Calcium,Total 8.5 mg/dL (8.5-10.1); Chloride 88 mmol/L (98-107); Creatinine, Serum 0.76 mg/dL (0.70-1.30); EST Glomerular Filtration Rate 109 mL/min (>60); Est Glom Filt Rate - Afr Amer 132 mL/min (>60); Estimated Creatinine Clearance 98.19 ml/min; Glucose 182 mg/dL (74-106); Potassium 3.9 mmol/L (3.5-5.1); Sodium Level 121 mmol/L (136-145)
[2020-12-18] VITALS (25 sets, daily range): BP systolic 94–169; BP diastolic 50–97; PULSE 75–125; RESP 15–22; TEMP 36.4–37.1; O2SAT 90–99
[2020-12-18] MEDS: Amiodarone 360 MG in Dextrose 5% Viaflo Bag 192.8 ML 16.7 MG CONT INF (04:16)
[2020-12-18 04:35] LABS: Albumin, Serum 2.8 g/dL (3.2-5.0); BUN 19 mg/dL (7-18); BUN/Creat Ratio 25.9 RATIO (10-20); Calcium,Total 8.7 mg/dL (8.5-10.1); Chloride 88 mmol/L (98-107); Creatinine, Serum 0.74 mg/dL (0.70-1.30); EST Glomerular Filtration Rate 114 mL/min (>60); Est Glom Filt Rate - Afr Amer 138 mL/min (>60); Estimated Creatinine Clearance 100.85 ml/min; Glucose 184 mg/dL (74-106); Phosphorus 1.8 mg/dL (2.5-4.9); Potassium 3.8 mmol/L (3.5-5.1); Sodium Level 122 mmol/L (136-145)
--- NOTE | 2020-12-18 05:37 | PN.CC_ITS ---
Assessment & Plan Assessment/Plan (1) Acute hyponatremia: PLAN: RECOMMENDATIONS: 1. Ongoing sodium correction per nephrology recommendations. 2. Continue to hold all sedating medications. 3. Okay to discontinue amiodarone infusion and continue beta-moy regimen. 4. Continue PPI therapy. 5. Continue Levaquin to complete 7-day treatment course for sinusitis. 6. Phosphate repletion as ordered. 7. The patient is medically stable for transfer out of the intensive care unit. IMPRESSIONS: 1. Severe hyponatremia Improving. The patient's did confirm decreased p.o. intake and concurrent use of diuretics, likely contributing to his hyponatremia. Nephrology is currently following to assist with management. Continue to monitor sodium levels on a serial basis. Hold diuretics accordingly. 2. Acute respiratory failure Although the patient was initially intubated for airway protection as he was n oted to be stuporous with sonorous respirations, he was able to be successfully extubated a short time later on December 17. Supplemental oxygen was weaned and the patient is now maintaining appropriate oxygen saturations on room air. Continue to encourage incentive spirometer use and mobilize patient as tolerated. 3. Encephalopathy Likely multifactorial in etiology. I do suspect that the patient's hallucinations were likely related to his Zanaflex use at home. Undoubtedly, a component of his altered mentation was likely the consequence of his hyponatremia. I do anticipate improvement in his mentation with correction of the above and by withholding sedating medications as tolerated. 4. Atrial fibrillation with RVR The patient did develop atrial fibrillation with RVR during his hospitalization. This was initially treated with amiodarone. At this time, the amiodarone infusion can be discontinued. The patient will be continued on his baseline beta-moy regimen. 5. Hypophosphatemia Electrolyte repletion as ordered. Recheck levels in the morning. 6. Recent fall with cervical and thoracic spine injuries Continue current precautions. 7. Hypertension/GERD Complicates care, management, recovery and prognosis. Continue PPI therapy. CODE status: Discussed CODE status at length including difference between FULL code, DNR-CCA and DNR-CC status. Following discussions about the differences in these status, patient's requested FULL CODE STATUS. Subjective Subjective The patient was seen and examined at the bedside this morning. Events from the last 24 hours have been reviewed. The patient is currently afebrile, hemodynamically stable and maintaining appropriate oxygen saturations on 4 L/min via nasal cannula. The patient is currently documented to be overall net -1.8 L for the hospital admission. Sodium has increased to 122 this morning. Phosphor us is low at 1.8. The patient remains in rate controlled atrial fibrillation on amiodarone. The patient did pass a swallow evaluation yesterday and was able to receive p.o. medications. He has remained confused overnight per nursing report. Objective Data Objective Data The patient's most recent lab work, culture data and imaging studies have all been personally reviewed. Sputum culture has not demonstrated any growth to date. Vital Signs: Vital Signs Temp Pulse Resp BP Pulse Ox 98.7 F 84 20 H 117/69 100 12/17/20 22:00 12/18/20 04:16 12/17/20 22:00 12/18/20 04:16 12/17/20 22:00 Oxygen Flow Rate (L/min) 4 Oxygen Delivery Method Nasal Cannula Weight: 82.1 kg Body Mass Index (BMI) 28.3 Intake & Output: Intake and Output for Last 24 Hours 12/16/20 12/17/20 12/18/20 23:59 23:59 23:59 Intake Total 2024.34 / 2042.04 1160.88 / 1160.88 137.93 / 137.93 Output Total 3725 / 3725 1660 / 1660 Balance -1700.66 / -1682.96 -499.12 / -499.12 137.93 / 137.93 Lab / Micro Data Attestation: I reviewed the patient's lab results. Result Diagrams: 12/17/20 04:00 12/18/20 04:00 Labs: Laboratory Results - last 24 hr 12/17/20 04:00: Magnesium 1.8 12/17/20 21:25: Sodium 121 L, Potassium 3.9, Chloride 88 L, Carbon Dioxide 23.0, Anion Gap 10, BUN 19 H, Creatinine 0.76, Estim Creat Clear Calc 98.19, Est GFR (MDRD) Af Amer 132, Est GFR (MDRD) Non-Af 109, BUN/Creatinine Ratio 24.9 H, Glucose 182 H, Calcium 8.5 12/18/20 04:00: Sodium 122 L, Potassium 3.8, Chloride 88 L, Carbon Dioxide 23.0, BUN 19 H, Creatinine 0.74, Estim Creat Clear Calc 100.85, Est GFR (MDRD) Af Amer 138, Est GFR (MDRD) Non-Af 114, BUN/Creatinine Ratio 25.9 H, Glucose 184 H, Calcium 8.7, Phosphorus 1.8 L, Albumin 2.8 L Micro: Microbiology 12/16/20 07:50 Sputum, Expectorated/Coughed Gram Stain - Final Physical Exam Const alert and no apparent distress General Appearance: cooperative Orientation / Consciousness: confused HEENT normocephalic, head/scalp atraumatic and moist oral mucous membranes Eyes PERRL, EOMs intact bilaterally and conjunctivae normal Neck supple General: trachea midline Resp normal respiratory effort Auscultation: Negative for rales, rhonchi or wheezes Cardio regular rate, regular rhythm, S1 normal heart sound and S2 normal heart sound Heart Sounds: Negative for murmur GI normal to inspection, nondistended, normoactive bowel sounds Extremity no clubbing, cyanosis or edema Skin no rashes or lesions noted Neuro CN's II-XII intact bilaterally, moves all extremities and no focal motor deficits Psych cooperative and affect normal Charges/Coding Visit Charges Inpatient E&M: 51541 Subs Hosp L3
--- NOTE | 2020-12-18 10:38 | CASEMGMT ---
Addendum entered by Trudy Cannon 12/18/20 14:29: Social Work Return call from [facility] and they do accept [facility]. [facility] is no longer open. Jamila from [facility] states that they can accept pt into [facility] once pt NA+ is greater than 130. Dr. Gallo updated and states pt will be here through the weekend. Phone call placed to Susan, pt and updated on SNFs that are able to accept [facility] and that [facility] is able to accept pt. Susan states she would like to see how pt does over the weekend before she makes final decision. SW will follow up with pt and on Monday. ROBE Mena Original Note: Social Work SW met with OT and RN and discussed pt care needs. Recommendations are for continued rehab after acute hospital stay as pt is weak, unsteady and displaying cognitive deficits. Phone call to pt and discussed discharge plans. Pt would like to take pt home if possible but is realistic that if pt needs short term rehab prior to return home she would be agreeable to this. SW review list of SNF and Rehab providers with . Pt is open to [facility] Re[facility] unit and SNF's in [facility] and [facility]. SW will call facilities to determine if they would consider Workers Comp claims. requesting medical update. Pt nurse updated and will call pt . [facility] - referral made and will be reviewed. TCU - do not accept [facility] - would consider and have beds available [facility] - would consider and have beds available [facility] - would consider and have beds available [facility] - would consider and have beds available [facility] - do not accept [facility] - voicemail left [facility] - voicemail left [facility] - no answer SW will follow up with pt after information obtained from out standing facilities and discuss discharge options. ROBE Mena
[2020-12-18] MEDS: levoFLOXacin IV 500 MG/100 ML BAG 100 MG IV (11:12)
[2020-12-18] MEDS: Heparin Injection (Vial) 5,000 UNIT/ML VIAL 5000 UNIT SC ×2 (11:13→20:41)
[2020-12-18] MEDS: Metoprolol Tartrate 50 MG Tablet GT (11:13)
--- NOTE | 2020-12-18 11:25 | PN.RENAL_ITS ---
Subjective Subjective The patient remains in rate controlled atrial fibrillation on amiodarone. Na stable Objective Data Objective Data Vital Signs: Vital Signs Temp Pulse Resp BP Pulse Ox 97.6 F L 97 21 H 161/83 H 96 12/18/20 08:00 12/18/20 11:13 12/18/20 10:00 12/18/20 11:13 12/18/20 10:00 Oxygen Flow Rate (L/min) 4 Oxygen Delivery Method Room Air Weight: 82.1 kg Body Mass Index (BMI) 28.3 Intake & Output: Intake and Output for Last 24 Hours 12/16/20 12/17/20 12/18/20 23:59 23:59 23:59 Intake Total 2024.34 / 2042.04 1160.88 / 1160.88 288.85 / 288.85 Output Total 3725 / 3725 1660 / 1660 200 / 200 Balance -1700.66 / -1682.96 -499.12 / -499.12 88.85 / 88.85 Lab / Micro Data Result Diagrams: 12/17/20 04:00 12/18/20 04:00 Labs: Laboratory Results - last 24 hr 12/17/20 21:25: Sodium 121 L, Potassium 3.9, Chloride 88 L, Carbon Dioxide 23.0, Anion Gap 10, BUN 19 H, Creatinine 0.76, Estim Creat Clear Calc 98.19, Est GFR (MDRD) Af Amer 132, Est GFR (MDRD) Non-Af 109, BUN/Creatinine Ratio 24.9 H, Glu cose 182 H, Calcium 8.5 12/18/20 04:00: Sodium 122 L, Potassium 3.8, Chloride 88 L, Carbon Dioxide 23.0, BUN 19 H, Creatinine 0.74, Estim Creat Clear Calc 100.85, Est GFR (MDRD) Af Amer 138, Est GFR (MDRD) Non-Af 114, BUN/Creatinine Ratio 25.9 H, Glucose 184 H, Calcium 8.7, Phosphorus 1.8 L, Albumin 2.8 L Micro: Microbiology 12/16/20 07:50 Sputum, Expectorated/Coughed Gram Stain - Final 12/16/20 07:50 Sputum, Expectorated/Coughed Respiratory Culture - Preliminary Appears to be normal respiratory ana. Further studies to follow. Physical Exam Narrative General: Alert, oriented x3 HEENT: Normocephalic, atraumatic. Mucous membranes moist. Heart: Normal S1, S2. No rubs or murmurs. Lungs: Clear to auscultation anteriorly. Abdomen: Normal bowel sound, soft, nontender, no guarding or rebound. Extremity: No edema. 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 Another possible cause of hyponatremia would be from use of hydrochlorothiazide which has been stopped. The patient does have risk factor for osmotic demyelination (low presenting serum sodium and hypokalemia). Therefore, serum sodium was relowered yesterday by D5W. Sodium level has increased in the last 24 hours at a safe rate. Therefore, D5W was stopped. Sodium 122 I will check serum sodium again later tonight. Aim for serum sodium around 123 to 125 mmol/L tonight. (2) Hypokalemia: PLAN: Hypokalemia was initially secondary to diuretic which the patient was taking for hypertension prior to admission. Persistent hypokalemia today is due to polyuria (patient made more than 3 L of urine in the last 24 hours) today 3.8 . Magnesium level is acceptable at 1.8 mg/dL today. We will recheck potassium level again tomorrow no need to replete. As mentioned before, potassium correction could also contribute to increasing serum sodium. Therefore, we will monitor serum sodium closely as mentioned above. (3) HTN (hypertension): PLAN: BP was initially high. The patient has been appropriately taken off of hydrochlorothiazide due to hyponatremia. He is on metoprolol. Blood pressure is currently acceptable. The patient's blood pressure will be monitored again the ICU closely.
--- NOTE | 2020-12-18 15:38 | NURSING ---
report called to [facility] for transfer to room 101, transferred per bed with belongings , Susan informed
--- NOTE | 2020-12-18 19:02 | PN.HOSP_ITS ---
Subjective Subjective Patient was seen and examined today, I briefly discussed his care with critical care today, patient appears stable for transfer from the ICU to PCU and he was transferred out today. Patient still has some confusion although he does know he is in the hospital. Patient's sodium today was 122, due to the patient's s tability, he will more than likely have to be transferred to an extended care facility for short-term rehab when he is stable to be discharged in the hospital. Objective Data Objective Data Vital Signs: Vital Signs Temp Pulse Resp BP Pulse Ox 98.8 F 97 20 H 148/88 H 97 12/18/20 16:03 12/18/20 16:03 12/18/20 16:03 12/18/20 16:03 12/18/20 16:03 Oxygen Flow Rate (L/min) 2 Oxygen Delivery Method Room Air Weight: 82.1 kg Body Mass Index (BMI) 28.3 Intake & Output: Intake and Output for Last 24 Hours 12/16/20 12/17/20 12/18/20 23:59 23:59 23:59 Intake Total 2024.34 / 2042.04 1160.88 / 1160.88 648.85 / 648.85 Output Total 3725 / 3725 1660 / 1660 930 / 930 Balance -1700.66 / -1682.96 -499.12 / -499.12 -281.15 / -281.15 Lab / Micro Data Result Diagrams: 12/17/20 04:00 12/18/20 04:00 Labs: Laboratory Results - last 24 hr 12/17/20 21:25: Sodium 121 L, Potassium 3.9, Chloride 88 L, Carbon Dioxide 23.0, Anion Gap 10, BUN 19 H, Creatinine 0.76, Estim Creat Clear Calc 98.19, Est GFR (MDRD) Af Amer 132, Est GFR (MDRD) Non-Af 109, BUN/Creatinine Ratio 24.9 H, Glucose 182 H, Calcium 8.5 12/18/20 04:00: Sodium 122 L, Potassium 3.8, Chloride 88 L, Carbon Dioxide 23.0, BUN 19 H, Creatinine 0.74, Estim Creat Clear Calc 100.85, Est GFR (MDRD) Af Amer 138, Est GFR (MDRD) Non-Af 114, BUN/Creatinine Ratio 25.9 H, Glucose 184 H, Calcium 8.7, Phosphorus 1.8 L, Albumin 2.8 L Micro: Microbiology 12/16/20 07:50 Sputum, Expectorated/Coughed Gram Stain - Final 12/16/20 07:50 Sputum, Expectorated/Coughed Respiratory Culture - Preliminary Appears to be normal respiratory ana. Further studies to follow. Physical Exam Const alert and healthy appearing Constitutional Narrative: Patient is oriented to self and place General Appearance: cooperative, well kempt and well developed Orientation / Consciousness: awake, oriented to person, oriented to place and oriented to time HEENT normocephalic, head/scalp atraumatic and moist oral mucous membranes Head and Scalp: normocephalic Eyes PERRL, EOMs intact bilaterally and conjunctivae normal Neck nuchal rigidity, supple, no JVD, thyroid normal and no carotid bruits General: trachea midline Resp normal respiratory effort, no retractions, no use of accessory muscles and clear to auscultation bilaterally Resp Narrative: Scattered expiratory rhonchi are noted bilaterally Auscultation: rhonchi; Negative for rales or wheezes Cardio no murmurs, no rub and no gallops Cardio Narrative: Heart rate and rhythm is irregular GI normal to inspection, nondistended, normoactive bowel sounds, soft to palpation, non-tender and non-distended Extremity normal to inspection and no clubbing, cyanosis or edema Skin no rashes or lesions noted General Skin Exam: no breakdown Neuro CN's II-XII intact bilaterally, no focal motor deficits and no sensory deficits noted Sensorium / Orientation: awake and alert Speech: speech normal Psych thought process normal and affect normal Assessment & Plan Assessment/Plan (1) Hyponatremia: PLAN: (1) Hyponatremia: PLAN: (1) Acute hyponatremia: PLAN: 1. Severe hyponatremia-etiology unclear at this time-nephrology is participating in his care, sodium is improved #2 atrial flutter/fibrillation-patient is currently on metoprolol, I will make a decision whether or not to place the patient on full anticoagulation in the near future #3 elevated liver enzymes-etiology unclear #4 acute respiratory failure-secondary to encephalopathy, probably metabolic in nature, patient is currently on room air #5 recent cervical fractures of C1 and C2-rigid collar will be maintained, patient saw Dr. Chisholm recently for consultation and according to the , it was instructed that he should have the collar in place at all times. #6 recent thoracic vertebrae burst fracture T6-according to the patient's , he may take the thoracic brace off at times for hygiene. #7 essential hypertension #8 sinusitis-patient is currently on IV Levaquin, I will change him to oral Levaquin Charges/Coding Visit Charges Inpatient E&M: 63465 Subs Hosp L2
[2020-12-18] MEDS: Metoprolol Tartrate 50 MG Tablet PO (20:41)
[2020-12-19] VITALS (14 sets, daily range): BP systolic 79–143; BP diastolic 60–96; PULSE 109–155; RESP 14–26; TEMP 36.1–36.7; O2SAT 96–100
[2020-12-19 04:30] LABS: Absolute Lymphocyte Count 0.65 X10^3/uL (0.83-4.51); Absolute Neutrophil Count 6.1 X10^3/uL (2.0-7.7); Basophil# 0.01 X10^3/uL; Basophil% 0.1 % (0-1); Eosinophil# 0.01 X10^3/uL; Eosinophils% 0.1 % (0-5); Hematocrit 33.2 % (40-54); Hemoglobin 11.1 g/dL (13.0-16.5); Lymphocyte # 0.65 X10^3/ul (0.83-4.51); Lymphocyte % 8.6 % (19-41); Mean Corp Hgb Conc 33.4 g/dL (32-36); Mean Corpuscular Hgb 27.7 pg (27.0-32.0); Mean Corpuscular Volume 82.8 fL (80-94); Mean Platelet Vol. 9.3 fl (6.2-12.0); Monocyte# 0.74 X10^3/uL; Monocyte% 9.8 % (0-10); NRBC Flagged by Analyzer 0 % (0-5); Neutrophil # 6.11 X10^3/uL (2.7-7.7); Neutrophil % 80.6 % (47-70); Platelet Count 264 K/mm3 (150-450); RBC Distribution Width CV 15.6 % (11.6-14.6); RBC Distribution Width SD 46.9 fl (35.1-43.9); Red Blood Count 4.01 M/mm3 (4.6-6.2); White Blood Count 7.6 K/mm3 (4.4-11.0)
[2020-12-19 04:51] LABS: ALB/GLOB Ratio 0.7 RATIO (0.9-2.4); AST(SGOT) 29 U/L (15-37); Alanine Aminotransfer ALT/SGPT 40 U/L (16-61); Albumin, Serum 2.9 g/dL (3.2-5.0); Alkaline Phosphatase 135 U/L (45-117); Anion Gap 12 (5-15); BUN 22 mg/dL (7-18); Calcium,Total 8.9 mg/dL (8.5-10.1); Chloride 94 mmol/L (98-107); Creatinine, Serum 0.63 mg/dL (0.70-1.30); EST Glomerular Filtration Rate 136 mL/min (>60); Est Glom Filt Rate - Afr Amer 165 mL/min (>60); Estimated Creatinine Clearance 118.46 ml/min; Globulin 3.9 g/dL (2.2-4.2); Glucose 122 mg/dL (74-106); Potassium 4.1 mmol/L (3.5-5.1); Protein, Total 6.8 g/dL (6.4-8.2); Sodium Level 129 mmol/L (136-145)
[2020-12-19] MEDS: levoFLOXacin 500 MG Tablet PO (04:53)
--- NOTE | 2020-12-19 05:39 | PCM.PN.INT ---
Assessment & Plan Assessment/Plan (1) Acute hyponatremia: PLAN: RECOMMENDATIONS: 1. Obtain stat CT head. Transfer patient back to ICU setting. 2. Obtain chest x-ray to confirm endotracheal tube placement. 3. Arterial blood gas now. 4. Obtain repeat EKG. 5. Amiodarone bolus and drip. 6. Check TSH, ammonia and troponin. 7. Given our limited neurological capabilities here and inability to obtain MRI, recommend transfer to a tertiary care facility. IMPRESSIONS: 1. Severe hyponatremia Improving. The patient's did confirm decreased p.o. intake and concurrent use of diuretics, likely contributing to his hyponatremia. Nephrology is currently following to assist with management. Continue to monitor sodium levels on a serial basis. Hold diuretics accordingly. 2. Acute respiratory failure The patient was emergently reintubated on the morning of December 19 after he became acutely nonresponsive. Unclear precipitating etiology. Will obtain repeat sputum culture. We will continue antimicrobials. Arterial blood gas will be obtained. Chest x-ray to confirm appropriate endotracheal tube placement. Wean FiO2 as tolerated. 3. Encephalopathy The patient became acutely nonresponsive on the morning of December 19 and was obtunded with sonorous respirations. Unclear etiology for his acute decompensation. Stat CT head has been ordered. Arterial blood gas will be obtained. Will check TSH and ammonia as well. However, given her limited neurologic capabilities here and inability to obtain MRI, I recommend that he be transferred to a tertiary care facility. 4. Atrial fibrillation with RVR The patient remains in atrial fibrillation this morning. He will receive an amiodarone bolus and be restarted on continuous infusion. Continue beta-moy as ordered. Troponin is pending. 5. Recent fall with cervical and thoracic spine injuries Continue current precautions. 6. Hypertension/GERD Complicates care, management, recovery and prognosis. Continue PPI therapy. CODE status: Discussed CODE status at length including difference between FULL code, DNR-CCA and DNR-CC status. Following discussions about the differences in these status, patient's requested FULL CODE STATUS. TIME: 45 minutes of critical care time, inclusive of procedures, was spent addressing the patient's acute encephalopathy, acute respiratory failure, hyponatremia, atrial fibrillation with RVR, review of all data and collaboration with the care team. ([id number]) Subjective Subjective The patient was seen and examined at the bedside this morning. Events from the last 24 hours have been reviewed. I did respond earlier this morning to a rapid response team. Per nursing report, the patient had been hallucinating overnight and remained in atrial fibrillation with a rapid ventricular rate. He developed an acute change in his mental status this morning. On my examination, the patient was obtunded with sonorous respirations. Therefore, he was emergently intubated. A stat CT head was ordered. Prior to this, the patient had been maintaining appropriate oxygen saturations on room air. He is currently documented to be overall net -2 L for the hospital admission. His sodium has increased to 129 this morning. Intubation Indication: Respiratory failure Consent was obtained from: Completed emergently The patient was placed in the appropriate sniffing position. Preoxygenated sedation via [id number] was provided for a minimum of 3 minutes. The patient had continuous cardiac as well as pulse oximetry monitoring during the procedure. Procedure sedation was provided by the administration of 20 mg of etomidate. Direct laryngoscopy was then performed using a number 4 MAC blade, which revealed a grade 1 view. A 7.5 mm endotracheal tube was visualized advancing between the cords to the level of 23 cm at the lip. The stylette was then removed and discarded. Tube placement was confirmed by fogging in the tube along with equal and bilateral breath sounds. Colorimetric change was visualized on the CO2 meter. The cuff was then inflated and the tube secured using a commercially available device. A good pulse oximetry waveform was seen on the monitor throughout the procedure. The patient tolerated the procedure well. Objective Data Objective Data The patient's most recent lab work, culture data and imaging studies have all been personally reviewed. Sputum culture has not demonstrated any growth to date. Vital Signs: Vital Signs Temp Pulse Resp BP Pulse Ox 98.1 F 122 H 18 128/89 H 98 12/19/20 04:00 12/19/20 04:00 12/19/20 04:00 12/19/20 04:00 12/19/20 04:00 Oxygen Flow Rate (L/min) 2 Oxygen Delivery Method Room Air Weight: 82.1 kg Body Mass Index (BMI) 28.3 Intake & Output: Intake and Output for Last 24 Hours 12/17/20 12/18/20 12/19/20 23:59 23:59 23:59 Intake Total 1160.88 / 1160.88 708.85 / 708.85 Output Total 1660 / 1660 930 / 930 Balance -499.12 / -499.12 -221.15 / -221.15 Lab / Micro Data Attestation: I reviewed the patient's lab results. Result Diagrams: 12/19/20 04:20 12/19/20 04:20 Labs: Laboratory Results - last 24 hr 12/19/20 04:20: WBC 7.6, RBC 4.01 L, Hgb 11.1 L, Hct 33.2 L, MCV 82.8, MCH 27.7, MCHC 33.4, RDW Std Deviation 46.9 H, RDW Coeff of Mejia 15.6 H, Plt Count 264, MPV 9.3, Immature Gran % (Auto) 0.800, Neut % (Auto) 80.6 H, Lymph % (Auto) 8.6 L, [place] % (Auto) 9.8, Eos % (Auto) 0.1, Baso % (Auto) 0.1, Absolute Neuts (auto) 6.1, Absolute Lymphs (auto) 0.65 L, Nucleated RBC % 0 12/19/20 04:20: Sodium 129 L, Potassium 4.1, Chloride 94 L, Carbon Dioxide 23.0, Anion Gap 12, BUN 22 H, Creatinine 0.63 L, Estim Creat Clear Calc 118.46, Est GFR (MDRD) Af Amer 165, Est GFR (MDRD) Non-Af 136, BUN/Creatinine Ratio 35.0 H, Glucose 122 H, Calcium 8.9, Total Bilirubin 0.90, AST 29, ALT 40, Alkaline Phosphatase 135 H, Total Protein 6.8, Albumin 2.9 L, Globulin 3.9, Albumin/Globulin Ratio 0.7 L Micro: Microbiology 12/16/20 07:50 Sputum, Expectorated/Coughed Gram Stain - Final 12/16/20 07:50 Sputum, Expectorated/Coughed Respiratory Culture - Preliminary Appears to be normal respiratory ana. Further studies to follow. Physical Exam Const Constitutional Narrative: Examination during rapid response revealed an obtunded patient nonresponsive to painful or tactile stimulation. Sonorous respirations present. Mottled lower extremities. The patient was in atrial fibrillation with RVR. HEENT normocephalic and head/scalp atraumatic Eyes PERRL and conjunctivae normal Neck supple General: trachea midline Resp Effort and Inspection: abnormal respiratory pattern and labored Auscultation: rhonchi and diminished lung sounds; Negative for rales or wheezes Cardio S1 normal heart sound and S2 normal heart sound Rate: tachycardic Rhythm: abnormal rhythm Heart Sounds: Negative for murmur GI normal to inspection, nondistended, normoactive bowel sounds Extremity no clubbing, cyanosis or edema Skin no rashes or lesions noted Neuro Neuro Narrative: Obtunded. Unable to perform neurological examination. Charges/Coding Procedures Hospitalists Procedures: [id number] Critial Care 1st Hr
--- NOTE | 2020-12-19 06:39 | CT_ITS ---
We are attempting to reach an attending provider to discuss findings. An addendum with communication details will be sent when the communication is complete. STUDY: CT BRAIN WITHOUT CONTRAST REASON FOR EXAM: Male, 65 years old. stroke RADIATION DOSAGE (If Supplied By Facility): CTDIvol = ( 44.99 ) mGy, DLP = ( 829.85 ) mGycm TECHNIQUE: Transaxial CT imaging of the brain was performed without administration of intravenous contrast material. Individualized dose optimization techniques were used for this CT. COMPARISON: 12/16/2020 FINDINGS: Normal soft tissue structures. Normal calvarium. Normal size ventricles and extra-axial spaces for the patient''s age. Normal white matter tracts of the cerebral hemispheres. Normal basal ganglia and thalami. Normal brainstem. Normal cerebellum. There is no intracranial hemorrhage. There are no findings of an acute ischemic infarction. There is bilateral maxillary, sphenoid and ethmoid sinus disease. Irregularity is noted in the C1 vertebral body partially visualized possibly representing fractures as previously reported. CT/Brain/Head without Contrast IMPRESSION: Irregularity is noted in the C1 vertebral body partially visualized possibly representing fractures as previously reported. Paranasal sinus disease. Endotracheal tube. Otherwise unremarkable CT brain without significant interval change. Electronically Signed: Nick Madden MD at 7:40 EDT Tel , Service support ,
--- NOTE | 2020-12-19 06:44 | RAD_ITS ---
STUDY: X-RAY CHEST REASON FOR EXAM: Male, 65 years old. TUBE PLACEMENT TECHNIQUE: Single frontal view of the chest COMPARISON: 12/16/2020 FINDINGS: An endotracheal tube is noted with tip above the brenda. A right-sided central venous catheter is noted with tip projecting over the SVC. There is questionable airspace disease at the right lung base, not as well noted on the prior study. Remainder of the lungs are clear. There is no demonstrated pleural abnormality. Normal size heart. Normal mediastinum and surendra. Normal visualized pulmonary arteries. Normal visualized aortic arch and descending thoracic aorta. Normal visualized thoracic spine. Normal visualized ribs, clavicles, and shoulders. There is no demonstrated abnormality of the visualized soft tissue structures of the upper abdomen. RAD/Chest 1 View IMPRESSION: Questionable airspace disease at the right lung base. Tubes and lines as described. Electronically Signed: Nick Madden MD at 8:24 EDT Tel , Service support ,
--- NOTE | 2020-12-19 06:52 | NURSING ---
CALLED TO UPDATE ABOUT STATUS
[2020-12-19 06:55] LABS: Bedside Glucose 141 mg/dL (70-110)
--- NOTE | 2020-12-19 07:23 | RAD_ITS ---
HISTORY: OG placement. TECHNIQUE: XR Abdomen 1 View. # of images incl. paperwork: 1. COMPARISON: None. FINDINGS: LINES/TUBES: Orogastric tube tip in the left mid abdomen. Endotracheal tube noted in the trachea. Right central venous catheter tip in the region of the superior vena cava. BOWEL GAS PATTERN: No dilated bowel loops. FREE AIR: Not assessed on supine view. LUNG BASES: Midline sternotomy and valve prosthesis. RAD/Abdomen Single View IMPRESSION: Orogastric tube tip in the left midabdomen. at [id number] Reported and signed by: Isabella Del Valle MD Electronically Signed: Isabella Del Valle MD at 9:07 EDT Tel , Service support ,
--- NOTE | 2020-12-19 07:37 | EKG12_ITS ---
Test Reason : ARRYTHMIA Blood Pressure : / mmHG Vent. Rate : 143 BPM Atrial Rate : 286 BPM P-R Int : 000 ms QRS Dur : 100 ms QT Int : 320 ms P-R-T Axes : 000 -51 003 degrees QTc Int : 493 ms Atrial flutter Left axis deviation Poor R wave progression Abnormal ECG Confirmed by SATHYA CABRERA, ROCAEL ([id number]), news video editor MELISSA HUMPHREYS ([id number]) on 12/23/2020 12:47:56 PM Referred By: JOSEMANUEL Confirmed By:ROCAEL MCDONNELL MD
[2020-12-19 07:56] LABS: Allen Test Positive; Base Excess -8 mmol/L (-2 to +2); Bicarbonate 16.6 mmol/L (22-26); Blood Gas Specimen Type ART; FI02 40; Mode AC; O2 Delivery Device Adult Vent; PEEP 5; PO2 88 mmHG (75-100); RR 14; SITE R Radial; SO2 97 % (95-99); Total Carbon Dioxide 17 mmol/L; Vt 450; pCO2 25.2 mmHg (35-45); pH 7.43 (7.35-7.45)
--- NOTE | 2020-12-19 08:02 | NURSING ---
0630- I was getting ready to walk into room to assess patient and give ordered Lopressor 5mg IV due to tachycardia, HR 140s-150s. I saw patient's HR drop from 150s to 50s on the central monitor and ran in to assess. Patient was unresponsive, diaphoretic, and agonally breathing. HR was 70s-90s, BP 114/54, sats mid 70s. 0635- MOVE COORDINATOR was called. Patient connected to stepdown monitor. Dr. Rodriguez, RT, and ICU RNs at bedside preparing to intubate patient. 0640- Etomidate 20mg IVP given, patient successfully intubated. ETT 7.5, 23cm @lip, bilateral breath sounds. Patient then prepared for transport for STAT Brain CT. 0655- Patient done with Brain CT and receiving Chest x-ray to confirm ETT placement. Preparing to transport to ICU 2. 0710- Patient being set up in ICU 2, bedside report given.
[2020-12-19] MEDS: Amiodarone 360 MG in Dextrose 5% Viaflo Bag 192.8 ML 33.3 MG CONT INF (08:25)
[2020-12-19 09:17] LABS: Thyroid Stim Hormone (TSH) 2.02 uIU/mL (0.358-3.74); Troponin-I HS 33.8 pg/mL (3.0-78.5)
[2020-12-19] MEDS: Alteplase 2 MG/2 ML Vial IV (10:02)
--- NOTE | 2020-12-19 10:04 | PCM.PN.REN ---
Subjective Subjective Patient was transferred to PCU yesterday. [employer] team was called this am. patient was hypoxic and tachycardic. Patient was reintubated this am. On amiodarone drip Cannot for ROS Objective Data Objective Data Vital Signs: Vital Signs Temp Pulse Resp BP Pulse Ox 98.1 F 111 H 15 84/61 L 100 12/19/20 04:00 12/19/20 08:25 12/19/20 08:25 12/19/20 08:25 12/19/20 08:25 Oxygen Flow Rate (L/min) 40 Oxygen Delivery Method Mechanical Ventilator Weight: 82.1 kg Body Mass Index (BMI) 28.3 Intake & Output: Intake and Output for Last 24 Hours 12/17/20 12/18/20 12/19/20 23:59 23:59 23:59 Intake Total 1160.88 / 1160.88 708.85 / 708.85 130 / 130 Output Total 1660 / 1660 930 / 930 Balance -499.12 / -499.12 -221.15 / -221.15 130 / 130 Lab / Micro Data Result Diagrams: 12/19/20 04:20 12/19/20 04:20 Labs: Laboratory Results - last 24 hr 12/19/20 04:20: WBC 7.6, RBC 4.01 L, Hgb 11.1 L, Hct 33.2 L, MCV 82.8, MCH 27.7, MCHC 33.4, RDW Std Deviation 46.9 H, RDW Coeff of Mejia 15.6 H, Plt Count 264, MPV 9.3, Immature Gran % (Auto) 0.800, Neut % (Auto) 80.6 H, Lymph % (Auto) 8.6 L, Hardeman % (Auto) 9.8, Eos % (Auto) 0.1, Baso % (Auto) 0.1, Absolute Neuts (auto) 6.1, Absolute Lymphs (auto) 0.65 L, Nucleated RBC % 0 12/19/20 04:20: Sodium 129 L, Potassium 4.1, Chloride 94 L, Carbon Dioxide 23.0, Anion Gap 12, BUN 22 H, Creatinine 0.63 L, Estim Creat Clear Calc 118.46, Est GFR (MDRD) Af Amer 165, Est GFR (MDRD) Non-Af 136, BUN/Creatinine Ratio 35.0 H, Glucose 122 H, Calcium 8.9, Total Bilirubin 0.90, AST 29, ALT 40, Alkaline Phosphatase 135 H, Total Protein 6.8, Albumin 2.9 L, Globulin 3.9, Albumin/Globulin Ratio 0.7 L 12/19/20 06:38: POC Glucose 141 H 12/19/20 08:30: Troponin I High Sens 33.8, TSH 2.02 12/19/20 08:30: Ammonia 46.0 H Micro: Microbiology 12/16/20 07:50 Sputum, Expectorated/Coughed Gram Stain - Final 12/16/20 07:50 Sputum, Expectorated/Coughed Respiratory Culture - Final ABG Data ABG results: ABG 12/19/20 07:50 Specimen Type ART Sample Site R Radial pH 7.43 Bicarbonate Actual 16.6 L Total CO2 17 Base Excess -8 L O2 Saturation 97 O2 % 40 ABG pCO2 25.2 L ABG pO2 88 Pasha Test Positive Respiration Rate 14 O2 Delivery Device Adult Vent Vent Mode AC Tidal Volume 450 POC PEEP 5 Radiography Diagnostic Testing: Radiology Impression Brain CT 12/19/20 06:39 IMPRESSION: Irregularity is noted in the C1 vertebral body partially visualized possibly representing fractures as previously reported. Paranasal sinus disease. Endotracheal tube. Otherwise unremarkable CT brain without significant interval change. Electronically Signed: Nick Madden MD at 7:40 EDT Tel , Service support , ADDENDUM: 12/19/20 0752 IMPRESSION: Irregularity is noted in the C1 vertebral body partially visualized possibly representing fractures as previously reported. Paranasal sinus disease. Endotracheal tube. Otherwise unremarkable CT brain without significant interval change. N.B. : The above Results were Read Back by Nick Madden MD to Rob [id number], DO, and understanding confirmed on 12/19/2020 07:45:42 (ET). Electronically Signed: Nick Madden MD at 7:40 EDT Tel , Service support , Chest X-Ray 12/19/20 06:44 IMPRESSION: Questionable airspace disease at the right lung base. Tubes and lines as described. Electronically Signed: Nick Madden MD at 8:24 EDT Tel , Service support , KUB X-Ray 12/19/20 07:23 IMPRESSION: Orogastric tube tip in the left midabdomen. at 0908 Reported and signed by: Isabella Del Valle MD Electronically Signed: Isabella Del Valle MD at 9:07 EDT Tel , Service support , Physical Exam Narrative General: intubated HEENT: Normocephalic, atraumatic. Mucous membranes moist. Heart: Normal S1, S2. tachy Lungs: Clear to auscultation anteriorly.on vent support Abdomen: Normal bowel sound, soft, nontender, no guarding or rebound. Extremity: No edema. rivera cath in place. No rash Assessment & Plan Assessment/Plan (1) Hyponatremia: PLAN: Hyponatremia is likely due to SIADH. Another possible cause of hyponatremia would be from use of hydrochlorothiazide which has been stopped. last 24 hrs Na correction rate is appropriate Patient Na today is 129 mmol/L Continue to monitor Na level daily. (2) Hypokalemia: PLAN: Hypokalemia was initially secondary to diuretic which the patient was taking for hypertension prior to admission. K level corrected with replacement Continue to monitor K level (3) HTN (hypertension): PLAN: BP was initially high. now low Only metoprolol. The patient's blood pressure will be monitored in ICU closely.
[2020-12-19] MEDS: Chlorhexidine 15 ML PO (10:26)
--- NOTE | 2020-12-19 11:39 | NURSING ---
Susan informed [facility] room #1050, consent given, called [facility] report given, awaiting transport
--- NOTE | 2020-12-19 12:39 | NURSING ---
informed transport here will be enroute to [facility]
--- NOTE | 2020-12-19 12:45 | DS.PCM_ITS ---
Providers Date of Admission: 12/15/20 Date of Discharge: 12/19/20 Primary Care Physician: Dr. Douglas Kathleen MD Consultations 12/15/20 18:20 Consult: Keeper Helper / Pulmonary Medicine Routine Consulting Provider: [facility] [place] Reason for Consult: hyponatremia EMERGENT Consult: No Notified: Yes Date Notified: 12/15/20 Time Notified: 16:58 Method of Notification: Text Consult: Nephrology Routine Consulting Provider: Tarik Olvera Reason for Consult: hyponatremia EMERGENT Consult: No Notified: Yes Date Notified: 12/15/20 Time Notified: 16:57 Method of Notification: Verbal Reason For Visit: HYPONATREMIA Diagnosis Discharge Diagnosis (1) Hyponatremia: Status: Acute Code(s): E87.1 - Hypo-osmolality and hyponatremia (2) Hypokalemia: Status: Acute Code(s): E87.6 - Hypokalemia (3) HTN (hypertension): Status: Chronic Code(s): I10 - Essential (primary) hypertension Plan: 1. Severe hyponatremia-etiology unclear #2 atrial flutter/fibrillation-new onset #3 elevated liver enzymes-etiology unclear #4 acute hypoxic respiratory failure-secondary to encephalopathy #5 recent cervical fractures of C1 and C2 #6 recent thoracic vertebrae burst fracture T6 #7 essential hypertension #8 sinusitis-present on admission #9 acute encephalopathy-etiology unclear Medications at Discharge Home Medications metoprolol tartrate 50 mg PO BID 12/19/17 acetaminophen [Tylenol Extra Strength] 500 mg PO Q6H PRN 12/15/20 hydrochlorothiazide 25 mg PO DAILY 12/15/20 omega-3 fatty acids [Fish Oil] 1,000 mg PO DAILY 12/15/20 omeprazole 20 mg PO QHS 12/15/20 tizanidine 4 mg PO QHS 12/15/20 Hospital Course Operations None Procedures 2-D Echocardiogram and Intubation Summary of Care Provided Minutes Spent on Discharge: 32 Hospital Course: This 65-year-old white male was seen in the emergency room at [facility] after being brought in by his due to the patient experiencing hallucinations at home, patient had been involved in a work-related accident 2 weeks prior and fell 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 Work-up in the emergency room revealed the patient's sodium to be extremely low at 108, patient was alert at the time of the examination and was appropriate and answered questions appropriately. Patient's EKG revealed him to be in atrial flutter with a 4 to 1 conduction. Patient was admitted to ICU, he was seen in consultation by nephrology and critical care, and ultimately was given hypertonic saline for sodium correction. During his time in the ICU, patient was found unresponsive early in the morning and was unable to be aroused, it was felt for airway protection he needed intubation who was intubated for a brief period of time over the next 24 hours. Patient was then extubated and was alert but had some mild confusion, sodium improved during his hospital stay and he was transferred to PCU for further care. Early on the morning of 12/19/2020, patient was again found unresponsive and was intubated emergently and transferred to the ICU. CT of the brain did not show any acute abnormality and it was recommended that the patient be transferred to tertiary care facility where in-house neurological consultation was available. I talked with the patient's about his medical care and the plan to transfer him, it was decided he would be transferred to [facility]. On 12/19/2020, patient was seen and examined:on examination he was sedated and on the ventilator. Vital signs as documented. Skin warm and dry and without overt rashes. Neck without JVD, trachea midline, thyroid was normal. Lungs clear bilaterally, normal air movement was noted. Heart exam notable for irregular rhythm-patient is in atrial fibrillation, normal sounds and absence of murmurs, rubs or gallops. Abdomen unremarkable and without evidence of organomegaly, masses, or abdominal aortic enlargement. Bowel sounds are present, abdomen is not distended. Extremities nonedematous, no cyanosis was noted, no clubbing was noted. Neuro: Patient is sedated and on the ventilator at this time. Psych: Patient is sedated on the ventilator at this time Patient was transferred to [facility] in stable condition on 12/19/2020. Weight / BMI Weight Weight: 82.1 kg Body Mass Index (BMI) 28.3 ABG / Lab / Microbiology Data Result Diagrams: 12/19/20 04:20 12/19/20 04:20 Laboratory: Laboratory Results - last 24 hr 12/19/20 04:20: WBC 7.6, RBC 4.01 L, Hgb 11.1 L, Hct 33.2 L, MCV 82.8, MCH 27.7, MCHC 33.4, RDW Std Deviation 46.9 H, RDW Coeff of Mejia 15.6 H, Plt Count 264, MPV 9.3, Immature Gran % (Auto) 0.800, Neut % (Auto) 80.6 H, Lymph % (Auto) 8.6 L, Peach % (Auto) 9.8, Eos % (Auto) 0.1, Baso % (Auto) 0.1, Absolute Neuts (auto) 6.1, Absolute Lymphs (auto) 0.65 L, Nucleated RBC % 0 12/19/20 04:20: Sodium 129 L, Potassium 4.1, Chloride 94 L, Carbon Dioxide 23.0, Anion Gap 12, BUN 22 H, Creatinine 0.63 L, Estim Creat Clear Calc 118.46, Est GFR (MDRD) Af Amer 165, Est GFR (MDRD) Non-Af 136, BUN/Creatinine Ratio 35.0 H, Glucose 122 H, Calcium 8.9, Total Bilirubin 0.90, AST 29, ALT 40, Alkaline Phosphatase 135 H, Total Protein 6.8, Albumin 2.9 L, Globulin 3.9, Albumin/Globulin Ratio 0.7 L 12/19/20 06:38: POC Glucose 141 H 12/19/20 08:30: Troponin I High Sens 33.8, TSH 2.02 12/19/20 08:30: Ammonia 46.0 H Microbiology: Microbiology 12/19/20 07:15 Sputum, Induced/Lukens Gram Stain - Final 12/16/20 07:50 Sputum, Expectorated/Coughed Gram Stain - Final 12/16/20 07:50 Sputum, Expectorated/Coughed Respiratory Culture - Final ABG: ABG 12/19/20 07:50 Specimen Type ART Sample Site R Radial pH 7.43 Bicarbonate Actual 16.6 L Total CO2 17 Base Excess -8 L O2 Saturation 97 O2 % 40 ABG pCO2 25.2 L ABG pO2 88 Pasha Test Positive Respiration Rate 14 O2 Delivery Device Adult Vent Vent Mode AC Tidal Volume 450 POC PEEP 5 Radiography Diagnostic Testing: Radiology Impression Brain CT 12/19/20 06:39 IMPRESSION: Irregularity is noted in the C1 vertebral body partially visualized possibly representing fractures as previously reported. Paranasal sinus disease. Endotracheal tube. Otherwise unremarkable CT brain without significant interval change. Electronically Signed: Nick Madden MD at 7:40 EDT Tel , Service support , ADDENDUM: 12/19/20 0752 IMPRESSION: Irregularity is noted in the C1 vertebral body partially visualized possibly representing fractures as previously reported. Paranasal sinus disease. Endotracheal tube. Otherwise unremarkable CT brain without significant interval change. N.B. : The above Results were Read Back by Nick Madden MD to Rob [id number], DO, and understanding confirmed on 12/19/2020 07:45:42 (ET). Electronically Signed: Nick Madden MD at 7:40 EDT Tel , Service support , Chest X-Ray 12/19/20 06:44 IMPRESSION: Questionable airspace disease at the right lung base. Tubes and lines as described. Electronically Signed: Nick Madden MD at 8:24 EDT Tel , Service support , KUB X-Ray 12/19/20 07:23 IMPRESSION: Orogastric tube tip in the left midabdomen. at 0908 Reported and signed by: Isabella Del Valle MD Electronically Signed: Isabella Del Valle MD at 9:07 EDT Tel , Service support , Meaningful Use Info Meaningful Use Diagnoses (Choose all that apply): None applicable Discharge Plan Admission Admit Date/Time: 12/15/20 17:00 Attending Provider: Jimenez Gallo Primary Care Provider: Douglas Kathleen Consulting Providers: Yuniel Alatorre ; Rob Rdoriguez ; Marisol Singh NP ; Tarik Olvera Discharge Orders/Prescriptions Prescriptions: No Action metoprolol tartrate 50 MG tablet 50 mg PO BID RF: 0 tizanidine 4 mg tablet 4 mg PO QHS RF: 0 hydrochlorothiazide 25 mg tablet 25 mg PO DAILY RF: 0 omeprazole 20 mg capsule,delayed release(DR/EC) 20 mg PO QHS RF: 0 acetaminophen [Tylenol Extra Strength] 500 mg Capsule 500 mg PO Q6H PRN (Reason: Pain) RF: 0 Fish Oil Capsule 1,000 mg PO DAILY RF: 0 Referrals / Follow Up: Douglas Kathleen MD [Primary Care Provider] - Disposition Discharge Orders: Discharge Patient (Routine); Ordered 12/19/20 Ordered By: Dr. Jimenez Gallo Charges/Coding Visit Charges Inpatient E&M: 89939 Disch Hosp
== END 2020-12-19 13:40 | disposition other institution (70) | DRG 640 ==
LOC: ED 16:05 → ICU 17:10 → PCU 12-18 15:47 → ICU 12-19 11:28
PROVIDERS: Internal Medicine Critical Care Medicine; Internal Medicine Nephrology; Pediatrics Pediatric Nephrology; Admitting Provider Internal Medicine; Emergency Provider Emergency Medicine; PCP Family Medicine; Visit Provider Internal Medicine
DX: E87.1 Hypo-osmolality and hyponatremia (principal); J96.01 Acute respiratory failure with hypoxia; S12.001A Unspecified nondisplaced fracture of first cervical vertebra, initial encounter for closed fracture; S12.101A Unspecified nondisplaced fracture of second cervical vertebra, initial encounter for closed fracture; S22.051A Stable burst fracture of T5-T6 vertebra, initial encounter for closed fracture; I48.92 Unspecified atrial flutter; G93.40 Encephalopathy, unspecified; W17.89XA Other fall from one level to another, initial encounter; Y99.0 Civilian activity done for income or pay; I48.91 Unspecified atrial fibrillation; R94.5 Abnormal results of liver function studies; I10 Essential (primary) hypertension; J32.0 Chronic maxillary sinusitis; J32.2 Chronic ethmoidal sinusitis; E87.6 Hypokalemia; I95.9 Hypotension, unspecified; K21.9 Gastro-esophageal reflux disease without esophagitis; Z95.2 Presence of prosthetic heart valve; Z79.899 Other long term (current) drug therapy
CPT/HCPCS: 31500; 31720; 36569; 36600; 51702; 70450; 71045; 72125; 74018; 80048; 80053; 80069; 80307; 81001; 82077; 82140; 82533; 82550; 82803; 82962; 83735; 83930; 83935; 84100; 84295; 84300; 84443; 84478; 84484; 85025; 87070; 87077; 87205; 92523; 93005; 93306; 94002; 94003; 97110; 97162; 97163; 97167; 97530; 97535; 97802; 99251; 99285; J2997; J7030; J7040; J7050; Q9957; A4216; C8929; G0463; J1940; J3010; J3490

== ENCOUNTER → 2021-02-19 13:43 | Outpatient (CLI) | payer OTHER, SELFPAY ==
--- NOTE | 2021-02-19 13:47 | CT_ITS ---
We are attempting to reach an attending provider to discuss findings. An addendum with communication details will be sent when the communication is complete. STUDY: CT CERVICAL SPINE WITHOUT CONTRAST REASON FOR EXAM: Male, 65 years old. FX CERV CERTEBRA/TYPE II TRAUM SPONDYLOLYSIS OF 2ND VERT RADIATION DOSAGE (If Supplied By Facility): CTDIvol = ( 23.12 ) mGy, DLP = ( 544.34 ) mGycm TECHNIQUE: High resolution transaxial imaging was performed without contrast material. Sagittal and coronal images were reconstructed. Individualized dose optimization techniques were used for this CT. COMPARISON: 12/16/2020 FINDINGS: Normal craniovertebral junction. Normal anterior atlantoaxial articulation. Increased distraction and lordosis of the type II dens fracture. Normal cervical lordosis. No change in the distracted oblique fracture of the anterior ring of the C1 vertebral body. Interval cortication of the ununited fractures of the lamina of the C1 vertebra. Findings are consistent with a Gianluca fracture. Interval distraction and cortication of the fracture through the spinous process of C2. Chronic corticated clement shoulders fracture of the C7 spinous process. C2-3: Mild right facet hypertrophy and uncovertebral hypertrophy produces mild right neural foraminal stenosis. No central spinal stenosis. C3-4: Moderate bilateral facet hypertrophy produces mild bilateral neural foraminal stenosis. 2 mm of anterolisthesis of C3 on C4. No central spinal stenosis. C4-5: Moderate right facet hypertrophy produces mild right neural foraminal stenosis. 2 mm of anterolisthesis of C4 on C5 with no central spinal stenosis. C5-6: Focal kyphosis but no spinal stenosis or neural foraminal stenosis. C6-7: Mild broad disc osteophyte complex and bilateral uncovertebral hypertrophy produces mild spinal stenosis and mild bilateral neural foraminal stenosis. C7-T1: Normal endplates. Normal disc height and morphology. Normal central canal and intervertebral neuroforamina. Normal visualized soft tissue structures. CT/Spine Cervical without Contras IMPRESSION: Increased distraction and lordosis of the type II dens fracture. Electronically Signed: Pérez Brambila MD at 15:16 EDT Tel , Service support ,
--- NOTE | 2021-02-19 13:47 | CT_ITS ---
STUDY: CT THORACIC SPINE WITHOUT CONTRAST REASON FOR EXAM: Male, 65 years old. WED COMPRESSION FX T5-T6/T9-10 RADIATION DOSAGE (If Supplied By Facility): CTDIvol = ( 36.07 ) mGy, DLP = ( 1362.41 ) mGycm TECHNIQUE: The patient was scanned in a multi detector CT scanner. High resolution imaging was performed. Images were obtained from C7 to L1. Sagittal and coronal images were reconstructed. Individualized dose optimization techniques were used for this CT. COMPARISON: CT of the cervical spine 12/16/2020 FINDINGS: Normal visualized cervical spine. Normal kyphosis of the thoracic spine. There is no substantial scoliosis. No change in the subacute mild compression fractures of the superior endplate of T1 and T3 without retropulsion into the spinal canal. Subacute moderate compression fracture of T5 with 2 mm retropulsion of the mid body into the spinal canal producing mild spinal stenosis. Subacute severe compression fracture of T6 with 2 mm retropulsion of the inferior endplate of the spinal canal producing mild spinal stenosis. Subacute moderate compression fracture of T10 without retropulsion into the spinal canal. Subacute mild compression fracture of T11 without retropulsion into the spinal canal. Normal disc spaces heights. The soft tissue structures are unremarkable. CT/Spine Thoracic without Contras IMPRESSION: Multiple subacute compression fractures of the thoracic spine as described above. Mild focal kyphosis and spinal stenosis at T6. Electronically Signed: Pérez Brambila MD at 16:30 EDT Tel , Service support ,
== END ==
PROVIDERS: PCP Family Medicine; Visit Provider Orthopaedic Surgery
DX: S12.000A Unspecified displaced fracture of first cervical vertebra, initial encounter for closed fracture (principal); S12.14XA Type III traumatic spondylolisthesis of second cervical vertebra, initial encounter for closed fracture; S22.050A Wedge compression fracture of T5-T6 vertebra, initial encounter for closed fracture; S22.070A Wedge compression fracture of T9-T10 vertebra, initial encounter for closed fracture; S32.048A Other fracture of fourth lumbar vertebra, initial encounter for closed fracture; X58.XXXA Exposure to other specified factors, initial encounter
CPT/HCPCS: 72125; 72128

== ENCOUNTER → 2021-03-11 06:24 | Outpatient (CLI) | payer BC, SELFPAY ==
--- NOTE | 2021-03-11 08:52 | STRESSREP ---
Stress Test Report Date: 03-11-2021 Procedure: Pharmacologic stress nuclear imaging study Indications: Atrial fibrillation; status post mitral valve repair; preoperative cardiovascular assessment Consent: Per the patient Procedure: The patient underwent pharmacologic (Regadenoson 0.4mg ) evaluation with a peak heart rate of 60 beats per minute (38%predicted maximal heart rate) and a peak blood pressure of 148/78 mmHg. The baseline ECG demonstrated sinus bradycardia. The peak pharmacologic ECG demonstrated no obvious ECG changes. There were no cardiac dysrhythmias pretest, during pharmacologic infusion, or recovery. There was no complaint of chest discomfort during pharmacologic infusion or recovery. The examination was discontinued secondary to completion of protocol. Impression: 1. Pharmacologic (Regadenoson) evaluation 2. Peak pharmacologic ECG with no obvious ECG changes. 3. There were no cardiac dysrhythmias pretest, during pharmacologic infusion, or recovery. 4. Nuclear images pending Myocardial perfusion imaging study: Technique: The patient was injected with 11.9 millicuries of technetium 99m Cardiolite and subsequently rest SPECT Cardiolite nuclear imaging was obtained in the horizontal long, vertical long, and short axis views. The patient underwent pharmacologic (Regadenoson) evaluation with a peak heart rate of 60 beats per minute (38% percent predicted maximal heart rate) and a peak blood pressure of 148/78 mmHg. The patient was injected with 33.7 millicuries of technetium 99m Cardiolite and subsequently stress SPECT Cardiolite nuclear imaging was obtained in the horizontal long, vertical long, and short axis views. A gated Cardiolite study at peak stress was obtained. Interpretation: Rest and stress SPECT Cardiolite nuclear imaging status post realignment, normalization, and attenuation correction demonstrate the appearance of body motion during image acquisition and otherwise the appearance of relative uniform tracer uptake and myocardial perfusion appearing within normal limits. There is end systolic thickening and brightening. The gated Cardiolite study demonstrates myocardial thickening and inward wall motion. The reported LVEF is 68%. Impression: 1. Rest and stress SPECT cardiac nuclear imaging demonstrate the appearance of body motion during image acquisition and otherwise, status post attenuation correction, the appearance of relative uniform tracer uptake and myocardial perfusion appearing within normal limits. 2. The gated Cardiolite study reports an LVEF of 68%. This note was generated with [employer] for [employer] software. It may contain incorrect words, spelling, and punctuation that were not noted in checking the note before signing.
== END ==
PROVIDERS: PCP Family Medicine; Referring Provider Internal Medicine Cardiovascular Disease; Visit Provider Internal Medicine Cardiovascular Disease
DX: Z01.810 Encounter for preprocedural cardiovascular examination (principal); I48.91 Unspecified atrial fibrillation; I48.92 Unspecified atrial flutter; I10 Essential (primary) hypertension
CPT/HCPCS: 78452; 93017; A9500; A4216; J2785

== ENCOUNTER 2021-04-27 13:49 | Inpatient (IN) | payer BC, SELFPAY ==
[2021-04-27 13:50] VITALS: BP 165/85; PULSE 62; RESP 18; TEMP 36.6; O2SAT 100; BMI 28.0
--- NOTE | 2021-04-27 14:22 | CT_ITS ---
We are attempting to reach an attending provider to discuss findings. An addendum with communication details will be sent when the communication is complete. STUDY: CT BRAIN WITHOUT CONTRAST REASON FOR EXAM: Male, 65 years old. confusion RADIATION DOSAGE (If Supplied By Facility): CTDIvol = ( ) mGy, DLP = ( ) mGycm TECHNIQUE: Transaxial CT imaging of the brain was performed without administration of intravenous contrast material. Individualized dose optimization techniques were used for this CT. COMPARISON: 12/19/2020 FINDINGS: There is cerebral atrophy with widening of the extra-axial spaces and ventricular dilatation. There are areas of decreased attenuation within the white matter tracts of the supratentorial brain, consistent with microvascular disease changes. There is a new hypodensity involving the medial temporal lobe/body of the hippocampus (axial image #16 series 2) There is no intracranial hemorrhage. There is severe paranasal sinus disease. CT/Brain/Head without Contrast IMPRESSION: New right temporal hypodensity . Differential considerations include acute/subacute infarction and underlying lesions. Further evaluation with contrast-enhanced MRI is recommended. Electronically Signed: Ramu Padron MD at 15:11 EST Tel , Service support ,
--- NOTE | 2021-04-27 14:22 | EKG12_ITS ---
Test Reason : NEURO Blood Pressure : / mmHG Vent. Rate : 059 BPM Atrial Rate : 059 BPM P-R Int : 202 ms QRS Dur : 096 ms QT Int : 446 ms P-R-T Axes : 030 -41 030 degrees QTc Int : 441 ms Sinus bradycardia Left axis deviation Left ventricular hypertrophy Abnormal ECG Confirmed by TERI CABRERA, ISHMAEL ([id number]), editor in chief newspaper MELISSA HUMPHREYS ([id number]) on 04/30/2021 7:10:50 AM Referred By: GHASSAN Confirmed By:ISHMAEL WILLIAMSON MD
--- NOTE | 2021-04-27 14:24 | EX.ED.DYSGE1 ---
HPI History of Present Illness Chief Complaint: Confusion Informant: patient and spouse/S.O. Onset/Context/Timing Onset: Today Narrative Narrative: Patient present secondary to increased confusion today. He has a history of similar with low sodium levels this past summer. This occurred after a trauma with multiple fractures in his back. Patient did have his sodium checked last Monday and it was 130. states this is about where he normally runs. This morning he was more confused about why he was not at work and what day it was. She states this is the first time he has had problems with confusion and just wanted to ensure that his electrolytes were not abnormal again. Patient denies fever or chills. No headache or chest pain. He does report a pinched nerve around his left hip that is been ongoing for the last 2 days. No recent medication changes. [facility] Medical History Burst fracture of lumbar vertebra C1 cervical fracture Essential hypertension Lumbar compression fracture Non-smoker Thoracic compression fracture Home Medications diltiazem HCl 240 mg capsule,extended release 24 hr 240 mg PO DAILY 03/02/21 [History Last Taken Unknown] folic acid 1 mg tablet 1 mg PO DAILY 03/02/21 [History Last Taken Unknown] multivitamin 1 tab PO DAILY 03/02/21 [History Last Taken Unknown] thiamine HCl (vitamin B1) 100 mg tablet 100 mg PO DAILY 03/02/21 [History Last Taken Unknown] ferrous sulfate 325 mg (65 mg iron) tablet 325 mg PO DAILY 03/04/21 [History Last Taken Unknown] omeprazole 20 mg capsule,delayed release 20 mg PO DAILY 03/04/21 [History Last Taken Unknown] vit C,E,zinc,copper-[id number] 250 mg-lutein 5 mg-zeaxanthin 1 mg capsule 1 cap PO DAILY 03/04/21 [History Last Taken Unknown] metoprolol tartrate 100 mg tablet 100 mg PO BID #60 tab 03/26/21 [Rx Last Taken Unknown] Allergy/AdvReac Type Severity Reaction Status Date / Time Penicillins Allergy Unknown Verified 04/27/21 13:53 ciprofloxacin [From Cipro] AdvReac Nausea/Vom/ Verified 04/27/21 13:53 Diarrhea Family History Father Valvular heart disease Surgical History History of mitral valve repair (~11/06/96) Social History Smoking Status: Never smoker Smokeless tobacco user: chewing tobacco alcohol intake: current substance use type: does not use caffeine: Yes Type: coffee Number of servings: 2 ROS ROS ED Constitutional Constitutional ED: Denies chills or fever(s) Eyes Eyes: Denies change in vision ENT ENT ED: Denies sore throat Cardiovascular Cardiovascular: Denies chest pain Respiratory/Chest Respiratory/Chest: Denies cough or dyspnea Gastrointestinal Gastrointestinal: Denies abdominal pain, diarrhea, nausea or vomiting Genitourinary Genitourinary ED: Denies dysuria Musculoskeletal Musculoskeletal: Reports other Details: Pinched nerve Integumentary Denies rash Neurologic Neurologic: Denies headache(s) or weakness Psychiatric Psychiatric: Denies anxiety or depression Allergic/Immunologic Allergic/Immunologic ED: Denies urticaria EXAM Physical Exam Const Vital Signs: 04/27/21 13:50 Temperature 97.9 F Temperature Source Temporal Pulse Rate 62 Respiratory Rate 18 Blood Pressure 165/85 H Blood Pressure Mean 111 Pulse Ox 100 Oxygen Delivery Method Room Air Positive well nourished and well developed General Appearance ED: well developed HEENT Reports normocephalic and head/scalp atraumatic Eyes PERRL and EOMs intact bilaterally Neck supple Chest Wall inspection of chest normal and palpation of chest normal Resp normal respiratory effort and clear to auscultation bilaterally Cardio regular rate and regular rhythm GI normal to inspection, nondistended, normoactive bowel sounds and non-tender Palpation: soft Back/Spine no CVA tenderness Extremity normal to inspection Neuro oriented x3 and no sensory deficits noted Sensorium / Orientation: alert Motor Exam: strength 5/5 throughout Psych mental status grossly normal Skin no rashes or lesions noted MDM MDM MDM Narrative Medical decision making narrative: Lab work ordered along with CT scan of the head. EKG obtained. Lab Data Attestation: I reviewed the patient's lab results. Labs: Laboratory Results - last 24 hr 04/27/21 04/27/21 04/27/21 14:35 14:35 14:35 WBC 6.8 RBC 4.70 Hgb 13.0 Hct 39.7 L MCV 84.5 MCH 27.7 MCHC 32.7 RDW Std Deviation 52.9 H RDW Coeff of Mejia 17.1 H Plt Count 247 MPV 9.4 Immature Gran % (Auto) 0.300 Neut % (Auto) 73.2 H Lymph % (Auto) 17.2 L [place] % (Auto) 8.4 Eos % (Auto) 0.6 Baso % (Auto) 0.3 Absolute Neuts (auto) 5.0 Absolute Lymphs (auto) 1.16 Nucleated RBC % 0 Sodium 131 L Potassium 4.2 Chloride 96 L Carbon Dioxide 26.0 Anion Gap 9 BUN 16 Creatinine 0.80 Estim Creat Clear Calc 93.28 Est GFR (MDRD) Af Amer 125 Est GFR (MDRD) Non-Af 103 BUN/Creatinine Ratio 20.0 Glucose 122 H Calcium 9.1 Magnesium 2.0 Total Bilirubin 0.50 Direct Bilirubin 0.16 AST 19 ALT 26 Alkaline Phosphatase 139 H Ammonia 22.0 Total Protein 8.1 Albumin 3.7 Globulin 4.4 H Urine Color Urine Clarity Urine pH Ur Specific [place] Urine Protein Urine Glucose (UA) Urine Ketones Urine Occult Blood Urine Nitrite Urine Bilirubin Urine Urobilinogen Ur Leukocyte Esterase Urine RBC Urine WBC Ur Squamous Epith Cells Urine Bacteria Urine Mucus 04/27/21 14:45 WBC RBC Hgb Hct MCV MCH MCHC RDW Std Deviation RDW Coeff of Mejia Plt Count MPV Immature Gran % (Auto) Neut % (Auto) Lymph % (Auto) [place] % (Auto) Eos % (Auto) Baso % (Auto) Absolute Neuts (auto) Absolute Lymphs (auto) Nucleated RBC % Sodium Potassium Chloride Carbon Dioxide Anion Gap BUN Creatinine Estim Creat Clear Calc Est GFR (MDRD) Af Amer Est GFR (MDRD) Non-Af BUN/Creatinine Ratio Glucose Calcium Magnesium Total Bilirubin Direct Bilirubin AST ALT Alkaline Phosphatase Ammonia Total Protein Albumin Globulin Urine Color Yellow Urine Clarity Sl. Cloudy Urine pH 7.0 Ur Specific [place] 1.010 Urine Protein Negative Urine Glucose (UA) Normal Urine Ketones Negative Urine Occult Blood Negative Urine Nitrite Negative Urine Bilirubin Negative Urine Urobilinogen Normal Ur Leukocyte Esterase Negative Urine RBC 0 SEEN Urine WBC 0 SEEN Ur Squamous Epith Cells 0-5 SEEN Urine Bacteria 0 SEEN Urine Mucus 0 SEEN Radiography Diagnostic Testing: Clinical Impression(s) from Imaging Studies Brain CT 04/27/21 14:22 IMPRESSION: New right temporal hypodensity . Differential considerations include acute/subacute infarction and underlying lesions. Further evaluation with contrast-enhanced MRI is recommended. Electronically Signed: Ramu Padron MD at 15:11 EST Tel , Service support , ADDENDUM: 04/27/21 1523 IMPRESSION: New right temporal hypodensity . Differential considerations include acute/subacute infarction and underlying lesions. Further evaluation with contrast-enhanced MRI is recommended. N.B. : The above Results were Read Back by Ramu Padron MD to Dr. Laney Payne MD, and understanding confirmed on 04/27/2021 15:16:47 (ET). Electronically Signed: Ramu Padron MD at 15:11 EST Tel , Service support , EKG Initial EKG: Attestation: I personally reviewed and interpreted this EKG as follows: Interpretation: Sinus Bradycardia (Sinus bradycardia at 59 bpm. No acute ischemia.) Treatment and Re-Evaluation Comments:: Lab work largely unremarkable. Sodium is 131 which is near the patient's baseline. Other electrolytes unremarkable. No sign of urinary infection. CT scan does reveal hypodensity in the right temporal region concerning for acute/subacute stroke. Test results discussed with patient and at bedside. I will speak with hospitalist regarding observation for full stroke work-up. Discharge Plan Triage Chief Complaint: Confusion ED Provider: Laney Payne Dx/Rx/DC Orders Clinical Impression: CVA (cerebral vascular accident) Prescriptions: No Action Ocuvite Adult 50 Plus 250-5-1 mg capsule 1 cap PO DAILY RF: 0 ferrous sulfate [FeroSul] 325 mg (65 mg iron) tablet 325 mg PO DAILY RF: 0 omeprazole 20 mg capsule,delayed release(DR/EC) 20 mg PO DAILY RF: 0 diltiazem HCl 240 mg capsule,extended release 24hr 240 mg PO DAILY RF: 0 folic acid 1 mg tablet 1 mg PO DAILY RF: 0 multivitamin Tablet 1 tab PO DAILY RF: 0 thiamine HCl (vitamin B1) 100 mg tablet 100 mg PO DAILY RF: 0 metoprolol tartrate 100 mg tablet 100 mg PO BID Qty: 60 RF: 11 Primary Care Provider: Douglas Kathleen Referrals: Douglas Kathleen MD [Primary Care Provider] - Disposition Disposition: Acute Care Hospital [facility]
[2021-04-27 14:54] LABS: Absolute Lymphocyte Count 1.16 X10^3/uL (0.83-4.51); Basophil# 0.02 X10^3/uL; Basophil% 0.3 % (0-1); Eosinophil# 0.04 X10^3/uL; Eosinophils% 0.6 % (0-5); Hematocrit 39.7 % (40-54); Lymphocyte # 1.16 X10^3/ul (0.83-4.51); Lymphocyte % 17.2 % (19-41); Mean Corp Hgb Conc 32.7 g/dL (32-36); Mean Corpuscular Hgb 27.7 pg (27.0-32.0); Mean Corpuscular Volume 84.5 fL (80-94); Mean Platelet Vol. 9.4 fl (6.2-12.0); Monocyte# 0.57 X10^3/uL; Monocyte% 8.4 % (0-10); NRBC Flagged by Analyzer 0 % (0-5); Neutrophil # 4.95 X10^3/uL (2.7-7.7); Neutrophil % 73.2 % (47-70); Platelet Count 247 K/mm3 (150-450); RBC Distribution Width CV 17.1 % (11.6-14.6); RBC Distribution Width SD 52.9 fl (35.1-43.9); White Blood Count 6.8 K/mm3 (4.4-11.0)
[2021-04-27 15:04] LABS: Bacteria 0 SEEN /hpf (None Seen); Mucous, Urine 0 SEEN /hpf (<or=2+); Red Blood Cells-Urine 0 SEEN /hpf (0-5); White Blood Cells 0 SEEN /hpf (0-5)
[2021-04-27 15:07] LABS: Color, Urine Yellow (Yellow); Glucose, Dipstick Normal (Normal); Ketone-Dipstick Negative (Negative); Leukocyte Esterase-Dipstick Negative /ul (Negative); Nitrite-Dipstick Negative (Negative); Occult Blood-Urine Negative /ul (Negative); Protein-Dipstick Negative (Negative); Urine Bilirubin Dipstick Negative (Negative); Urine Clarity Sl. Cloudy (Clear); Urine Urobilinogen Normal (Normal)
[2021-04-27 15:13] LABS: AST(SGOT) 19 U/L (15-37); Alanine Aminotransfer ALT/SGPT 26 U/L (16-61); Albumin, Serum 3.7 g/dL (3.2-5.0); Alkaline Phosphatase 139 U/L (45-117); Anion Gap 9 (5-15); BUN 16 mg/dL (7-18); Bilirubin, Direct 0.16 mg/dL (0.00-0.30); Calcium,Total 9.1 mg/dL (8.5-10.1); Chloride 96 mmol/L (98-107); EST Glomerular Filtration Rate 103 mL/min (>60); Est Glom Filt Rate - Afr Amer 125 mL/min (>60); Estimated Creatinine Clearance 93.28 ml/min; Globulin 4.4 g/dL (2.2-4.2); Glucose 122 mg/dL (74-106); Potassium 4.2 mmol/L (3.5-5.1); Protein, Total 8.1 g/dL (6.4-8.2); Sodium Level 131 mmol/L (136-145)
[2021-04-27 15:19] LABS: Squamous Epithelial Cells - UA 0-5 SEEN /hpf (0-5)
--- NOTE | 2021-04-27 15:37 | PCM.HP.STD ---
HPI - General General Date of Admission: 04/27/21 Date of Service: 04/27/21 Chief Complaint: Increased confusion. HPI Narrative The patient is a 65 y/o M w/ PMHx: Chew Tobacco, HTN, HLD, Chronic back pain, PAF, Valvular Heart Disease s/p MVR, Hx CVA, Chronic anemia/Fe deficiency, GERD who presents to the [facility] ED on 04/27/21 with history of onset of left primarily lower extremity paresthesias with no specific focal weakness over the last probable 72 hours with onset on day of presentation mild confusion primarily having difficulty answering some questions intermittently eventually prompting family to bring patient to the ED for evaluation. In the ED patient notes his left lower extremity paresthesias are mild a still able to function and do activities for himself. Work-up in the ED included T 97.9, heart rate 62, BP 165/85, respiratory rate 18, 100% on room air, CBC with WC 6.8, hemoglobin 13, platelet 247 without marked shift, CMP with sodium 131, chloride 96, glucose 122, magnesium 2.0, unremarkable hepatic profile aside alk phos 139, urinalysis unremarkable with no evidence of any infection, CT brain with new right temporal hypodensity possibly an acute versus subacute infarction or underlying lesion, EKG with sinus bradycardia with no acute evidence of ischemia. [facility] Medical History (Updated 04/27/21 @ 17:[address] Josy Armstrong MD) Burst fracture of lumbar vertebra C1 cervical fracture Essential hypertension Lumbar compression fracture Non-smoker Thoracic compression fracture Home Medications diltiazem HCl 240 mg capsule,extended release 24 hr 240 mg PO DAILY 03/02/21 [History Last Taken 04/27/21] folic acid 1 mg tablet 1 mg PO DAILY 03/02/21 [History Last Taken 04/27/21] multivitamin 1 tab PO DAILY 03/02/21 [History Last Taken 04/27/21] thiamine HCl (vitamin B1) 100 mg tablet 100 mg PO DAILY 03/02/21 [History Last Taken 04/27/21] ferrous sulfate 325 mg (65 mg iron) tablet 325 mg PO DAILY 03/04/21 [History Last Taken 04/27/21] omeprazole 20 mg capsule,delayed release 20 mg PO DAILY 03/04/21 [History Last Taken 04/26/21] vit C,E,zinc,copper-[id number] 250 mg-lutein 5 mg-zeaxanthin 1 mg capsule 1 cap PO DAILY 03/04/21 [History Last Taken 04/27/21] metoprolol tartrate 100 mg tablet 100 mg PO BID #60 tab 03/26/21 [Rx Last Taken 04/27/21] Allergy/AdvReac Type Severity Reaction Status Date / Time Penicillins Allergy Unknown Verified 04/27/21 13:53 ciprofloxacin [From Cipro] AdvReac Nausea/Vom/ Verified 04/27/21 13:53 Diarrhea Family History (Updated 04/27/21 @ 17:[address] Josy Armstrong MD) Father Valvular heart disease Heart disease Mother Heart disease Surgical History (Updated 04/27/21 @ 17:[address] Josy Armstrong MD) History of back surgery History of mitral valve repair (~11/06/96) Social History (Updated 04/27/21 @ 17:[address] Josy Armstrong MD) household members: spouse Smoking Status: Never smoker Smokeless tobacco user: chewing tobacco alcohol intake: current alcohol intake frequency: a few times a week substance use type: does not use caffeine: Yes Type: coffee Number of servings: 2 ROS ROS Narrative Admission Review of Systems: CONSTITUTIONAL: No weight loss, fever, chills, + weakness or fatigue. HEENT: Eyes: No visual loss, blurred vision, double vision or yellow sclerae. Ears, Nose, Throat: No hearing loss, sneezing, congestion, runny nose or sore throat. SKIN: No rash or itching, lesions, wounds. CARDIOVASCULAR: No chest pain, chest pressure or chest discomfort, palpitations, edema, orthopnea, syncopal events. RESPIRATORY: No shortness of breath, cough or sputum, wheezing, hemoptysis. GASTROINTESTINAL: No anorexia, nausea, vomiting or diarrhea, abdominal pain, melena, BRBPR. GENITOURINARY: No dysuria, frequency, urgency or retention. NEUROLOGICAL: + Confusion, LLE paresthesias, No headache, dizziness, syncope, paralysis, ataxia, focal weakness, change in bowel or bladder control, seizure. MUSCULOSKELETAL: + muscle, back pain, joint pain or stiffness. HEMATOLOGIC: No anemia, bleeding or bruising. LYMPHATICS: No enlarged nodes. No history of splenectomy. PSYCHIATRIC: No history of depression or anxiety. ENDOCRINOLOGIC: No reports of sweating, cold or heat intolerance. No polyuria or polydipsia. ALLERGIES: No history of asthma, hives, eczema or rhinitis. Vital Signs Vital Signs Vital Signs: 04/27/21 13:50 Temperature 97.9 F Temperature Source Temporal Pulse Rate 62 Respiratory Rate 18 Blood Pressure 165/85 H Blood Pressure Mean 111 Pulse Ox 100 Oxygen Delivery Method Room Air Weight Weight: 190 lb Body Mass Index (BMI) 28.0 Physical Exam Narrative Physical Examination: General: Awake, alert, oriented to self, place and some recent events, but slow to respond and reports several examples of confusion, remains cooperative, seated upright in bed in no apparent distress. Skin: Normal color, normal turgor, no icterus, no cyanosis, cervical incision with some scabbing at the top with unfortunate history of picking per discussion with patient but no obvious infection. HEENT: AT/NC, EOMI, PERRLA, MMM, no carotid bruits or JVD noted. Lungs: CTA bilaterally, moderate effort, mild decrease BL bases, no rales, ronchi or wheezing. Heart: Regular rate and rhythm; no gallop, rub audible. Abdomen: Soft, overweight, NTTP, ND, normal BS, no HSM. Extremities: No cyanosis, clubbing, or edema. Neurological: Patient awake, alert, oriented as noted, cognitive function intact; pupils equally reactive to light and accommodation, cranial nerves II-XII grossly normal, moving all 4 extremities, no focal deficits, strength preserved, left lower extremity mild sensation decreased, FTN and HTS appropriate, equivocal Babinski. Psychiatric: Affect appears mildly fatigued otherwise normal, no acute evidence of depressive or anxiety feelings. Results Lab / Micro Data Result Diagrams: 04/27/21 14:35 04/27/21 14:35 Labs: Laboratory Results - last 24 hr 04/27/21 14:35: WBC 6.8, RBC 4.70, Hgb 13.0, Hct 39.7 L, MCV 84.5, MCH 27.7, MCHC 32.7, RDW Std Deviation 52.9 H, RDW Coeff of Mejia 17.1 H, Plt Count 247, MPV 9.4, Immature Gran % (Auto) 0.300, Neut % (Auto) 73.2 H, Lymph % (Auto) 17.2 L, [place] % (Auto) 8.4, Eos % (Auto) 0.6, Baso % (Auto) 0.3, Absolute Neuts (auto) 5.0, Absolute Lymphs (auto) 1.16, Nucleated RBC % 0 04/27/21 14:35: Sodium 131 L, Potassium 4.2, Chloride 96 L, Carbon Dioxide 26.0, Anion Gap 9, BUN 16, Creatinine 0.80, Estim Creat Clear Calc 93.28, Est GFR (MDRD) Af Amer 125, Est GFR (MDRD) Non-Af 103, BUN/Creatinine Ratio 20.0, Glucose 122 H, Calcium 9.1, Magnesium 2.0, Total Bilirubin 0.50, Direct Bilirubin 0.16, AST 19, ALT 26, Alkaline Phosphatase 139 H, Total Protein 8.1, Albumin 3.7, Globulin 4.4 H 04/27/21 14:35: Ammonia 22.0 04/27/21 14:45: Urine Color Yellow, Urine Clarity Sl. Cloudy, Urine pH 7.0, Ur Specific [place] 1.010, Urine Protein Negative, Urine Glucose (UA) Normal, Urine Ketones Negative, Urine Occult Blood Negative, Urine Nitrite Negative, Urine Bilirubin Negative, Urine Urobilinogen Normal, Ur Leukocyte Esterase Negative, Urine RBC 0 SEEN, Urine WBC 0 SEEN, Ur Squamous Epith Cells 0-5 SEEN, Urine Bacteria 0 SEEN, Urine Mucus 0 SEEN Radiology Impression Brain CT 04/27/21 14:22 IMPRESSION: New right temporal hypodensity . Differential considerations include acute/subacute infarction and underlying lesions. Further evaluation with contrast-enhanced MRI is recommended. Electronically Signed: Ramu Padron MD at 15:11 EST Tel , Service support , ADDENDUM: 04/27/21 1523 IMPRESSION: New right temporal hypodensity . Differential considerations include acute/subacute infarction and underlying lesions. Further evaluation with contrast-enhanced MRI is recommended. N.B. : The above Results were Read Back by Ramu Padron MD to Dr. Laney Payne MD, and understanding confirmed on 04/27/2021 15:16:47 (ET). Electronically Signed: Ramu Padron MD at 15:11 EST Tel , Service support , Assessment & Plan Assessment/Plan (1) CVA (cerebral vascular accident): QUALIFIERS: CVA mechanism: unspecified Qualified Code(s): I63.9 - Cerebral infarction, unspecified PLAN: The patient is a 65 y/o M w/ PMHx: Chew Tobacco, HTN, HLD, Chronic back pain, PAF, Valvular Heart Disease s/p MVR, Hx CVA, Chronic anemia/Fe deficiency, GERD who presents to the [facility] ED on 04/27/21 with history of onset of left primarily lower extremity paresthesias with no specific focal weakness over the last probable 72 hours with onset on day of presentation mild confusion primarily having difficulty answering some questions intermittently eventually prompting family to bring patient to the ED for evaluation. #1. Encephalopathy, acute in addition to left lower extremity paresthesias concerning for Possible Acute/Subacute CVA versus Underlying Lesion: Will admit to PCU, will obtain MRI Brain, MRA Head and Neck, will defer ECHO as recently performed 12/15/2020 with contrast at that time, PT/OT/Speech/Nutrition evaluation per protocol. Will allow permissive HTN, maintain on asa, add statin w/ AM FLP, fall precautions. Magnesium 2.0. Will obtain TSH, hemoglobin A1c. Given PAF history as noted we will hold on immediate anticoagulation pending MRI if concern for possible mass and to assure no hemorrhagic conversion. #2. Hypertension: Given #1 we will maintain permissive hypertension pending MRI brain, as needed agents. #3. Hyperlipidemia: Not on regimen, FLP in a.m., add statin given #1 #4. PAF: Holding patient diltiazem and metoprolol given permissive hypertension, not anticoagulated and given presentation will hold on immediate anticoagulation for risk of hemorrhagic conversion pending MRI. #5. Valvular heart disease: 12/15/2020 echocardiogram with normal LV size, normal LV systolic function, EF 60%, moderate concentric LVH, annuloplasty ring in the mitral position, contrast injection was performed at that time. #6. Chronic back pain with recent trauma: History of trauma with several fractures including C1-2 as well as thoracic Fx, followed with Dr. Chisholm, encourage positional changes, fall precautions, patient does have cervical hardware therefore MRI may be somewhat limited. #7. Chew Tobacco Abuse: Encouraged cessation, NR if desired. #8. GERD: We will maintain on PPI. #9. DVT prophylaxis: SCDs, will hold on chemoprophylaxis pending MRI brain in case it is underlying lesion. #10. CODE status: Patient JAYA is his who is present and living will is currently in place. Discussed CODE status at length including difference between FULL code, DNR-CCA and DNR-CC status. Following discussions about the differences in these status, requested Full Code status although he and his have discussed at length given recent trauma with cervical significant surgery with hardware with several intubations. Advanced Care Planning Face to Face Time: 16 minutes. Charges/Coding Visit Charges OBSV E&M: 60947 Initial observation care L3 Procedures Hospitalists Procedures: 22992 Advncd Care Plan 30 Min
[2021-04-27 16:02] VITALS: BP 165/85; PULSE 62; RESP 18; TEMP 36.6; O2SAT 100
[2021-04-27 16:43] VITALS: BMI 28.3
[2021-04-27 16:44] VITALS: BP 170/81; PULSE 64; RESP 16; TEMP 36.7; O2SAT 100
[2021-04-27 17:00] VITALS: BMI 28.3
--- NOTE | 2021-04-27 17:03 | PCS.PANDOC ---
PANDEMIC DOCUMENTATION INITIATED: Date: 01/18/2021 Time: 190
[2021-04-27 17:24] VITALS: PULSE 64
[2021-04-27 19:00] VITALS: PULSE 66
[2021-04-27] MEDS: Pantoprazole Sodium 20 MG Tablet PO (19:01)
[2021-04-27 21:15] VITALS: BP 152/79; PULSE 65; RESP 18; TEMP 36.9; O2SAT 97
[2021-04-28] VITALS (14 sets, daily range): BP systolic 131–176; BP diastolic 85–109; PULSE 63–98; RESP 18; TEMP 36.6–36.9; O2SAT 95–100; BMI 28.3
[2021-04-28 06:29] LABS: Absolute Lymphocyte Count 1.31 X10^3/uL (0.83-4.51); Absolute Neutrophil Count 3.4 X10^3/uL (2.0-7.7); Basophil# 0.02 X10^3/uL; Basophil% 0.4 % (0-1); Eosinophil# 0.07 X10^3/uL; Eosinophils% 1.3 % (0-5); Hematocrit 36.3 % (40-54); Hemoglobin 11.8 g/dL (13.0-16.5); Lymphocyte # 1.31 X10^3/ul (0.83-4.51); Lymphocyte % 24.3 % (19-41); Mean Corp Hgb Conc 32.5 g/dL (32-36); Mean Corpuscular Hgb 27.5 pg (27.0-32.0); Mean Corpuscular Volume 84.6 fL (80-94); Mean Platelet Vol. 9.4 fl (6.2-12.0); Monocyte# 0.61 X10^3/uL; Monocyte% 11.3 % (0-10); NRBC Flagged by Analyzer 0 % (0-5); Neutrophil # 3.36 X10^3/uL (2.7-7.7); Neutrophil % 62.3 % (47-70); Platelet Count 211 K/mm3 (150-450); RBC Distribution Width CV 17.3 % (11.6-14.6); RBC Distribution Width SD 53.5 fl (35.1-43.9); Red Blood Count 4.29 M/mm3 (4.6-6.2); White Blood Count 5.4 K/mm3 (4.4-11.0)
[2021-04-28 07:04] LABS: ALB/GLOB Ratio 0.8 RATIO (0.9-2.4); AST(SGOT) 19 U/L (15-37); Alanine Aminotransfer ALT/SGPT 21 U/L (16-61); Albumin, Serum 3.2 g/dL (3.2-5.0); Alkaline Phosphatase 118 U/L (45-117); Anion Gap 10 (5-15); BUN 12 mg/dL (7-18); BUN/Creat Ratio 15.9 RATIO (10-20); Calcium,Total 9.1 mg/dL (8.5-10.1); Chloride 98 mmol/L (98-107); Cholesterol 121 mg/dL (200); Creatinine, Serum 0.75 mg/dL (0.70-1.30); EST Glomerular Filtration Rate 111 mL/min (>60); Est Glom Filt Rate - Afr Amer 134 mL/min (>60); Estimated Creatinine Clearance 96.27 ml/min; Glucose 99 mg/dL (74-106); High Density Lipoprotein 33 mg/dL; Protein, Total 7.2 g/dL (6.4-8.2); Sodium Level 132 mmol/L (136-145); Thyroid Stim Hormone (TSH) 1.43 uIU/mL (0.358-3.74); Triglycerides 140 mg/dL; Very Low Density Lipoprotein 28 mg/dL (5-40)
--- NOTE | 2021-04-28 09:00 | MRI_ITS ---
STUDY: MRA NECK WITH AND WITHOUT CONTRAST REASON FOR EXAM: Male, 65 years old. CVA, CONFUSION, F/U CT BRAIN TECHNIQUE: 3-D jhpt-zj-rhzkre (TOF) imaging was performed in an 1.5 T MRI scanner. 17ML IV DOTAREM was administered for the contrast enhanced images. COMPARISON: None. FINDINGS: RIGHT CAROTID ARTERIES: Antegrade flow within the right common carotid artery (CCA). There is moderate atherosclerotic plaque formation with moderate narrowing of the carotid bulb. There is extensive atherosclerotic plaque formation of the origin of the right internal carotid artery with an estimated stenosis of greater than 70%. Antegrade flow within the visualized cervical portion of the right internal carotid artery. LEFT CAROTID ARTERIES: Antegrade flow within the left common carotid artery (CCA). Antegrade flow within the left common carotid bulb. There is mild atherosclerotic plaque formation of the origin of the left internal carotid artery with less than 50% cross sectional diameter stenosis. Antegrade flow within the visualized cervical portion of the left internal carotid artery. VERTEBRAL ARTERIES: Antegrade flow within the bilateral vertebral artery. MRI/MRA Neck WITH and W/O Contrast IMPRESSION: Greater than 70% stenosis of the right ICA. Further evaluation with CTA or sonography can be obtained. Electronically Signed: Ramu Padron MD at 11:53 EST Tel , Service support ,
--- NOTE | 2021-04-28 09:00 | MRI_ITS ---
We are attempting to reach an attending provider to discuss findings. An addendum with communication details will be sent when the communication is complete. STUDY: MRI BRAIN WITH AND WITHOUT CONTRAST REASON FOR EXAM: Male, 65 years old. CVA, CONFUSION, F/U CT BRAIN TECHNIQUE: Standardized multiplanar fat and water weighted pulse sequences were obtained. 17ML IV DOTAREM was administered for the contrast portion of the examination. COMPARISON: 04/27/2021 CT of the head FINDINGS: There is approximately 3 cm area of restricted diffusion involving the right hippocampus body and right posterior thalamus with drop of signal on ADC map, consistent with acute infarctions. Findings correspond to the hypodensity seen on the prior CT. There is no enhancement to suggest lesion. There is mild cerebral atrophy with widening of the extra-axial spaces and ventricular dilatation. There are a limited number of small white matter hyperintensities, distributed throughout the deep white matter tracts of the cerebral hemispheres, consistent with mild chronic white matter ischemic changes. Normal bilateral basal ganglia. There is no extra-axial fluid accumulation. There is no enhancing intra-axial or extra-axial abnormality. Normal sella turcica, pituitary gland, infundibular stalk, optic chiasm and hypothalamus. Normal tectal plate and pineal gland. Normal midbrain, blanquita and medulla. Normal cerebellum. Normal basal cisterns. Severe paranasal sinus disease is noted. MRI/Brain W/WO Contrast IMPRESSION: Acute right temporal and thalamic infarct. Electronically Signed: Ramu Padron MD at 11:39 EST Tel , Service support ,
--- NOTE | 2021-04-28 09:00 | MRI_ITS ---
STUDY: MRA OF THE HEAD WITHOUT CONTRAST REASON FOR EXAM: Male, 65 years old. CVA, CONFUSION, F/U CT BRAIN. CVA, CONFUSION, F/U CT BRAIN TECHNIQUE: 3-D dafj-uw-vaaker (TOF) imaging was performed with MIPs. The study was performed unenhanced. COMPARISON: None. FINDINGS: Patent right cavernous carotid artery. Patent left cavernous carotid artery. Patent right A1 segments of the anterior cerebral artery. Patent left A1 segments of the anterior cerebral artery. Unremarkable anterior communicating artery (ACOM) region. Normal bilateral A2 segments of the anterior cerebral arteries. Patent right M1 and M2 segments of the middle cerebral arteries, with a unremarkable M1 bifurcation. Patent left M1 and M2 segments of the middle cerebral arteries, with a unremarkable M1 bifurcation. There is non-visualization of the right posterior communicating artery (PCOM). There is non-visualization of the left posterior communicating artery (PCOM). Patent basilar artery with a normal basilar bifurcation. There is irregularity of the P2 segment of the right posterior cerebral artery with decreased caliber of distal P2 and P3 branches. MRI/MRA Head ONLY without Contrast IMPRESSION: Severe stenosis of the right [employer]. Electronically Signed: Ramu Padron MD at 11:47 EST Tel , Service support ,
[2021-04-28] MEDS: Aspirin 81 MG TAB.CHEW PO (10:21)
[2021-04-28] MEDS: Ferrous Sulfate 325 MG Tablet PO (10:22)
[2021-04-28] MEDS: 0.9% Saline Lock 10 ML Syringe IV (10:22)
[2021-04-28] MEDS: Pantoprazole Sodium 20 MG Tablet PO (10:28)
--- NOTE | 2021-04-28 11:36 | PCM.DC ---
Discharge Instructions Diet Discharge Diet: No restrictions Activity Discharge Activity: Return to Normal Activity Weight Bearing Status: Weight bearing as tolerated Dressing / Incision Call your doctor if you observe: Fever of 101 or Higher, Numbness or Tingling, Shortness of breath, Dizziness, Chest pain, Increased palpitations (irregular heartbeat) and Calf discomfort Follow Up Care Please Follow Up With: Primary care provider When: Within the next two weeks. Test Results: Test results from this visit will be discussed in further detail at your follow-up appointment, if applicable. Discharge Plan Admission Admit Date/Time: 04/27/21 15:54 Primary Reason for Your Visit: Stroke like symptoms Attending Provider: Kulwinder Underwood Primary Care Provider: Douglas Kathleen Discharge Orders/Prescriptions Prescriptions: Continued Ocuvite Adult 50 Plus 250-5-1 mg capsule 1 cap PO DAILY RF: 0 ferrous sulfate [FeroSul] 325 mg (65 mg iron) tablet 325 mg PO DAILY RF: 0 omeprazole 20 mg capsule,delayed release(DR/EC) 20 mg PO DAILY RF: 0 diltiazem HCl 240 mg capsule,extended release 24hr 240 mg PO DAILY RF: 0 folic acid 1 mg tablet 1 mg PO DAILY RF: 0 multivitamin Tablet 1 tab PO DAILY RF: 0 thiamine HCl (vitamin B1) 100 mg tablet 100 mg PO DAILY RF: 0 metoprolol tartrate 100 mg tablet 100 mg PO BID Qty: 60 RF: 11 Referrals / Follow Up: Douglas Kathleen MD [Primary Care Provider] - Within 2 Weeks Disposition Disposition (needs filled in before D/C Order can be placed): Home, Self Care
--- NOTE | 2021-04-28 11:45 | TELEMED_ITS ---
SOC Telemed has confirmed receipt of a request for visit. This document confirms receipt of the order initiating the consult. To find the results of the consultation, please view the patient's reports for the scanned Telemed Consult.
--- NOTE | 2021-04-28 11:46 | ECHOCS_ITS ---
Reason For Study: TIA/CVA Limited for Bubble and EF only Procedure This was a limited 2D transthoracic echocardiogram. Bubble study performed, contrast injection performed. Exam performed portable in patient room. Left Ventricle Normal LV size. Left ventricular systolic function is normal. The estimated ejection fraction is 55 %. No regional wall motion abnormalities noted. Right Ventricle Normal RV size. Normal systolic function. Atria Normal left atrium. Normal right atrium. Bubble contrast study negative for right to left interatrial shunt. Pericardium/Pleural No pericardial effusion. MMode/2D Measurements & Calculations LVIDd: 4.8 cm IVSd: 1.1 cm LVIDs: 2.6 cm LVPWd: 1.2 cm FS: 46.2 % ECHO/Echo Complete W/ Contrast Interpretation Summary Normal LV size. Left ventricular systolic function is normal. The estimated ejection fraction is 55 %. Bubble contrast study negative for right to left interatrial shunt. Contrast injection was performed. Ordering Physician: Douglas Hernández Referring Physician: Douglas Kathleen Performed By: Rehan Prather RCS
--- NOTE | 2021-04-28 12:49 | CASEMGMT ---
SW completed a PHQ 9 with patient as he had a Stroke. He scored a 0 which indicates no depression. Patient feels he is doing well and declined any need for counseling resources or information on stroke support group. Sadie Simon SENIOR CONTROL SYSTEMS ENGINEER ROSA
[2021-04-28] MEDS: Atorvastatin Calcium 80 MG Tablet PO (14:26)
--- NOTE | 2021-04-28 14:30 | CASEMGMT ---
RN CM COMMUNITY DIETITIAN CM to room to meet with patient for initial transition planning/care coordination assessment. RN KSENIA introduced self and role at [facility]. Pt voices understanding and consents to assessment at this time. Pt standing up/ambulating in room in no distress at this time. Pt is A/O at this time and answers all questions appropriately. Care providers, pharmacy, and demographics verified/updated at this time. PCP: Dr Kathleen Specialists: Dr Patrice Bear @ [facility]. One-time visit to neurologist in [place]-does not remember name of MD. Has a f/u appt scheduled @ [facility] soon. Has surgicial f/u appt in [place] 05/17 Preferred Pharmacy: [facility] Insurance: [id number] Prescription Benefit: Yes Living Will/HPOA: HPOA is his LNOK: , Susan Living Arrangements: Lives w/his in 2-story home w/3 steps to enter. Independent prior to admission. Transportation: Pt states just recently started driving again a little. provides most transportation DME: Denies using any DME and denies needs. HHC/SNF: No hx of either. [facility] but that has been put on hold since surgery Pt wishes to return home and states has no concerns with going home at time of discharge. Pt voices no concerns/needs at this time. Advised pt to ask for CM if any questions/concerns/needs arise. Voices understanding. PLAN: Home w/spousal support and discharge plans in place. PT/OT evals pending. SOC c/s pending Lux MOULTON RN, CM
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
[2021-04-28] MEDS: Acetaminophen 325 MG Tablet 650 MG PO (19:47)
[2021-04-28] MEDS: guaiFENesin 10 ML UDC (200MG/10ML) 20 ML PO (19:47)
--- NOTE | 2021-04-28 22:49 | PN_ITS ---
Progress Note Discussed case with Dr. Espino tele [facility] neurologist who recommended that Eliquis be stopped and rather be started after 7 to 10 days after stroke. That is 7-10 days from 04/27/2021. Patient will be seeing advertising account representative on routine appointment Monday05-03-2021. Neurologist think that stroke is likely from thromboembolism from paroxysmal A. fib. Eliquis discontinued.
--- NOTE | 2021-04-28 22:49 | PCM.PN.BLA ---
Progress Note Discussed case with Dr. Espino tele [facility] neurologist who recommended that Eliquis be stopped and rather be started after 7 to 10 days after stroke. That is 7-10 days from 04/27/2021. Patient will be seeing stadium attendant on routine appointment Monday05-03-2021. Neurologist think that stroke is likely from thromboembolism from paroxysmal A. fib. Eliquis discontinued.
[2021-04-28] MEDS: Metoprolol Tartrate 100 MG Tablet PO (23:05)
[2021-04-29] VITALS (7 sets, daily range): BP systolic 136–162; BP diastolic 82–90; PULSE 57–77; RESP 16–18; TEMP 36.6–36.7; O2SAT 97–98; BMI 28.3
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
[2021-04-29] MEDS: Aspirin 81 MG TAB.CHEW PO (08:50)
[2021-04-29] MEDS: Pantoprazole Sodium 20 MG Tablet PO (08:50)
[2021-04-29] MEDS: Ferrous Sulfate 325 MG Tablet PO (08:50)
[2021-04-29] MEDS: Metoprolol Tartrate 100 MG Tablet PO (08:50)
[2021-04-29] MEDS: dilTIAZem CD 240 MG Capsule PO (08:50)
[2021-04-29] MEDS: Acetaminophen 325 MG Tablet 650 MG PO (08:53)
--- NOTE | 2021-04-29 12:58 | DS.PCM_ITS ---
Providers Date of Admission: 04/27/21 Primary Care Physician: Dr. Douglas Kathleen MD Reason For Visit: CVA Diagnosis Discharge Diagnosis (1) CVA (cerebral vascular accident): Status: Acute Code(s): I63.9 - Cerebral infarction, unspecified Qualifiers: CVA mechanism: unspecified Qualified Code(s): I63.9 - Cerebral infarction, unspecified Plan: DISCHARGE DIAGNOSES: #1. Encephalopathy, acute in addition to left lower extremity paresthesias secondary to acute right temporal and thalamic infarct #2. Hypertension #3. Hyperlipidemia #4. PAF #5. Valvular heart disease #6. Chronic back pain with recent trauma with several fractures including C1-2 as well as thoracic Fx, followed with Dr. Chisholm #7. Chew Tobacco Abuse #8. GERD Medications at Discharge Home Medications diltiazem HCl 240 mg capsule,extended release 24 hr 240 mg PO DAILY 03/02/21 folic acid 1 mg tablet 1 mg PO DAILY 03/02/21 multivitamin 1 tab PO DAILY 03/02/21 thiamine HCl (vitamin B1) 100 mg tablet 100 mg PO DAILY 03/02/21 ferrous sulfate 325 mg (65 mg iron) tablet 325 mg PO DAILY 03/04/21 omeprazole 20 mg capsule,delayed release 20 mg PO DAILY 03/04/21 vit C,E,zinc,copper-[id number] 250 mg-lutein 5 mg-zeaxanthin 1 mg capsule 1 cap PO DAILY 03/04/21 metoprolol tartrate 100 mg tablet 100 mg PO BID #60 tab 03/26/21 apixaban [Eliquis] 5 mg PO BID #74 tab 04/29/21 aspirin 81 mg PO BREAKFAST 30 Days #30 tab 04/29/21 atorvastatin 80 mg PO QHS 30 Days #30 tab 04/29/21 Hospital Course Operations None Procedures 2-D Echocardiogram and EKG Summary of Care Provided Minutes Spent on Discharge: 35 Hospital Course: The patient is a 65 y/o M w/ PMHx: Chew Tobacco, HTN, HLD, Chronic back pain, PAF, Valvular Heart Disease s/p MVR, Hx CVA, Chronic anemia/Fe deficiency, GERD who presented to the [facility] ED on 04/27/21 with history of onset of left primarily lower extremity paresthesias with no specific focal weakness over the last probable 72 hours with onset on day of presentation mild confusion primarily having difficulty answering some questions intermittently eventually prompting family to bring patient to the ED for evaluation. Patient admitted to the PCU, Will admit to PCU, MRI of the brain obtained with noted acute right temporal and thalamic infarct, MRA of the head with severe stenosis of the right [employer] INSPECTOR, MRA of the neck with greater than 70% stenosis of the right ICA, unable to obtain carotid ultrasound today however discussed with PCP that may benefit from outpatient carotid ultrasound and will arrange follow-up with vascular surgery, echocardiogram with normal LV systolic function, EF 55%, bubble contrast negative for right to left shunt, PT/OT/Speech/Nutrition khari luation per protocol. Initially maintain on permissive hypertension however will resume patient medication given timeline, continue aspirin, continue high- dose statin therapy. Given patient underlying paroxysmal A. fib history patient is high risk for recurrent strokes therefore plan to initiate on Eliquis regimen in 7 days per Neurology recommendation to avoid hemorrhagic conversion, in interim will maintain on ASA only. Additionally, per Neurology recommendation will need to have repeat CT head in 1 week prior to Eliquis start on 05/04/21 and if no hemorrhage then start eliquis and d/c ASA therapy which was all discussed with Dr. Dunia Tabor diagnostic medical sonographer for his PCP office. Given holiday di as discussed with her will plan to have the PCU security control assessor contact the office 04/30/21 8 am to obtain visit either for that day or Monday at the latest. Upon discharge patient arrange for follow-up with PCP as noted, neurology, continue plan follow-up with Dr. Mcclendon with cardiology as already arranged in addition to vascular surgery given carotid findings. Weight / BMI Weight Weight: 188 lb 14.978 oz Body Mass Index (BMI) 28.3 ABG / Lab / Microbiology Data Result Diagrams: 04/28/21 05:42 04/28/21 05:42 Radiography Diagnostic Testing: Radiology Impression Echocardiogram 04/28/21 11:46 Interpretation Summary Normal LV size. Left ventricular systolic function is normal. The estimated ejection fraction is 55 %. Bubble contrast study negative for right to left interatrial shunt. Contrast injection was performed. Ordering Physician: Douglas Hernández Referring Physician: Douglas Kathleen Performed By: Rehan Prather RCS Meaningful Use Info Meaningful Use Diagnoses (Choose all that apply): Hemorrhagic CVA CVA Therapy Assessed for PT,OT and/or ST?: Yes Ischemic Stroke Antithrombotic order at d/c?: Yes Dx of Atrial fib/flutter?: Yes Anticoagulant at discharge?: Yes Statins at discharge?: Yes Primary Dx Acute Ischemic CVA?: Yes IV tPA ordered during stay?: No Reason IV t-PA not ordered: Medical Contraindication Discharge Plan Admission Admit Date/Time: 04/27/21 15:54 Primary Reason for Your Visit: Acute Stroke Attending Provider: Josy Armstrong Primary Care Provider: Douglas Kathleen Instructions Patient Instructions: What Is Atrial Flutter/Atrial Fibrillation?, Stroke: Taking Medicines, Stroke: Resources and Support, Stroke Self Care After, Carotid Artery Disease, Apixaban Oral tablet Additional Instructions / Restrictions: DISCHARGE DIAGNOSES: #1. Encephalopathy, acute in addition to left lower extremity paresthesias secondary to acute right temporal and thalamic infarct #2. Hypertension #3. Hyperlipidemia #4. PAF #5. Valvular heart disease #6. Chronic back pain with recent trauma with several fractures including C1-2 as well as thoracic Fx, followed with Dr. Chisholm #7. Chew Tobacco Abuse #8. GERD Discharge Orders/Prescriptions Prescriptions: New atorvastatin 80 mg Tablet 80 mg PO QHS 30 Days Qty: 30 RF: 0 aspirin 81 mg Tablet,Chewable 81 mg PO BREAKFAST 30 Days Qty: 30 RF: 0 Eliquis 5 mg tablet 5 mg PO BID Qty: 74 RF: 0 Continued Ocuvite Adult 50 Plus 250-5-1 mg capsule 1 cap PO DAILY RF: 0 ferrous sulfate [FeroSul] 325 mg (65 mg iron) tablet 325 mg PO DAILY RF: 0 omeprazole 20 mg capsule,delayed release(DR/EC) 20 mg PO DAILY RF: 0 diltiazem HCl 240 mg capsule,extended release 24hr 240 mg PO DAILY RF: 0 folic acid 1 mg tablet 1 mg PO DAILY RF: 0 multivitamin Tablet 1 tab PO DAILY RF: 0 thiamine HCl (vitamin B1) 100 mg tablet 100 mg PO DAILY RF: 0 metoprolol tartrate 100 mg tablet 100 mg PO BID Qty: 60 RF: 11 Referrals / Follow Up: Douglas Kathleen MD [Primary Care Provider] - Within 2 Weeks (Contacted Dr. Tabor, diagnostic medical sonographer physician for group 04/29/21. Office will be contacted 04/30/21 to arrange visit either that day of possibly latest Monday. Dr. Kathleen will arrange your repeat CT head and help you know if appropriate to transition from aspirin to eliquis.) Harvinder Mcclendon MD [STAFF PHYSICIAN] - (Please maintain already arranged follow-up coming in May 2021.) Romero Martin MD [STAFF PHYSICIAN] - (Follow-up within 2-4 weeks, may see BOOTH USHER. Follow-up for recent acute stroke.) Joce Purcell MD [STAFF PHYSICIAN] - (Please follow-up in 2-4 weeks to follow-up for carotid disease or first open visit. ) Disposition Disposition (needs filled in before D/C Order can be placed): Home, Self Care Charges/Coding Visit Charges Inpatient E&M: 18126 Disch Hosp
== END 2021-04-29 13:54 | disposition home or self-care (01) | DRG 65 ==
LOC: ED 15:34 → PCU 04-28 07:15
PROVIDERS: Admitting Provider Family Medicine; Emergency Provider Emergency Medicine; PCP Family Medicine; Visit Provider Family Medicine
DX: I63.211 Cerebral infarction due to unspecified occlusion or stenosis of right vertebral artery (principal); G81.94 Hemiplegia, unspecified affecting left nondominant side; G93.40 Encephalopathy, unspecified; I63.22 Cerebral infarction due to unspecified occlusion or stenosis of basilar artery; R29.700 NIHSS score 0; I10 Essential (primary) hypertension; E78.5 Hyperlipidemia, unspecified; I48.0 Paroxysmal atrial fibrillation; I34.0 Nonrheumatic mitral (valve) insufficiency; G89.29 Other chronic pain; D50.9 Iron deficiency anemia, unspecified; K21.9 Gastro-esophageal reflux disease without esophagitis; F17.220 Nicotine dependence, chewing tobacco, uncomplicated; Z98.1 Arthrodesis status; Z95.2 Presence of prosthetic heart valve; Z79.01 Long term (current) use of anticoagulants; Z79.899 Other long term (current) drug therapy; Z87.81 Personal history of (healed) traumatic fracture
CPT/HCPCS: 36415; 70450; 70544; 70549; 70553; 80048; 80053; 80061; 80076; 81001; 82140; 83735; 84443; 85025; 92610; 93005; 93306; 97162; 97166; 97802; 99251; 99284; A9575; J7030; Q9957; A4216; C8929; G0463; J3490

== ENCOUNTER → 2021-05-18 13:55 | Outpatient (CLI) | payer BC, SELFPAY ==
--- NOTE | 2021-05-18 13:56 | CT_ITS ---
STUDY: CT BRAIN WITHOUT CONTRAST REASON FOR EXAM: Male, 65 years old. Follow-up recent stroke. RADIATION DOSAGE (If Supplied By Facility): CTDIvol = ( 44.99 ) mGy, DLP = ( 812.98 ) mGycm TECHNIQUE: Transaxial CT imaging of the brain was performed without administration of intravenous contrast material. Individualized dose optimization techniques were used for this CT. COMPARISON: Comparison is made with prior study dated 04/27/2021. FINDINGS: Normal soft tissue structures. Normal calvarium. There is mild cerebral atrophy with widening of the extra-axial spaces and ventricular dilatation. There are areas of decreased attenuation within the white matter tracts of the supratentorial brain, consistent with microvascular disease changes. There is evidence of a 7.4 mm lacunar infarct in the posterior aspect of the right fior thalamus. Normal brainstem. Normal cerebellum. There is no intracranial hemorrhage. There are no findings of an acute ischemic infarction. Opacification of the maxillary sinuses and partial opacification of the ethmoid sinuses. CT/Brain/Head without Contrast IMPRESSION: Lacunar infarct in the posterior aspect of the right thalamus. Sinusitis. Electronically Signed: Michelet Alvarez MD at 14:28 EST , Service support ,
== END ==
PROVIDERS: PCP Family Medicine; Referring Provider Family Medicine; Visit Provider Family Medicine
DX: Z86.73 Personal history of transient ischemic attack (TIA), and cerebral infarction without residual deficits (principal)
CPT/HCPCS: 70450

== ENCOUNTER 2021-06-24 09:09 | Outpatient (CLI) | payer BC, SELFPAY ==
--- NOTE | 2021-06-24 09:16 | CDU_ITS ---
Reason For Study: carotid stenosis Rt. Velocities/BP Lt. Velocities/BP Prox CCA 83.8/9.5 cm/sec. Prox CCA 98.1/9.1 cm/sec. Mid CCA 96.9/13.4 cm/sec. Mid CCA 90.4/12.4 cm/sec. Dist CCA 90.3/12.1 cm/sec. Dist CCA 87.1/12.4 cm/sec. Prox ICA 103.4/14.7 cm/sec. Prox ICA 72.1/6.9 cm/sec. Mid ICA 91.7/16.0 cm/sec. Mid ICA 65.5/15.4 cm/sec. Dist ICA 78.6/14.7 cm/sec. Dist ICA 61.7/14.5 cm/sec. Rt. ICA/CCA = 1.1. Lt. ICA/CCA = .8. Prox ECA 122.9/12.1 cm/sec. Prox ECA 75.0/6.9 cm/sec. Rt. Vert. 52.2/10.7 cm/sec. Lt. Vert. 55.1/12.6 cm/sec. Right Extracranial There is intimal thickening but no significant atherosclerotic plaque noted in the right common carotid artery. There is homogeneous, smooth atherosclerotic plaque noted in the right internal carotid artery. There is intimal thickening but no significant atherosclerotic plaque noted in the right external carotid artery. Antegrade flow is noted in the right vertebral artery. Left Extracranial There is intimal thickening but no significant atherosclerotic plaque noted in the left common carotid artery. There is heterogeneous, smooth atherosclerotic plaque noted in the left internal carotid artery. There is intimal thickening but no significant atherosclerotic plaque noted in the left external carotid artery. Antegrade flow is noted in the left vertebral artery. Procedure Carotid Duplex 95005. This is a Carotid Duplex examination using B-mode, color flow and specral Doppler. The exam was diagnostic. Exam performed in department. VL/Carotid Duplex Ultrasound Interpretation Summary Smooth plaque at the proximal right internal carotid artery with less than 50% stenosis Less than 50% stenosis right external carotid artery Smooth plaque with slight calcific nature at the proximal left internal carotid artery with less than 50% stenosis Less than 50% stenosis left external carotid artery Patent and antegrade vertebral arteries bilaterally Ordering Physician: Joce Purcell Performed By: Miguel Perez RVT
== END 2021-06-24 23:59 | disposition short-term general hospital (02) ==
LOC: CVS 09:14
PROVIDERS: PCP Family Medicine; Referring Provider Surgery; Visit Provider Surgery
DX: I65.23 Occlusion and stenosis of bilateral carotid arteries (principal)
CPT/HCPCS: 93880

== ENCOUNTER → 2022-04-29 | Outpatient (CLI) | payer MEDICARE, BC, SELFPAY ==
--- NOTE | 2022-04-29 10:55 | CDU_ITS ---
Reason For Study: HX CVA, carotid stenosis Rt. Velocities/BP Lt. Velocities/BP Prox CCA 88.4/17.6 cm/sec. Prox CCA 140.3/19.5 cm/sec. Mid CCA 81.8/11.9 cm/sec. Mid CCA 62.5/14.6 cm/sec. Dist CCA 65.8/12.8 cm/sec. Dist CCA 83.4/18.3 cm/sec. Prox ICA 129.3/17.3 cm/sec. Prox ICA 89.5/18.3 cm/sec. Mid ICA 112.5/20.4 cm/sec. Mid ICA 61.3/17.1 cm/sec. Dist ICA 90.4/20.4 cm/sec. Dist ICA 62.9/18.2 cm/sec. Rt. ICA/CCA = 129.3/81.8=1.58. Lt. ICA/CCA = 1.43. Prox ECA 80.9/8.4 cm/sec. Prox ECA 76.0/10.9 cm/sec. Rt. Vert. 68.3/14.2 cm/sec. Lt. Vert. 49.3/15.3 cm/sec. Right Extracranial There is homogeneous, smooth atherosclerotic plaque noted in the right common carotid artery. There is heterogeneous, irregular atherosclerotic plaque noted in the right internal carotid artery. There is intimal thickening but no significant atherosclerotic plaque noted in the right external carotid artery. Antegrade flow is noted in the right vertebral artery. Left Extracranial There is intimal thickening but no significant atherosclerotic plaque noted in the left common carotid artery. There is heterogeneous, smooth atherosclerotic plaque noted in the left internal carotid artery. There is intimal thickening but no significant atherosclerotic plaque noted in the left external carotid artery. Antegrade flow is noted in the left vertebral artery. Procedure Carotid Duplex [id number]. This is a Carotid Duplex examination using B-mode, color flow and specral Doppler. The study was technically difficult. Exam performed in department. VL/Carotid Duplex Ultrasound Interpretation Summary Irregular plaque at the proximal right internal carotid artery with less than 5 0% stenosis Less than 50% stenosis right external carotid artery Smooth plaque with slight calcific nature at the proximal left internal carotid artery with less than 50% stenosis Less than 50% stenosis left external carotid artery Patent and antegrade vertebral arteries bilaterally No change from the previous examination of June 24, 2021 Ordering Physician: Romero Martin Referring Physician: Douglas Kathleen Performed By: Digna Garcia RDCS, RVT
== END | disposition home or self-care (01) ==
LOC: CVS 10:54
PROVIDERS: PCP Family Medicine; Visit Provider Psychiatry & Neurology Neurology
DX: I65.23 Occlusion and stenosis of bilateral carotid arteries (principal); Z86.73 Personal history of transient ischemic attack (TIA), and cerebral infarction without residual deficits
CPT/HCPCS: 93880